=== PATIENT | female | born 1960 | race Caucasian/White ===

== ENCOUNTER → 2019-04-09 | Outpatient (REF) | payer OTHER ==
[2019-04-09 11:54] LABS: HEMATOCRIT 39.8 % (36.0-47.0); HEMOGLOBIN 12.4 g/dl (12.0-15.5); MEAN CORPUSCULAR HGB CONC 31.2 g/dl (32.0-36.5); MEAN CORPUSCULAR VOLUME 105.9 fl (80.0-96.0); PLATELET COUNT, AUTOMATED 221 10^3/uL (150-450); RED BLOOD COUNT 3.76 10^6/uL (4.00-5.40); WHITE BLOOD COUNT 7.5 10^3/uL (4.0-10.0)
[2019-04-09 12:04] LABS: ALBUMIN 3.9 GM/DL (3.2-5.2); ALT/SGPT 58 U/L (12-78); BILIRUBIN,TOTAL 0.6 MG/DL (0.2-1.0); BLOOD UREA NITROGEN 14 MG/DL (7-18); CALCIUM LEVEL 9.2 MG/DL (8.5-10.1); CARBON DIOXIDE LEVEL 26 MEQ/L (21-32); CHLORIDE LEVEL 113 MEQ/L (98-107); CHOLESTEROL LEVEL 133 MG/DL (<200); CHOLESTEROL RISK RATIO 2.557 (<5); CREATININE FOR GFR 0.85 MG/DL (0.55-1.30); FERRITIN 38 NG/ML (8-252); FREE T4 0.55 NG/DL (0.76-1.46); GLOMERULAR FILTRATION RATE > 60.0 (>51); GLUCOSE, FASTING 85 MG/DL (70-100); HDL CHOLESTEROL 52 MG/DL (>40); LDL CHOLESTEROL 63 MG/DL (<100); NON-HDL-C 81 MG/DL; POTASSIUM SERUM 4.6 MEQ/L (3.5-5.1); SODIUM LEVEL 143 MEQ/L (136-145); TOTAL PROTEIN 6.6 GM/DL (6.4-8.2); TRIGLYCERIDES LEVEL 92 MG/DL (<150)
[2019-04-09 12:09] LABS: FOLATE 14.1 NG/ML; TOTAL 25(OH) VITAMIN D 20.5 NG/ML (30.0-100.0); VITAMIN B12 LEVEL > 2000 PG/ML
[2019-04-09 12:37] LABS: CREATININE, URINE 97.3 MG/DL; MAU/CREAT RATIO 119.2 MCG/MG (0.0-30.0)
== END ==
LOC: M SFHCPLAZ 08:37
PROVIDERS: ATTEND Nurse Practitioner Family
DX: Z98.84 Bariatric surgery status (principal); I10 Essential (primary) hypertension; E03.9 Hypothyroidism, unspecified

== ENCOUNTER → 2019-06-05 | Outpatient (REF) | payer OTHER | LOC: M SFHCPLAZ 09:35 | PROVIDERS: ATTEND Nurse Practitioner Family | DX: Z12.4 Encounter for screening for malignant neoplasm of cervix (principal) ==

== ENCOUNTER → 2019-07-02 | Outpatient (CLI) | payer OTHER ==
--- NOTE | 2019-07-06 14:08 | REPMRS ---
Patient History The patient states she had a clinical breast exam in 2018. Patient is postmenopausal. Family history of breast cancer at age 60 in mother, breast cancer in paternal grandmother. Priors done @ [facility] about 2 years ago. Patient states she has had a number of cysts removed from both breast years ago. Digital Woman Screen Mammo: July 02, 2019 - Exam #: [id number] Bilateral CC and MLO view(s) were taken. Technologist: Heather Aparicio, Technologist Prior study comparison: January 03, 2017, bilateral digital mammo screening bilat, performed at [facility]. January 26, 2015, bilateral digital mammo screening bilat, performed at [facility]. January 30, 2013, bilateral digital mammo screening bilat, performed at [facility]. FINDINGS: The breast tissue is heterogeneously dense. This may lower the sensitivity of mammography. There is a stable area of architectural distortion in the medial aspect of the left breast in this patient reports having had multiple cysts removed. There is a moderate amount of heterogeneously dense fibroglandular tissue which is fairly symmetric. There is no interval development of dominant mass, architectural distortion, or grouped microcalcification typical of malignancy. There has been no change in the appearance of the mammogram from the prior studies. 3-D tomosynthesis shows no additional findings. Assessment: BI-RADS/ACR category 2 mammogram. Benign Findings. Recommendation Breast MRI of both breasts in 6 months. Routine screening mammogram of both breasts in 1 year (for women over age 40). This patient's Lifetime Breast Cancer RIsk is estimated at 21.2 %. Annual screening Breast MRI scanniing is recommended for patient's whose lifetime risk assessment is over 20%. This mammogram was interpreted with the aid of an FDA-approved computer-aided dectection system. Electronically Signed By: Dani Barakat MD 07/06/19 [id number]
== END ==
LOC: M WHC 07:59
PROVIDERS: ATTEND Nurse Practitioner Family
DX: Z12.31 Encounter for screening mammogram for malignant neoplasm of breast (principal)

== ENCOUNTER → 2019-07-23 | Outpatient (REF) | payer OTHER ==
[2019-07-23 12:35] LABS: HEMATOCRIT 39.1 % (36.0-47.0); HEMOGLOBIN 12.4 g/dl (12.0-15.5); MEAN CORPUSCULAR HEMOGLOBIN 32.7 pg (27.0-33.0); MEAN CORPUSCULAR HGB CONC 31.7 g/dl (32.0-36.5); MEAN CORPUSCULAR VOLUME 103.2 fl (80.0-96.0); PLATELET COUNT, AUTOMATED 195 10^3/uL (150-450); RED BLOOD COUNT 3.79 10^6/uL (4.00-5.40); WHITE BLOOD COUNT 6.8 10^3/uL (4.0-10.0)
[2019-07-23 12:42] LABS: ALBUMIN 4.1 GM/DL (3.2-5.2); ALT/SGPT 51 U/L (12-78); BILIRUBIN,TOTAL 0.5 MG/DL (0.2-1.0); BLOOD UREA NITROGEN 18 MG/DL (7-18); CARBON DIOXIDE LEVEL 23 MEQ/L (21-32); CHLORIDE LEVEL 116 MEQ/L (98-107); CREATININE FOR GFR 0.81 MG/DL (0.55-1.30); FREE T4 0.88 NG/DL (0.76-1.46); GLOMERULAR FILTRATION RATE > 60.0 (>51); GLUCOSE, FASTING 92 MG/DL (70-100); SODIUM LEVEL 143 MEQ/L (136-145); THYROID STIMULATING HORMONE 0.985 uIU/ML (0.358-3.740); TOTAL PROTEIN 6.5 GM/DL (6.4-8.2)
[2019-07-23 12:44] LABS: FOLATE 19.6 NG/ML; VITAMIN B12 LEVEL > 2000 PG/ML
[2019-07-23 12:45] LABS: TOTAL 25(OH) VITAMIN D 34.7 NG/ML (30.0-100.0)
[2019-07-23 13:27] LABS: CREATININE, URINE 94.5 MG/DL; MAU/CREAT RATIO 576.7 MCG/MG (0.0-30.0)
== END ==
LOC: M SFHCPLAZ 08:34
PROVIDERS: ATTEND Nurse Practitioner Family
DX: I10 Essential (primary) hypertension (principal); E03.9 Hypothyroidism, unspecified; E55.9 Vitamin D deficiency, unspecified

== ENCOUNTER → 2019-07-23 | Outpatient (CLI) | payer OTHER ==
[2019-07-23 12:37] LABS: BLOOD UREA NITROGEN 18 MG/DL (7-18); CREATININE FOR GFR 0.78 MG/DL (0.55-1.30); GLOMERULAR FILTRATION RATE > 60.0 (>51)
== END ==
LOC: M PLALAB 09:03
PROVIDERS: ATTEND Psychiatry & Neurology Psychiatry
DX: Z51.81 Encounter for therapeutic drug level monitoring (principal); Z79.899 Other long term (current) drug therapy

== ENCOUNTER → 2019-07-28 | Outpatient (REF) | payer OTHER ==
[2019-07-28 12:31] LABS: CALCIUM, URINE 6.1 MG/DL
[2019-07-28 14:48] LABS: CALCIUM, 24 HOUR URINE 152.5 MG/24HR (42-353)
== END ==
LOC: M SFHCPLAZ 11:28
PROVIDERS: ATTEND Nurse Practitioner Family
DX: E34.9 Endocrine disorder, unspecified (principal)

== ENCOUNTER → 2019-08-17 | Outpatient (CLI) | payer OTHER ==
--- NOTE | 2019-08-26 09:48 | DEXA ---
AP SPINE L1 - L4 1.058 -1.1 0.0 LT FEMUR TOTAL 0.706 -2.4 -1.6 LT NECK 0.741 -2.1 -1.0 RT FEMUR TOTAL 0.758 -2.0 -0.8 RT NECK 0.714 -2.3 -1.5 TOTAL BODY TOTAL OTHER COMMENTS: There is low bone density of the spine and hips. FOLLOW-UP: Recommendation for the next bone density exam: 2 years. JEANETTE
== END ==
LOC: M WHC 14:29
PROVIDERS: ATTEND Nurse Practitioner Family
DX: E34.9 Endocrine disorder, unspecified (principal); M85.89 Other specified disorders of bone density and structure, multiple sites; Z82.62 Family history of osteoporosis; Z84.89 Family history of other specified conditions

== ENCOUNTER → 2019-10-30 | Outpatient (REF) | payer OTHER ==
[2019-10-30 17:48] LABS: BLOOD UREA NITROGEN 8 MG/DL (7-18); CALCIUM LEVEL 9.4 MG/DL (8.5-10.1); CARBON DIOXIDE LEVEL 26 MEQ/L (21-32); CHLORIDE LEVEL 111 MEQ/L (98-107); CREATININE FOR GFR 0.84 MG/DL (0.55-1.30); FREE T4 0.89 NG/DL (0.76-1.46); GLOMERULAR FILTRATION RATE > 60.0 (>51); GLUCOSE, FASTING 80 MG/DL (70-100); POTASSIUM SERUM 4.2 MEQ/L (3.5-5.1); SODIUM LEVEL 143 MEQ/L (136-145); TOTAL 25(OH) VITAMIN D 38.1 NG/ML (30.0-100.0)
[2019-10-30 18:31] LABS: CREATININE, URINE 48.5 MG/DL; MAU/CREAT RATIO 449.4 MCG/MG (0.0-30.0)
== END ==
LOC: M SFHCPLAZ 13:42
PROVIDERS: ATTEND Nurse Practitioner Family
DX: E03.9 Hypothyroidism, unspecified (principal); I10 Essential (primary) hypertension; R80.9 Proteinuria, unspecified; E55.9 Vitamin D deficiency, unspecified

== ENCOUNTER → 2019-12-02 | Outpatient (REF) | payer OTHER ==
[~2019-12-02] MED LIST: AMLO10TA5; CLON0.5T2; FLUO40CA; LEVO200T4; LITH1TAB; LITH45TASA; PROZ40CA; QUET200T2; REME45TA2; TOPI50TA9; TRAZ-257
[2019-12-02 17:37] LABS: COMPLEMENT C3 86 MG/DL (90-180)
[2019-12-02 17:38] LABS: COMPLEMENT C4 19 MG/DL (10-40); TOTAL PROTEIN 6.5 GM/DL (6.4-8.2)
[2019-12-02 18:15] LABS: TOTAL PROTEIN,RANDOM URINE 169.4 MG/DL (0.0-12.0)
[2019-12-03 11:35] LABS: ALBUMIN 4.19 GM/DL (3.29-5.55); ALBUMIN % 64.5 % (55.8-66.1); ALPHA-1-GLOBULIN % 3.8 % (2.9-4.9); ALPHA-1-GLOBULINS 0.25 GM/DL (0.17-0.41); ALPHA-2-GLOBULINS 0.56 GM/DL (0.42-0.99); ALPHA-2-GLOBULINS % 8.6 % (7.1-11.8); BETA-1-GLOBULINS % 6.1 % (4.7-7.2); BETA-2-GLOBULINS 0.29 GM/DL (0.19-0.55); BETA-2-GLOBULINS % 4.4 % (3.2-6.5); GAMMA GLOBULIN % 12.6 % (11.1-18.8); GAMMA GLOBULINS 0.82 GM/DL (0.65-1.58)
[2019-12-04 13:07] LABS: HEPATITIS B SURFACE ANTIBODY NEGATIVE (POSITIVE)
[2019-12-04 13:17] LABS: HEPATITIS B SURFACE ANTIGEN NEGATIVE (NEGATIVE)
[2019-12-04 13:45] LABS: HEPATITIS C VIRUS ABY INDEX 0.1 INDEX (<0.8)
[2019-12-04 13:46] LABS: HEPATITIS B CORE ANTIBODY IGM NEGATIVE (NEGATIVE)
[2019-12-08 16:09] LABS: ANCA-ATYPICAL <1:20 titer (Neg:<1:20); ANTI DS-DNA AB Negative (Negative); ANTINUCLEAR ANTIBODIES DIRECT Negative (Negative); CYTOPLASMIC NEUTROP AB ANCA-C <1:20 titer (Neg:<1:20); FREE KAPPA LIGHT CHAINS SERUM 20.5 mg/L (3.3-19.4); FREE LAMBDA LIGHT CHAINS SERUM 20.2 mg/L (5.7-26.3); KAPPA/LAMBDA RATIO SERUM 1.01 (0.26-1.65); PERINUCLEAR AB ANCA-P <1:20 titer (Neg:<1:20)
== END ==
LOC: M LAB REF 16:43
PROVIDERS: ATTEND Internal Medicine Nephrology
DX: R80.9 Proteinuria, unspecified (principal)

== ENCOUNTER → 2019-12-11 | Outpatient (CLI) | payer OTHER ==
[~2019-12-11] MED LIST changes: -AMLO10TA5; +AMLO1TAB25; +BRIN10TA4 PO; +POTA10TA14 PO
--- NOTE | 2019-12-11 09:51 | REP ---
RENAL ULTRASOUND: Real-time sonographic evaluation of the kidneys performed. The kidneys are normal in size and echotexture, right kidney measuring 10.7 x 5.7 x 4.3 cm and left kidney 10.7 x 4.5 x 4.9 cm. There is no renal mass or hydronephrosis. On duplex Doppler evaluation, resistive index 0.65 for the right kidney and 0.59 for the left kidney. Urinary bladder is well distended with no mass or calculus. IMPRESSION: Negative renal ultrasound.
== END ==
LOC: M WHC 08:08
PROVIDERS: ATTEND Internal Medicine Nephrology
DX: N18.2 Chronic kidney disease, stage 2 (mild) (principal); R80.9 Proteinuria, unspecified; I12.9 Hypertensive chronic kidney disease with stage 1 through stage 4 chronic kidney disease, or unspecified chronic kidney disease

== ENCOUNTER 2019-12-13 16:00 | Emergency (ER) | payer OTHER ==
[~2019-12-13] VITALS: Ht 167.6 cm; Wt 56.9 kg
[2019-12-13] MEDS ORDERED: REME45TA2 (16:07)
[2019-12-13] MEDS ORDERED: QUET200T2 (16:07)
[2019-12-13] MEDS ORDERED: TOPI50TA9 (16:07)
[2019-12-13] MEDS ORDERED: LITH1TAB (16:07)
[2019-12-13] MEDS ORDERED: CLON0.5T2 (16:07)
[2019-12-13] MEDS ORDERED: FLUO40CA (16:07)
[2019-12-13] MEDS ORDERED: LITH45TASA (16:07)
[2019-12-13] MEDS ORDERED: PROZ40CA (16:07)
[2019-12-13] MEDS ORDERED: LEVO200T4 (16:07)
[2019-12-13] MEDS ORDERED: TRAZ-257 (16:07)
[2019-12-13] MEDS ORDERED: AMLO1TAB25 (16:07)
[2019-12-13] MEDS ORDERED: NS 1,000 ML IV ONE (18:15)
[2019-12-13 18:42] LABS: BASO # 0.1 10^3/uL (0.0-0.2); BASO % 0.7 % (0.0-1.0); EOS # 0.3 10^3/uL (0.0-0.5); EOS % 3.9 % (0.0-3.0); HEMOGLOBIN 11.4 g/dl (12.0-15.5); LYMPH # 1.9 10^3/uL (1.5-5.0); LYMPH % 25.5 % (24.0-44.0); MEAN CORPUSCULAR HEMOGLOBIN 32.7 pg (27.0-33.0); MEAN CORPUSCULAR HGB CONC 31.7 g/dl (32.0-36.5); MEAN CORPUSCULAR VOLUME 103.2 fl (80.0-96.0); MONO # 0.4 10^3/uL (0.0-0.8); NEUTROPHILS # 4.8 10^3/uL (1.5-8.5); NEUTROPHILS % 64.6 % (36.0-66.0); PLATELET COUNT, AUTOMATED 183 10^3/uL (150-450); RED BLOOD COUNT 3.49 10^6/uL (4.00-5.40); WHITE BLOOD COUNT 7.4 10^3/uL (4.0-10.0)
[2019-12-13 19:15] LABS: ALBUMIN 3.4 GM/DL (3.2-5.2); ALT/SGPT 88 U/L (12-78); BILIRUBIN,DIRECT 0.1 MG/DL (0.0-0.2); BILIRUBIN,TOTAL 0.2 MG/DL (0.2-1.0); CK-MB VALUE MASS < 1.0 NG/ML (<3.6); CPK CREATINE PHOSPHOKINASE 31 U/L (26-192); LIPASE 92 U/L (73-393); MB/CK RELATIVE INDEX 3.23 (< OR =4); NT-PRO BNP 330 PG/ML (<125); TOTAL PROTEIN 5.9 GM/DL (6.4-8.2); TROPONIN I < 0.02 NG/ML (< 0.10)
--- NOTE | 2019-12-13 19:25 | ECGEPIP ---
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
[2019-12-13 19:47] VITALS: BP 114/58
== END 2019-12-13 20:23 | disposition home or self-care (01) ==
LOC: M ED 16:00
DX: M79.10 Myalgia, unspecified site (principal); R53.83 Other fatigue; D64.9 Anemia, unspecified; R00.1 Bradycardia, unspecified; R80.9 Proteinuria, unspecified; I10 Essential (primary) hypertension; E03.9 Hypothyroidism, unspecified; F41.9 Anxiety disorder, unspecified; F31.9 Bipolar disorder, unspecified; Z79.899 Other long term (current) drug therapy

== ENCOUNTER 2020-01-28 11:22 | Emergency (ER) | payer OTHER ==
[~2020-01-28] VITALS: Ht 167.6 cm; Wt 56.0 kg
[~2020-01-28 11:22] MED LIST changes: -BRIN10TA4 PO; -POTA10TA14 PO
[2020-01-28] MEDS ORDERED: BRIN10TA4 PO (11:34)
[2020-01-28] MEDS ORDERED: POTA10TA14 PO (11:34)
[2020-01-28] MEDS ORDERED: NS 1,000 ML IV ONE (12:00)
[2020-01-28] MEDS ORDERED: ONDANSETRON 4MG/2ML VIAL IV ONE (12:00)
[2020-01-28] MEDS ORDERED: KETOROLAC 30 MG/ML 1ML VIAL IV ONE (12:00)
[2020-01-28] MEDS ORDERED: ISOVUE-370 76% 100ML VIAL As Ordered ONE (12:24)
[2020-01-28 12:35] LABS: BASO % 0.6 % (0.0-1.0); EOS # 0.2 10^3/uL (0.0-0.5); EOS % 2.9 % (0.0-3.0); HEMATOCRIT 41.2 % (36.0-47.0); HEMOGLOBIN 13.1 g/dl (12.0-15.5); LYMPH # 1.3 10^3/uL (1.5-5.0); LYMPH % 18.6 % (24.0-44.0); MEAN CORPUSCULAR HEMOGLOBIN 32.6 pg (27.0-33.0); MEAN CORPUSCULAR HGB CONC 31.8 g/dl (32.0-36.5); MEAN CORPUSCULAR VOLUME 102.5 fl (80.0-96.0); MONO # 0.3 10^3/uL (0.0-0.8); MONO % 4.7 % (0.0-5.0); NEUTROPHILS # 5.1 10^3/uL (1.5-8.5); NEUTROPHILS % 72.8 % (36.0-66.0); PLATELET COUNT, AUTOMATED 214 10^3/uL (150-450); RED BLOOD COUNT 4.02 10^6/uL (4.00-5.40)
[2020-01-28 12:54] LABS: ALBUMIN 4.1 GM/DL (3.2-5.2); BILIRUBIN,DIRECT 0.2 MG/DL (0.0-0.2); BILIRUBIN,TOTAL 0.5 MG/DL (0.2-1.0)
--- NOTE | 2020-01-28 13:10 | REPVR ---
PROCEDURE INFORMATION: Exam: CT Abdomen And Pelvis With Contrast Exam date and time: 01/28/2020 11:53 AM Age: 59 years old Clinical indication: Nausea; Additional info: Sudden severe abd pain with n/v TECHNIQUE: Imaging protocol: Computed tomography of the abdomen and pelvis with intravenous contrast. Radiation optimization: All CT scans at this facility use at least one of these dose optimization techniques: automated exposure control; mA and/or kV adjustment per patient size (includes targeted exams where dose is matched to clinical indication); or iterative reconstruction. Contrast material: ISOVUE 370; Contrast volume: 100 ml; Contrast route: INTRAVENOUS (IV); COMPARISON: RENAL US 12/11/2019 8:30 AM FINDINGS: Liver: Normal. No mass. Gallbladder and bile ducts: There has been a cholecystectomy. Pancreas: Normal. No ductal dilation. Spleen: Normal. No splenomegaly. Adrenals: Normal. No mass. Kidneys and ureters: Mild bilateral hydroureteronephrosis. No obstructing calculus is identified. Slightly low-lying right kidney. Stomach and bowel: Postsurgical change of the stomach. Apparent mobile cecum, located within the left lower quadrant. No cecal volvulus. The colon is redundant. No evidence of bowel obstruction.No bowel wall pneumatosis. Appendix: See "Stomach and bowel" finding. Intraperitoneal space: Trace pelvic ascites. Vasculature: Minimal atherosclerotic changes. Lymph nodes: Few subcentimeter mesenteric lymph nodes. No pathologically enlarged lymph nodes. Bladder: Moderate distension of the urinary bladder Reproductive: Bilateral tubal ligation clips. Bones/joints: Mild bilateral hip joint DJD. Degenerative change of the spine. Soft tissues: Postsurgical change of the ventral abdominal wall. IMPRESSION: 1. Trace pelvic ascites. 2. Moderate distention of the urinary bladder, which likely accounts for mild bilateral hydroureteronephrosis. Electronically signed by: Trang Chou On 01/28/2020 13:10:44 PM
[2020-01-28 14:12] LABS: BILIRUBIN, URINE MANUAL NEGATIVE (NEGATIVE); GLUCOSE, URINE (UA) MANUAL NEGATIVE (NEGATIVE); KETONE, URINE MANUAL NEGATIVE (NEGATIVE); UROBILINOGEN, URINE MANUAL NORMAL (NORMAL)
[2020-01-28 15:04] VITALS: BP 125/59
--- NOTE | 2020-02-01 15:39 | ED PDOC ---
Post-Departure Follow-Up ene damico faxed formal report of ct abd/p for fu Charley Carpenter MD Feb 01, 2020 15:39
--- NOTE | 2020-02-16 13:36 | ECGEPIP ---
[facility] - ED Test Date: 2020-01-28 Pat Name: VIPIN HAGER Department: Room: - Gender: Female Supervisor Spinning: panfilo : 1960 Requested By: RODGER LOPES Order Number: [id number] Reading MD: Blanka Williamson Measurements Intervals [place] Rate: 42 P: 44 IA: 189 QRS: 31 QRSD: 93 T: 27 QT: 477 QTc: 402 Interpretive Statements SINUS BRADYCARDIA BORDERLINE ECG SEE SCANNED DOWNTIME REPORT
== END 2020-01-28 15:05 | disposition home or self-care (01) ==
LOC: M ED 11:22
DX: R10.9 Unspecified abdominal pain (principal); R18.8 Other ascites; N32.89 Other specified disorders of bladder; N13.30 Unspecified hydronephrosis; R11.2 Nausea with vomiting, unspecified; I10 Essential (primary) hypertension; E03.9 Hypothyroidism, unspecified; F31.9 Bipolar disorder, unspecified; F41.9 Anxiety disorder, unspecified; Z87.19 Personal history of other diseases of the digestive system
CPT/HCPCS: 74177; 80047; 80076; 83690; 85025; 93005; 96361; 96374; 96375; 99284; J1885; J2405; Q9967

== ENCOUNTER → 2020-02-10 | Outpatient (CLI) | payer OTHER ==
[~2020-02-10] MED LIST changes: +BRIN10TA4 PO; +POTA10TA14 PO; +PROHANCE 279.3MG/ML 15ML VIAL As Ordered ONE
--- NOTE | 2020-03-01 13:52 | REP ---
BILATERAL BREAST MRI WITH AND WITHOUT CONTRAST HISTORY: High risk of breast cancer. COMPARISON: Mammogram 07/02/2019. [facility] lifetime risk of breast cancer 21.2%. TECHNIQUE: Multiple sequences obtained in the axial, coronal, and sagittal planes prior to and following the intravenous administration of 11 mL ProHance. Images are evaluated in the Mytonomy software including dynamic post IV gadolinium axial T1 fat sat images, subtraction images, cover overlay images, and MIP reconstruction images. FINDINGS: There is an extreme pattern of parenchymal tissue bilaterally. There are a few tiny cysts scattered in the right breast, only a few millimeters in diameter. There are mildly dilated ducts anteriorly in the lower outer right breast. There is no axillary adenopathy bilaterally. I see no suspicious enhancing mass or morphologic abnormality bilaterally. IMPRESSION: BI-RADS Category 2 benign bilateral breast MRI. A few tiny cysts are seen in the right breast, as well as mildly dilated ducts. There is no suspicious enhancing mass or morphologic abnormality bilaterally. Supplemental screening MRI of the breasts is recommended for patients with an elevated lifetime risk of breast cancer of 20% or greater. The MRI and the annual screening mammography should be staggered every six months. [facility]
== END ==
LOC: M RAD 08:03
PROVIDERS: ATTEND Nurse Practitioner Family
DX: Z12.31 Encounter for screening mammogram for malignant neoplasm of breast (principal); N60.11 Diffuse cystic mastopathy of right breast
CPT/HCPCS: A9576; C8908

== ENCOUNTER → 2020-03-16 | Outpatient (CLI) | payer OTHER ==
[~2020-03-16] MED LIST changes: -PROHANCE 279.3MG/ML 15ML VIAL As Ordered ONE
[2020-03-16 14:06] LABS: BLOOD UREA NITROGEN 11 MG/DL (7-18); CREATININE FOR GFR 0.96 MG/DL (0.55-1.30); GLOMERULAR FILTRATION RATE > 60.0 (>51)
== END ==
LOC: M PLALAB 10:52
PROVIDERS: ATTEND Psychiatry & Neurology Psychiatry
DX: Z79.899 Other long term (current) drug therapy (principal)

== ENCOUNTER → 2020-03-16 | Outpatient (REF) | payer OTHER ==
[2020-03-16 13:34] LABS: BASO # 0.1 10^3/uL (0.0-0.2); BASO % 1.3 % (0.0-1.0); EOS # 0.3 10^3/uL (0.0-0.5); EOS % 4.4 % (0.0-3.0); HEMATOCRIT 40.1 % (36.0-47.0); HEMOGLOBIN 12.7 g/dl (12.0-15.5); LYMPH # 1.7 10^3/uL (1.5-5.0); MEAN CORPUSCULAR HEMOGLOBIN 32.5 pg (27.0-33.0); MEAN CORPUSCULAR HGB CONC 31.7 g/dl (32.0-36.5); MEAN CORPUSCULAR VOLUME 102.6 fl (80.0-96.0); MONO # 0.4 10^3/uL (0.0-0.8); MONO % 5.7 % (0.0-5.0); NEUTROPHILS # 4.3 10^3/uL (1.5-8.5); NEUTROPHILS % 63.3 % (36.0-66.0); PLATELET COUNT, AUTOMATED 224 10^3/uL (150-450); RED BLOOD COUNT 3.91 10^6/uL (4.00-5.40); WHITE BLOOD COUNT 6.8 10^3/uL (4.0-10.0)
[2020-03-16 14:22] LABS: ALBUMIN 4.1 GM/DL (3.2-5.2); ALT/SGPT 79 U/L (12-78); BILIRUBIN,TOTAL 0.4 MG/DL (0.2-1.0); BLOOD UREA NITROGEN 11 MG/DL (7-18); CALCIUM LEVEL 9.7 MG/DL (8.5-10.1); CARBON DIOXIDE LEVEL 25 MEQ/L (21-32); CHLORIDE LEVEL 111 MEQ/L (98-107); CREATININE FOR GFR 0.96 MG/DL (0.55-1.30); FERRITIN 83 NG/ML (8-252); FOLATE 16.3 NG/ML; FREE T4 0.86 NG/DL (0.76-1.46); GLOMERULAR FILTRATION RATE > 60.0 (>51); GLUCOSE, FASTING 87 MG/DL (70-100); POTASSIUM SERUM 3.7 MEQ/L (3.5-5.1); SODIUM LEVEL 140 MEQ/L (136-145); TOTAL 25(OH) VITAMIN D 29.8 NG/ML (30.0-100.0); TOTAL PROTEIN 6.8 GM/DL (6.4-8.2); VITAMIN B12 LEVEL 1184 PG/ML
== END ==
LOC: M SFHCPLAZ 10:53
PROVIDERS: ATTEND Nurse Practitioner Family
DX: D64.9 Anemia, unspecified (principal); R79.89 Other specified abnormal findings of blood chemistry; E03.9 Hypothyroidism, unspecified; E55.9 Vitamin D deficiency, unspecified

== ENCOUNTER → 2020-03-23 | Outpatient (CLI) | payer OTHER ==
--- NOTE | 2020-03-23 09:47 | REP ---
INDICATION: N13.30 HYDROURETERONEPHROSIS COMPARISON: 05/25/2019 TECHNIQUE: Real time clarke scale ultrasound examination using curved array transducer. Color Doppler evaluation of the intrarenal vasculature performed. FINDINGS: Bilateral kidneys are normal in contour, size, echogenicity, and reniform shape. No hydronephrosis, nephrolithiasis, cystic or renal mass lesion appreciated. No perinephric fluid collection. Right kidney measures 11.5 x 5.6 x 3.7 cm (RI 0.58). Left kidney measures 11.8 x 5.7 x 5.7 cm (RI 0.61). The bladder is under distended and grossly unremarkable current measuring 8.9 x 5.0 x 2.5 cm (58 cc). IMPRESSION: 1. Normal renal ultrasound. <Electronically signed by Aleksandar Powers > 03/23/20 0943
== END ==
LOC: M WHC 08:21
PROVIDERS: ATTEND Nurse Practitioner Family
DX: N13.30 Unspecified hydronephrosis (principal)

== ENCOUNTER → 2020-05-10 | Outpatient (REF) | payer OTHER ==
[2020-05-10 16:05] LABS: APPEARANCE, URINE HAZY (CLEAR); BACTERIA, URINE AUTO NEGATIVE (NEGATIVE); BILIRUBIN, URINE AUTO NEGATIVE (NEGATIVE); BLOOD, URINE BLOOD NEGATIVE (NEGATIVE); COLOR, URINE YELLOW (YELLOW); GLUCOSE, URINE (UA) AUTO NEGATIVE (NEGATIVE); KETONE, URINE AUTO NEGATIVE (NEGATIVE); LEUKOCYTE ESTERASE, URINE AUTO TRACE (NEGATIVE); NITRITE, URINE AUTO NEGATIVE (NEGATIVE); PROTEIN, URINE AUTO NEGATIVE (NEGATIVE); RBC, URINE AUTO 0 /HPF (0-3); SPECIFIC GRAVITY URINE AUTO 1.008 (1.002-1.035); SQUAMOUS EPITHELIAL CELL UR AU 5 /HPF (0-6); UROBILINOGEN, URINE AUTO 0.2 mg/dL (0.0-2.0); WBC, URINE AUTO 1 /HPF (0-3)
[2020-05-10 16:07] LABS: BASO # 0.1 10^3/uL (0.0-0.2); EOS # 0.3 10^3/uL (0.0-0.5); HEMATOCRIT 37.9 % (36.0-47.0); HEMOGLOBIN 12.1 g/dl (12.0-15.5); LYMPH # 1.5 10^3/uL (1.5-5.0); LYMPH % 22.8 % (24.0-44.0); MEAN CORPUSCULAR HEMOGLOBIN 33.3 pg (27.0-33.0); MEAN CORPUSCULAR HGB CONC 31.9 g/dl (32.0-36.5); MEAN CORPUSCULAR VOLUME 104.4 fl (80.0-96.0); MONO # 0.4 10^3/uL (0.0-0.8); MONO % 5.2 % (0.0-5.0); NEUTROPHILS # 4.5 10^3/uL (1.5-8.5); NEUTROPHILS % 66.9 % (36.0-66.0); PLATELET COUNT, AUTOMATED 215 10^3/uL (150-450); RED BLOOD COUNT 3.63 10^6/uL (4.00-5.40); WHITE BLOOD COUNT 6.7 10^3/uL (4.0-10.0)
[2020-05-10 16:52] LABS: ALT/SGPT 79 U/L (12-78); BILIRUBIN,TOTAL 0.5 MG/DL (0.2-1.0); BLOOD UREA NITROGEN 14 MG/DL (7-18); CALCIUM LEVEL 9.2 MG/DL (8.5-10.1); CARBON DIOXIDE LEVEL 25 MEQ/L (21-32); CHLORIDE LEVEL 111 MEQ/L (98-107); CREATININE FOR GFR 0.88 MG/DL (0.55-1.30); FERRITIN 131 NG/ML (8-252); FOLATE 17.4 NG/ML; FREE T4 0.75 NG/DL (0.76-1.46); GLOMERULAR FILTRATION RATE > 60.0 (>51); GLUCOSE, FASTING 84 MG/DL (70-100); MAGNESIUM LEVEL 2.9 MG/DL (1.8-2.4); POTASSIUM SERUM 4.5 MEQ/L (3.5-5.1); SODIUM LEVEL 140 MEQ/L (136-145); TOTAL PROTEIN 6.6 GM/DL (6.4-8.2); VITAMIN B12 LEVEL 1507 PG/ML
== END ==
LOC: M SFHCPLAZ 11:02
PROVIDERS: ATTEND Nurse Practitioner Family
DX: R53.83 Other fatigue (principal); R79.89 Other specified abnormal findings of blood chemistry; E03.9 Hypothyroidism, unspecified; Z98.84 Bariatric surgery status; R39.15 Urgency of urination

== ENCOUNTER → 2020-06-08 | Outpatient (REF) | payer OTHER ==
[2020-06-08 13:56] LABS: ALBUMIN 3.9 GM/DL (3.2-5.2); BILIRUBIN,TOTAL 0.6 MG/DL (0.2-1.0); CALCIUM LEVEL 9.4 MG/DL (8.5-10.1); CREATININE FOR GFR 1.05 MG/DL (0.55-1.30); FREE T4 0.81 NG/DL (0.76-1.46); GLOMERULAR FILTRATION RATE 57.1 (>51); MAGNESIUM LEVEL 2.9 MG/DL (1.8-2.4); POTASSIUM SERUM 4.2 MEQ/L (3.5-5.1); THYROID STIMULATING HORMONE 32.6 uIU/ML (0.358-3.740); TOTAL PROTEIN 6.6 GM/DL (6.4-8.2)
[2020-06-08 13:56] LABS: TOTAL PROTEIN,RANDOM URINE 164.4 MG/DL (0.0-12.0)
[2020-06-08 14:07] LABS: APPEARANCE, URINE HAZY (CLEAR); BACTERIA, URINE AUTO NEGATIVE (NEGATIVE); BILIRUBIN, URINE AUTO NEGATIVE (NEGATIVE); BLOOD, URINE BLOOD NEGATIVE (NEGATIVE); COLOR, URINE AMBER (YELLOW); GLUCOSE, URINE (UA) AUTO NEGATIVE (NEGATIVE); KETONE, URINE AUTO TRACE mg/dL (NEGATIVE); LEUKOCYTE ESTERASE, URINE AUTO TRACE (NEGATIVE); MUCUS, URINE SMALL (NEGATIVE); NITRITE, URINE AUTO NEGATIVE (NEGATIVE); PROTEIN, URINE AUTO 2+ mg/dL (NEGATIVE); RBC, URINE AUTO 2 /HPF (0-3); SPECIFIC GRAVITY URINE AUTO 1.012 (1.002-1.035); SQUAMOUS EPITHELIAL CELL UR AU 3 /HPF (0-6); UROBILINOGEN, URINE AUTO 0.2 mg/dL (0.0-2.0); WBC, URINE AUTO 2 /HPF (0-3)
== END ==
LOC: M SFHCPLAZ 10:03
PROVIDERS: ATTEND Nurse Practitioner Family
DX: E03.9 Hypothyroidism, unspecified (principal); R00.1 Bradycardia, unspecified

== ENCOUNTER → 2020-06-09 | Outpatient (CLI) | payer OTHER | LOC: M PLALAB 10:24 | PROVIDERS: ATTEND Internal Medicine Cardiovascular Disease | DX: R00.1 Bradycardia, unspecified (principal) ==

== ENCOUNTER → 2020-07-15 | Outpatient (REF) | payer OTHER ==
[~2020-07-15] MED LIST changes: +ENEMCAP PR; +MAGN500T6 PO; +PRIS100T PO
[2020-07-15 11:05] LABS: ALBUMIN 4.2 GM/DL (3.2-5.2); BILIRUBIN,TOTAL 0.4 MG/DL (0.2-1.0); CALCIUM LEVEL 9.7 MG/DL (8.5-10.1); CREATININE FOR GFR 1.13 MG/DL (0.55-1.30); FREE T4 1.98 NG/DL (0.76-1.46); GLOMERULAR FILTRATION RATE 52.5 (>51); POTASSIUM SERUM 4.2 MEQ/L (3.5-5.1); THYROID STIMULATING HORMONE 0.143 uIU/ML (0.358-3.740); TOTAL 25(OH) VITAMIN D 37.2 NG/ML (30.0-100.0); TOTAL PROTEIN 6.8 GM/DL (6.4-8.2)
== END ==
LOC: M SFHCPLAZ 09:01
PROVIDERS: ATTEND Nurse Practitioner Family
DX: I10 Essential (primary) hypertension (principal); E03.9 Hypothyroidism, unspecified; E55.9 Vitamin D deficiency, unspecified

== ENCOUNTER 2020-07-19 13:53 | Emergency (ER) | payer OTHER ==
[~2020-07-19] VITALS: Ht 167.6 cm; Wt 45.5 kg
[~2020-07-19 13:53] MED LIST changes: -ENEMCAP PR; -MAGN500T6 PO; -PRIS100T PO
--- OUTSIDE RECORDS SUMMARY | 2020-07-19 14:00 | CCD ---
Author Author [facility] Organization [facility] Address Unknown Phone Unavailable Care Team Providers Care Metal Base Blocker Name Role Phone Dalila Barnes Unavailable PROBLEMS Type Condition ICD9-CM Code [id number] Code Onset Dates Condition S tatus W/U Status Risk SNOMED Code Notes Problem Migraine without aura and without status migrain osus, not intractable G43.009 Active confirmed 352258904 Problem Acquired hypothyroidism E03.9 Active confirmed 556491084 Problem Bariatric surgery status Z98.84 Active confirmed 601900912 Problem Vitamin D deficiency E55.9 Active confirmed 44956309 Problem Essential hypertension I10 Active confirmed 61494146 Problem Major depressive disorder, recurrent, moderate F33 .1 Active confirmed 738585508 Problem Generalized anxiety disorder F41.1 Active confirme d 67975105 Problem Elevated parathyroid hormone E34.9 Active confirme d 7107372 Problem Macrocytosis D75.89 Active confirmed 5242779 00 Problem Ventral hernia without obstruction or gangrene K43 .9 Active confirmed 965789532 Problem Decreased appetite R63.0 Active confirmed 6 4654745 Problem At high risk for breast cancer Z91.89 Active c onfirmed 524852235479709 Problem Elevated LFTs R79.89 Active confirmed 803077 001 Problem Bipolar disorder, in full remission, most recent episode depressed F31.76 Active confirmed 69638122 Problem Microalbuminuria R80.9 Active confirmed 312 968458 Problem Osteopenia after menopause M85.80 Active confirmed 722836625 Problem Hyperparathyroidism E21.3 Active confirmed 91656937 Problem Hypoglycemia E16.2 Active confirmed 1205495 03 ALLERGIES No Known Allergies ENCOUNTERS from 1960 to 2020-07-15 Encounter Location Date Provider Diagnosis [facility] [address] [place] [address] Jul, 2 021 [facility] IMMUNIZATIONS Vaccine Route Administration Date Status Influenza (18 yrs & older) Flublok IM Intramuscular Mar 16, 2020 Administered Influenza (18 yrs & older) Flublok IM Intramuscular Apr 07, 2019 Administered zz*Influenza Preservative Free (36 months & up) Unknown Apr 07, 2019 Administered SOCIAL HISTORY Tobacco Use: Social History Observation Description Date Details (start date - stop date) Never Smoker Sex Assigned At : Social History Observation Description Sex Assigned At Unknown Education: Question Answer Notes Level of Education: College Audit Question Answer Notes Total Score: 0 Interpretation: Alcohol Education Language: Question Answer Notes Languages spoken: Liberian Moravian: Question Answer Notes Moravian 05 Spiritism Sexual Hx: Question Answer Notes Had sex in the last 12 months (vaginal, oral, or anal)? No LMP: Ablation Have you ever had an STD? No Drug and Alcohol Question Answer Notes Total Score: 0 Interpretation: No problems reported Tobacco Use: Question Answer Notes Are you a: never smoker REASON FOR REFERRAL No Information VITAL SIGNS No information MEDICATIONS Medication SIG (Take, Route, Frequency, Duration) Notes Start Da te End Date Status Mirtazapine 45 MG 1 tablet at bedtime Orally Once a day for 30 day(s) Active Calcium 600-D 600-200 MG-UNIT taking total of 1200/400 Orally Once a day Active Topiramate 25 MG 1 tablet Orally Once a day for 30 day(s) Jul, Active Ergocalciferol 04236 IU 1 tablet with meal Orally once a week for 90 days Active Levothyroxine Sodium 200 MCG 1 tablet in the morning o n an empty stomach Orally Once a day Active Amlodipine Besy-Benazepril HCl 5-20 MG TAKE ONE CAPSULE BY M OUTH EVERY DAY Oral Active Famotidine 40 MG 1 tablet at bedtime Orally Once a day for 30 da y(s) Jun, Active TraZODone HCl 100 MG 2 tablet at bedtime as needed Orally Once a day Active Levothyroxine Sodium 25 MCG 1 tablet in the morning on an empty stomach Orally Once a day with the 200mcg tab May, N ot-Taking [place] Carbonate ER 300 MG 1 tablet at bedtime Orally Once a day for 30 day(s) Active Iron 28 MG 1 tablet Orally Once a day Active Quetiapine Fumarate 200 MG 1 tablet at bedtime Orally before bedtime Not-Taking Bariatric Fusion - 1 tab Orally Daily Active Klonopin 0.5 MG 1 tablet Orally four times a day Not-Taking Clotrimazole 10 MG 1 los Mouth/Throat Five times a day for 14 day(s) Jul, Active [place] Carbonate ER 450 MG 1 tablet at bedtime Orally Once a day for 30 day(s) Active Ziprasidone HCl 20 MG 1 capsule with food Orally Twice a day for 30 day(s) Not-Taking Levothyroxine Sodium 25 MCG 1 tablet in the morning on an empty stomach Orally Once a day for 30 day(s) Jul, Active Ondansetron HCl 4 MG 1 tablet Orally every 8 hour s as needed for nausea/vomiting for 10 day(s) Jul, Active PROCEDURES No Information RESULTS No Results REASON FOR VISIT appt w/ Dr Spann MEDICAL (GENERAL) HISTORY Type Description Date Medical History HTN Medical History Migraines without aura Medical History Hypothyroid - Graves disease s/p ablatio n with MOCTEZUMA in 1984 Medical History Bipolar disorder with major depression - Dr Roy Medical History Hx of Eating Disorder s/p Bariatric surg radha Medical History hyperparathyroidism Medical History Vitamin D deficiency Medical History ventral hernia Medical History Microalbuminuria Medical History Osteopenia after menopause Surgical History gastric bypass 2012 Surgical History Left knee replacement 2014 Surgical History cholecystectomy 1994 Surgical History C section 1994 Surgical History appendectomy 2013 Surgical History Uterine Ablation 2000 Surgical History colonoscopy in [place] 2016 Goals Section No Information Health Concerns No Information MEDICAL EQUIPMENT No Information MENTAL STATUS No Information FUNCTIONAL STATUS No Information ASSESSMENTS No Information PLAN OF TREATMENT Medication Medication Name Sig Start Date Stop Date Levothyroxine Sodium 25 MCG 1 tablet in the morning on an empty stomach Orally Once a day for 30 day(s) Jul, Amlodipine Besy-Benazepril HCl 5-20 MG TAKE ONE CAPSULE BY M OUTH EVERY DAY Oral Ondansetron HCl 4 MG 1 tablet Orally every 8 hour s as needed for nausea/vomiting for 10 day(s) Jul, Clotrimazole 10 MG 1 los Mouth/Throat Five times a day f or 14 day(s) Jul, Topiramate 25 MG 1 tablet Orally Once a day for 30 day(s) Jul Levothyroxine Sodium 200 MCG 1 tablet in the morning o n an empty stomach Orally Once a day Next Appt Details Provider Name:Dalila Barnes, 2020-08-10 11:0 0:00 AM, [address] [place], [address], Insurance Providers Payer Name Payer Address Payer Phone Insured Name Patient Relati onship to Insured Coverage Start Date Coverage End Date [facility] CLAIMS DEPT [address] [facility] [phone] VIPIN CHAUHAN self
--- OUTSIDE RECORDS SUMMARY | 2020-07-19 14:00 | CCD ---
Author Author [facility] Organization [facility] Address Unknown Phone Unavailable Care Team Providers Care Digital Communications Manager Name Role Phone Dalila Barnes Natanael PROBLEMS Type Condition ICD9-CM Code ZZX68-AU Code Onset Dates Condition S tatus SNOMED Code Notes Problem Migraine without aura and without status migrain osus, not intractable G43.009 Active 024119650 Problem Acquired hypothyroidism E03.9 Active 72387932 2 Problem Bariatric surgery status Z98.84 Active 8656140 06 Problem Vitamin D deficiency E55.9 Active 26548052 Problem Essential hypertension I10 Active 20299623 Problem Major depressive disorder, recurrent, moderate F33 .1 Active 427550645 Problem Generalized anxiety disorder F41.1 Active 218 67394 Problem Elevated parathyroid hormone E34.9 Active 726 2008 Problem Macrocytosis D75.89 Active 635086564 Problem Ventral hernia without obstruction or gangrene K43 .9 Active 209487698 Problem Decreased appetite R63.0 Active 77314116 Problem At high risk for breast cancer Z91.89 Active 4 80357107524416 Problem Elevated LFTs R79.89 Active 795588108 Problem Bipolar disorder, in full remission, most recent episode depressed F31.76 Active 56586854 Problem Microalbuminuria R80.9 Active 830354146 Problem Osteopenia after menopause M85.80 Active 39538 4005 Problem Hyperparathyroidism E21.3 Active 82588172 Problem Hypoglycemia E16.2 Active 883588137 ALLERGIES No Known Allergies ENCOUNTERS from 1960 to 2020-06-09 Encounter Location Date Provider Diagnosis [address] [place] [address] Jun, [facility] IMMUNIZATIONS Vaccine Route Administration Date Status Influenza [...] Education Language: Question Answer Notes Languages spoken: Tajik Christian: Question Answer Notes Christian 05 Bahai Sexual Hx: Question Answer Notes Had sex [...] Notes Start Da te End Date Status Levothyroxine Sodium 25 MCG 1 tablet in the morning on an empty stomach Orally Once a day with the 200mcg tab for 30 days May, Active Norvasc 10mg 1 tab orally Daily for 30 days Active Bariatric Fusion - 1 tab Orally Daily Active Ziprasidone HCl 20 MG 1 capsule with food Orally Twice a day for 30 day(s) Active Calcium 600-D 600-200 MG-UNIT taking total of 1200/400 Orally Once a day Active Mirtazapine 45 MG 1 tablet at bedtime Orally Once a day for 30 day(s) Active [place] Carbonate ER 450 MG 1 tablet at bedtime Orally Once a day for 30 day(s) Active Klonopin 0.5 MG 1 tablet Orally four times a day Active Iron 28 MG 1 tablet Orally Once a day Active Quetiapine Fumarate 200 MG 1 tablet at bedtime Orally before bedtime Active Levothyroxine Sodium 200 MCG 1 tablet in the morning o n an empty stomach Orally Once a day for 30 days Active Topiramate 50 MG 1 tablet Orally Once a day for 30 days Active Famotidine 40 MG 1 tablet at bedtime Orally Once a day for 30 da y(s) Jun, Active [place] Carbonate ER 300 MG 1 tablet at bedtime Orally Once a day for 30 day(s) Active TraZODone HCl 100 MG 2 tablet at bedtime as needed Orally Once a day Active Ergocalciferol 72727 IU 1 tablet with meal Orally once a week for 90 days Active PROCEDURES No Information RESULTS No Results REASON FOR VISIT appt/triage MEDICAL (GENERAL) HISTORY Type Description Date Medical [...] Uterine Ablation 2000 Surgical History colonoscopy in [place] 2016 Goals Section No Information Health Concerns No Information MEDICAL EQUIPMENT No Information MENTAL STATUS No Information FUNCTIONAL STATUS No Information ASSESSMENTS No Information PLAN OF TREATMENT Medication Medication Name Sig Start Date Stop Date Levothyroxine Sodium 200 MCG 1 tablet in the morning o n an empty stomach Orally Once a day for 30 days Famotidine 40 MG 1 tablet at bedtime Orally Once a day fo r 30 day(s) Jun, Norvasc 10mg 1 tab orally Daily for 30 days Ergocalciferol 31790 IU 1 tablet with meal Orally once a week fo r 90 days Levothyroxine Sodium 25 MCG 1 tablet in the morning on an empty stomach Orally Once a day with the 200mcg tab for 30 days May, Insurance Providers Payer Name Payer Address Payer Phone Insured Name Patient Relati onship to Insured Coverage Start Date Coverage End Date [facility] CLAIMS DEPT [address] [place] [phone] VIPIN CHAUHAN
--- OUTSIDE RECORDS SUMMARY | 2020-07-19 14:00 | CCD ---
Author Author [facility] Organization [facility] Address Unknown Phone Unavailable Care Team Providers Care Gluing Crew Leader Name Role Phone Dalila Barnes Unavailable PROBLEMS Type Condition ICD9-CM Code FRG23-EK Code Onset Dates Condition S tatus SNOMED Code Notes Problem Migraine without aura and without status migrain osus, not intractable G43.009 Active 094110426 Problem Acquired hypothyroidism E03.9 Active 81093274 2 Problem Bariatric surgery status Z98.84 Active 4919024 06 Problem Vitamin D deficiency E55.9 Active 16541006 Problem Essential hypertension I10 Active 86765566 Problem Major depressive disorder, recurrent, moderate F33 .1 Active 245133307 Problem Generalized anxiety disorder F41.1 Active 218 79427 Problem Elevated parathyroid hormone E34.9 Active 726 2008 Problem Macrocytosis D75.89 Active 713141018 Problem Ventral hernia without obstruction or gangrene K43 .9 Active 646296857 Problem Decreased appetite R63.0 Active 28641375 Problem At high risk for breast cancer Z91.89 Active 4 50585947307332 Problem Elevated LFTs R79.89 Active 256955937 Problem Bipolar disorder, in full remission, most recent episode depressed F31.76 Active 27366469 Problem Microalbuminuria R80.9 Active 232136370 Problem Osteopenia after menopause M85.80 Active 97820 4005 Problem Hyperparathyroidism E21.3 Active 62562800 Problem Hypoglycemia E16.2 Active 860294747 ALLERGIES No Known Allergies ENCOUNTERS from 1960 to 2020-05-11 Encounter Location Date Provider Diagnosis [facility] [address] [place] [address] 09 May, 2 020 Dalila Barnes Acquired hypothyroidism E03.9 IMMUNIZATIONS Vaccine Route Administration Date Status Influenza [...] Education Language: Question Answer Notes Languages spoken: Moroccan Denominational: Question Answer Notes Denominational 05 Lutheran Sexual Hx: Question Answer Notes Had sex [...] Notes Start Da te End Date Status Ziprasidone HCl 20 MG 1 capsule with food Orally Twice a day for 30 day(s) Active Mirtazapine 45 MG 1 tablet at bedtime Orally Once a day for 30 day(s) Active TraZODone HCl 50 MG 1-2 tablet at bedtime as needed Orally Once a day Active Magnesium 500 MG 1 tablet with a meal Orally Once a day Active [place] Carbonate ER 450 MG 1 tablet at bedtime Orally Once a day for 30 day(s) Active Iron 28 MG 1 tablet Orally Once a day Active Levothyroxine Sodium 25 MCG 1 tablet in the morning on an empty stomach Orally Once a day with the 200mcg tab for 90 day(s) May, Active Ergocalciferol 35206 IU 1 tablet with meal Orally once a week for 90 days Active [place] Carbonate ER 300 MG 1 tablet at bedtime Orally Once a day for 30 day(s) Active Quetiapine Fumarate 200 MG 1 tablet at bedtime Orally before bedtime Active Calcium 600-D 600-200 MG-UNIT taking total of 1200/400 Orally Once a day Active Topiramate 50 MG 1 tablet Orally Once a day for 30 days Active Norvasc 10mg 1 tab orally Daily for 90 days Active Levothyroxine Sodium 200 MCG 1 tablet in the morning o n an empty stomach Orally Once a day Active Klonopin 0.5 MG 1 tablet Orally four times a day Active Bariatric Fusion - 1 tab Orally Daily Active PROCEDURES No Information RESULTS No Results REASON FOR VISIT labs MEDICAL (GENERAL) HISTORY Type Description Date Medical [...] Uterine Ablation 2000 Surgical History colonoscopy in [place] 2017 Goals Section No Information Health Concerns No Information MEDICAL EQUIPMENT No Information MENTAL STATUS No Information FUNCTIONAL STATUS No Information ASSESSMENTS Encounter Date Diagnosis Assessment Notes Treatment Notes Treatm ent Clinical Notes May, Acquired hypothyroidism (ICD-10 - E03.9) PLAN OF TREATMENT Medication Medication Name Sig Start Date Stop Date Levothyroxine Sodium 25 MCG 1 tablet in the morning on an empty stomach Orally Once a day with the 200mcg tab for 90 day(s) May, Levothyroxine Sodium 200 MCG 1 tablet in the morning o n an empty stomach Orally Once a day Next Appt Details Provider Name:Dalila Barnes, 2020-06-08 08:3 0:00 AM, [address] [place], [address], Insurance Providers Payer Name Payer Address Payer Phone Insured Name Patient Relati onship to Insured Coverage Start Date Coverage End Date [facility] CLAIMS DEPT [address] [facility] [phone] VIPIN CHAUHAN
--- OUTSIDE RECORDS SUMMARY | 2020-07-19 14:00 | CCD ---
Author Author [facility] Organization [facility] Address Unknown Phone Unavailable Care Team Providers Care Lead Nuclear Medicine Technologist Name Role Phone Dalila Barnes Unavailable PROBLEMS Type Condition ICD9-CM Code [id number] Code Onset Dates Condition S tatus SNOMED Code Notes Problem Migraine without aura and without status migrain osus, not intractable G43.009 Active 448680582 Problem Acquired hypothyroidism E03.9 Active 21371233 2 Problem Bariatric surgery status Z98.84 Active 5747397 06 Problem Vitamin D deficiency E55.9 Active 94080983 Problem Essential hypertension I10 Active 84597118 Problem Major depressive disorder, recurrent, moderate F33 .1 Active 970926912 Problem Generalized anxiety disorder F41.1 Active 218 74265 Problem Elevated parathyroid hormone E34.9 Active 726 2008 Problem Macrocytosis D75.89 Active 669635363 Problem Ventral hernia without obstruction or gangrene K43 .9 Active 243840316 Problem Decreased appetite R63.0 Active 87825623 Problem At high risk for breast cancer Z91.89 Active 4 40353201957348 Problem Elevated LFTs R79.89 Active 917617440 Problem Bipolar disorder, in full remission, most recent episode depressed F31.76 Active 55238713 Problem Microalbuminuria R80.9 Active 610890558 Problem Osteopenia after menopause M85.80 Active 73741 4005 Problem Hyperparathyroidism E21.3 Active 37493392 Problem Hypoglycemia E16.2 Active 027360524 ALLERGIES No Known Allergies ENCOUNTERS from 1960 to 2020-05-12 Encounter Location Date Provider Diagnosis [facility] [address] [place] [address] 08 Dec, 2 020 Dalila Barnes Fatigue, unspecified type R53.83 ; Decreased appetite R63.0 ; Urinary urgency R39.15 ; Elevated LFTs R79.89 ; Acquired hypothyroidism E03.9 ; Bariatric surgery status Z98.84 and Essential hypertension I10 IMMUNIZATIONS Vaccine Route Administration Date Status Influenza [...] Education Language: Question Answer Notes Languages spoken: Persian Evangelical: Question Answer Notes Evangelical 05 Yarsani Sexual Hx: Question Answer Notes Had sex in the last 12 months (vaginal, oral, or anal)? No LMP: Ablation Have you ever had an STD? No Drug and Alcohol Question Answer Notes Total Score: 0 Interpretation: No problems reported Tobacco Use: Question Answer Notes Are you a: never smoker REASON FOR REFERRAL No Information VITAL SIGNS Weight 111 lbs May, Height 66 in May, BMI 17.91 kg/m2 May, Heart Rate 59 /min May, Respiratory Rate 18 /min May, Temperature 97.5 degrees Fahrenheit May, Oximetry 93 May, Blood pressure systolic 120 mm Hg May, Blood pressure diastolic 70 mm Hg May, MEDICATIONS Medication SIG (Take, Route, Frequency, Duration) [...] a meal Orally Once a day Active [place] Carbonate ER 450 MG 1 tablet at bedtime Orally Once a day for 30 day(s) Active Iron 28 MG 1 tablet Orally Once a day Active Levothyroxine Sodium 25 MCG 1 tablet in the morning on an empty stomach Orally Once a day with the 200mcg tab for 90 day(s) May, Active Ergocalciferol 21576 IU 1 tablet with meal Orally once a week for 90 days Active [place] Carbonate ER 300 MG 1 tablet at [...] Orally Daily Active PROCEDURES No Information RESULTS REASON FOR VISIT Urgent Care follow up uti. Was given Marobid bid for seven days. Azo three time s a day for two days , [facility] notes in [place] MEDICAL (GENERAL) HISTORY Type Description Date Medical [...] Uterine Ablation 2000 Surgical History colonoscopy in [place] 2016 Goals Section No Information Health Concerns No Information MEDICAL EQUIPMENT No Information MENTAL STATUS No Information FUNCTIONAL STATUS No Information ASSESSMENTS Encounter Date Diagnosis Assessment Notes Treatment Notes Treatm ent Clinical Notes May, Fatigue, unspecified type (ICD-10 - R53.83) check labs and f/up as indicated May, Decreased appetite (ICD-10 - R63.0) advised 6 small meals/day with BOOST supplements May, Urinary urgency (ICD-10 - R39.15) May, Elevated LFTs (ICD-10 - R79.89) May, Acquired hypothyroidism (ICD-10 - E03.9) labs today May, Bariatric surgery status (ICD-10 - Z98.84) May, Essential hypertension (ICD-10 - I10) PLAN OF TREATMENT Medication Medication Name Sig Start Date Stop Date Levothyroxine Sodium 25 MCG 1 tablet in the morning on an empty stomach Orally Once a day with the 200mcg tab for 90 day(s) May, Levothyroxine Sodium 200 MCG 1 tablet in the morning o n an empty stomach Orally Once a day Treatment Notes Assessment Notes Clinical Notes Fatigue, unspecified type check labs and f/up as indicated Decreased appetite advised 6 small meals/day with BOOST sup plements Acquired hypothyroidism labs today Next Appt Details 4 Weeks Reason:follow-up and weight chec k Provider Name:Dalila Barnes, 2020-06-08 08:3 0:00 AM, [address] [place], [address], Follow Up:4 Weeksfollow-up and weight check Insurance Providers Payer Name Payer Address Payer Phone Insured Name Patient Relati onship to Insured Coverage Start Date Coverage End Date [facility] CORPORATE CLAIMS DEPT [address] [facility] [phone] VIPIN CHAUHAN self
--- OUTSIDE RECORDS SUMMARY | 2020-07-19 14:00 | CCD ---
Author Author [facility] Organization [facility] Address Unknown Phone Unavailable Care Team Providers Care Driver Merchandiser Name Role Phone Dalila Barnes Unavailable PROBLEMS Type Condition ICD9-CM Code [id number] Code Onset Dates Condition S tatus SNOMED Code Notes Problem Migraine without aura and without status migrain osus, not intractable G43.009 Active 881376090 Problem Acquired hypothyroidism E03.9 Active 36262936 2 Problem Bariatric surgery status Z98.84 Active 9073737 06 Problem Vitamin D deficiency E55.9 Active 65227179 Problem Essential hypertension I10 Active 80977799 Problem Major depressive disorder, recurrent, moderate F33 .1 Active 607117767 Problem Generalized anxiety disorder F41.1 Active 218 80455 Problem Elevated parathyroid hormone E34.9 Active 726 2008 Problem Macrocytosis D75.89 Active 218330320 Problem Ventral hernia without obstruction or gangrene K43 .9 Active 973469340 Problem Decreased appetite R63.0 Active 22071682 Problem At high risk for breast cancer Z91.89 Active 4 70244624821733 Problem Elevated LFTs R79.89 Active 668479840 Problem Bipolar disorder, in full remission, most recent episode depressed F31.76 Active 94793528 Problem Microalbuminuria R80.9 Active 915519812 Problem Osteopenia after menopause M85.80 Active 30451 4005 Problem Hyperparathyroidism E21.3 Active 65565921 Problem Hypoglycemia E16.2 Active 901404485 ALLERGIES No Known Allergies ENCOUNTERS from 1960 to 2020-06-26 Encounter Location Date Provider Diagnosis [facility] [place] [address] [place] [address] Jun, Dalila Barnes Acquired hypothyroidism E03.9 ; Elevated parathyroid hormone E34.9 and Essential hypertension I10 IMMUNIZATIONS Vaccine Route [...] Education Language: Question Answer Notes Languages spoken: Upper Sorbian Scientology: Question Answer Notes Scientology 05 Zoroastrian Sexual Hx: Question Answer Notes Had sex in the last 12 months (vaginal, oral, or anal)? No LMP: Ablation Have you ever had an STD? No Drug and Alcohol Question Answer Notes Total Score: 0 Interpretation: No problems reported Tobacco Use: Question Answer Notes Are you a: never smoker REASON FOR REFERRAL No Information VITAL SIGNS Weight 112 lbs Jun, Height 66 in Jun, BMI 18.08 kg/m2 Jun, Heart Rate 76 /min Jun, Respiratory Rate 18 /min Jun, Temperature 98.2 degrees Fahrenheit Jun, Oximetry 100 Jun, Blood pressure systolic 100 mm Hg Jun, Blood pressure diastolic 60 mm Hg Jun, MEDICATIONS Medication SIG (Take, Route, Frequency, Duration) Notes Start Da te End Date Status Levothyroxine Sodium 200 MCG 1 tablet in the morning o n an empty stomach Orally Once a day Active [place] Carbonate ER 450 MG 1 tablet at bedtime Orally Once a day for 30 day(s) Active Quetiapine Fumarate 200 MG 1 tablet at bedtime Orally before bedtime Not-Taking Levothyroxine Sodium 75 MCG 1 tablet in the morning on an empty stomach Orally Once a day Active Levothyroxine Sodium 25 MCG 1 tablet in the morning on an empty stomach Orally Once a day with the 200mcg tab May, A ctive Ergocalciferol 30658 IU 1 tablet with meal Orally once a week for 90 days Active Calcium 600-D 600-200 MG-UNIT taking total of 1200/400 Orally Once a day Active Famotidine 40 MG 1 tablet at bedtime Orally Once a day for 30 da y(s) Jun, Active Mirtazapine 45 MG 1 tablet at bedtime Orally Once a day for 30 day(s) Active Iron 28 MG 1 tablet Orally Once a day Active Ziprasidone HCl 20 MG 1 capsule with food Orally Twice a day for 30 day(s) Not-Taking [place] Carbonate ER 300 MG 1 tablet at bedtime Orally Once a day for 30 day(s) Active Bariatric Fusion - 1 tab Orally Daily Active Klonopin 0.5 MG 1 tablet Orally four times a day Not-Taking Amlodipine Besy-Benazepril HCl 5-20 MG TAKE ONE CAPSULE BY M OUTH EVERY DAY Oral Active TraZODone HCl 100 MG 2 tablet at bedtime as needed Orally Once a day Active Topiramate 50 MG 1 tablet Orally Once a day for 30 Active PROCEDURES No Information RESULTS No Results REASON FOR VISIT follow-up labs MEDICAL (GENERAL) HISTORY Type Description Date [...] Uterine Ablation 2000 Surgical History colonoscopy in [place] 2016 Goals Section No Information Health Concerns No Information MEDICAL EQUIPMENT No Information MENTAL STATUS No Information FUNCTIONAL STATUS No Information ASSESSMENTS Encounter Date Diagnosis Assessment Notes Treatment Notes Treatm ent Clinical Notes Jun, Acquired hypothyroidism (ICD-10 - E03.9) advised to stop the 25mcg dose as 75mcg was added by Dr Souza. Endocrine consult is pending Jun, Elevated parathyroid hormone (ICD-10 - E34.9) endocrine consult pending Jun, Essential hypertension (ICD-10 - I10) BP low normal - continue to monitor for symptoms. Is scheduled for echo and f/up with Dr Souza PLAN OF TREATMENT Medication Medication Name Sig Start Date Stop Date Levothyroxine Sodium 200 MCG 1 tablet in the morning o n an empty stomach Orally Once a day Amlodipine Besy-Benazepril HCl 5-20 MG TAKE ONE CAPSULE BY M OUTH EVERY DAY Oral Levothyroxine Sodium 75 MCG 1 tablet in the morning on an empty stomach Orally Once a day Treatment Notes Assessment Notes Clinical Notes Acquired hypothyroidism advised to stop the 25mcg do se as 75mcg was added by Dr Souza. Endocrine consult is pending Elevated parathyroid hormone endocrine consult pending Essential hypertension BP low normal - continue to monitor for symptoms. Is scheduled for echo and f/up with Dr Souza Future Test Test Name Order Date Comprehensive Metabolic Profile (CMP) 20200713 FREE T4 & TSH PANEL 20200713 Next Appt Details 4 Weeks(30min) Reason:f/u after labs Provider Name:Dalila Barnes, 2020-07-27 11:3 0:00 AM, [facility] [place], [address], Follow Up:4 Weeks(30min)f/u after labs Insurance Providers Payer Name Payer Address Payer Phone Insured Name Patient Relati onship to Insured Coverage Start Date Coverage End Date [facility] CORPORATE CLAIMS DEPT [address] [facility] [phone] VIPIN CHAUHAN
--- OUTSIDE RECORDS SUMMARY | 2020-07-19 14:00 | CCD ---
Author Author [facility] Organization [facility] Address Unknown Phone Unavailable Care Team Providers Care Industrial Radiographer Name Role Phone Dalila Barnes PROBLEMS Type Condition ICD9-CM Code [id number] Code Onset Dates Condition S tatus SNOMED Code Notes Problem Migraine without aura and without status migrain osus, not intractable G43.009 Active 648645770 Problem Acquired hypothyroidism E03.9 Active 87122916 2 Problem Bariatric surgery status Z98.84 Active 9294336 06 Problem Vitamin D deficiency E55.9 Active 87178930 Problem Essential hypertension I10 Active 66818027 Problem Major depressive disorder, recurrent, moderate F33 .1 Active 218236421 Problem Generalized anxiety disorder F41.1 Active 218 31466 Problem Elevated parathyroid hormone E34.9 Active 726 2008 Problem Macrocytosis D75.89 Active 434388008 Problem Ventral hernia without obstruction or gangrene K43 .9 Active 558589656 Problem Decreased appetite R63.0 Active 62954789 Problem At high risk for breast cancer Z91.89 Active 4 06494701434914 Problem Elevated LFTs R79.89 Active 532334735 Problem Bipolar disorder, in full remission, most recent episode depressed F31.76 Active 30536947 Problem Microalbuminuria R80.9 Active 017699927 Problem Osteopenia after menopause M85.80 Active 61468 4005 Problem Hyperparathyroidism E21.3 Active 26320937 Problem Hypoglycemia E16.2 Active 797307730 ALLERGIES No Known Allergies ENCOUNTERS from 1960 to 2020-06-09 Encounter Location Date Provider Diagnosis [facility] [address] [place] [address] 06 Jun, 2 021 Dalila Barnes Acquired hypothyroidism E03.9 ; Nausea R11.0 ; Essential hypertension I10 and Vitamin D deficiency E55.9 IMMUNIZATIONS Vaccine Route Administration Date Status Influenza [...] Education Language: Question Answer Notes Languages spoken: Romansh Baptism: Question Answer Notes Baptism 05 Protestant Sexual Hx: Question Answer Notes Had sex [...] Once a day for 30 day(s) Active [place]ola Carbonate ER 450 MG 1 tablet at [...] day for 30 da y(s) Jun, Active Dola Carbonate ER 300 MG 1 tablet at bedtime Orally Once a day for 30 day(s) Active TraZODone HCl 100 MG 2 tablet at bedtime as needed Orally Once a day Active Ergocalciferol 52270 IU 1 tablet with meal Orally once a week for 90 days Active PROCEDURES No Information RESULTS No Results REASON FOR VISIT all medications MEDICAL (GENERAL) HISTORY Type Description Date Medical [...] Uterine Ablation 2000 Surgical History colonoscopy in [place] 2016 Goals Section No Information Health Concerns No Information MEDICAL EQUIPMENT No Information MENTAL STATUS No Information FUNCTIONAL STATUS No Information ASSESSMENTS Encounter Date Diagnosis Assessment Notes Treatment Notes Treatm ent Clinical Notes Jun, Acquired hypothyroidism (ICD-10 - E03.9) Jun, Nausea (ICD-10 - R11.0) Jun, Essential hypertension (ICD-10 - I10) Jun, Vitamin D deficiency (ICD-10 - E55.9) PLAN OF TREATMENT Medication Medication Name Sig Start Date Stop Date Levothyroxine Sodium 200 MCG 1 tablet in the morning o n an empty stomach Orally Once a day for 30 days Famotidine 40 MG 1 tablet at bedtime Orally Once a day fo r 30 day(s) Jun, Norvasc 10mg 1 tab orally Daily for 30 days Ergocalciferol 63840 IU 1 tablet with meal Orally once a week fo r 90 days Levothyroxine Sodium 25 MCG 1 tablet in the morning on an empty stomach Orally Once a day with the 200mcg tab for 30 days May, Insurance Providers Payer Name Payer Address Payer Phone Insured Name Patient Relati onship to Insured Coverage Start Date Coverage End Date [facility] [employer] DE[employer] [address] [facility] [phone] VIPIN CHAUHAN
--- OUTSIDE RECORDS SUMMARY | 2020-07-19 14:00 | CCD | Continuity of Care Document ---
Author Author Patricia AMADO MD Organization Unknown Address [email or web address], [place] [address] Phone [phone] Care Team Providers Care Research Chemist Name Role Phone Dalila Barnes RJ AUTM [phone] Talia Locke MD AUTM Problems Active Problems Provider Date Heart murmur Ike Amado MD Onset: 06/09/2020 Dietary management surveillance Ike Amado MD Onset: 06/09/2020 Electrocardiogram abnormal Ike Amado MD Onset: 06/09 Dizziness and giddiness Ike Amado MD Onset: 06/09/19 Sinus bradycardia Ike Amado MD Onset: 06/09/2020 Essential hypertension Ike Amado MD Onset: Social History Type Date Description Comments Sex Unknown ETOH Use Rarely consumes alcohol Tobacco Use Start: Unknown Patient has never smoked Smoking Status Reviewed: 06/09/20 Patient has never smoked Exercise Type/Frequency Walks daily couple t imes daily with dogs Exercise Limitations Fatigue Allergies, Adverse Reactions, Alerts Description No Known Drug Allergies Medications Active Medications SIG Qnty Indications Ordering Provide r Date Amlodipine Besylate 5mg Tablets 1 by mouth every day 30tabs I10 Ike Amado MD 06/09/2020 Levo-T 75mcg Tablets 1 tab by mouth every day 30tabs E03.9 Ike Amado MD 06/09/2020 Aripiprazole 2mg Tablets 1 by mouth every day Unknown 06/08/2020 Potassium Chloride ER 10Meq Capsul es ER 1 by mouth every day Unknown 06/08/2020 Seroquel 50mg Tablets 1 by mouth once a day Unknown 06/08/2020 Seroquel 200mg Tablets 1 b y mouth daily Unknown 06/08/2020 Centrum Silver 50+Women 50+Women T ablets one by mouth daily Unknown 06/08/2020 Aquadeks Chewtabs once daily Unknown 06/08/2020 Levothyroxine Sodium 200mcg Tablet s 1 by mouth every day Unknown 06/08/2020 Calcium 600+D [id number] Table ts 2 by mouth every day Unknown 06/08/2020 Vitamin D3 1.25mg (92384 Ut) Table ts 1 by mouth once a week Unknown 06/08/2020 Topiramate 50mg Tablets 1 by mouth once daily Unknown 06/08/2020 Magnesium 500mg Tablets 1 by mouth every day Unknown 06/08/2020 Mirtazapine 30mg Tablets 1.5 by mouth daily Unknown 06/08/2020 Ackerly Carbonate ER 450mg Tablets ER One by mouth daily Unknown 06/08/2020 Ackerly Carbonate ER 300mg Tablets ER 1 by mouth every day Unknown 06/08/2020 History Medications Levo-T 25mcg Tablets 1 tab by mouth every day E03.9 Ike Amado MD 06/09/2020 - 06/09/2020 Norvasc 10mg Tablets 1 by mouth every day I10 Unknown 06/08/2020 - [address] [place] [address] C[address] DR one by mouth daily Unknown 06/08/2020 - 12/2020 Immunizations Description No Information Available Vital Signs Date Vital Result Comment 06/09/2020 8:53am Weight 108.00 lb Home Weight 110lb home weight Height 66 inches 5'6" BMI (Body Mass Index) 17.4 kg/m2 Heart Rate 48 /min BP Systolic Sitting 106 mmHg Omron, adult cuff/Ra ; HR: 48 bpm BP Diastolic Sitting 59 mmHg Omron, adult cuff/R a; HR: 48 bpm BP Systolic Lying Down 112 mmHg Omron, adult cuff /Ra; HR: 47 bpm BP Diastolic Lying Down 60 mmHg Omron, adult cuf f/Ra; HR: 47 bpm BP Systolic Standing 117 mmHg Omron, adult cuff/R a; HR: 54 bpm BP Diastolic Standing 64 mmHg Omron, adult cuff/ Ra; HR: 54 bpm Results Test Acquired Date Facility Test Result H/L Range Note Laboratory test finding 06/09/2020 [facility] [phone] Thyroid Stimulating Hormone 30.700 uIU/ML High 0 .358-3.740 CBC without Differential 05/10/2020 [facility] ([facility] - White Blood Count 6.7 4.3-10.9 Red Blood Count 3.63 Low 4.70-6.20 Platelets 215 130-400 Hemoglobin 12.1 Low 13.0-17.0 Hematocrit 37.9 Low 39.0-50.0 CMP 05/10/2020 [facility] ([facility])- - Albumin Serum/Plasma 4.0 Alt - SGPT 79 Calcium Ser/Plasma Mass/Vol 9.2 Carbon Dioxide Ser/Plasm 25 Chloride Serum/Plasma 111 Alkaline Phosphatase 149 Potassium 4.5 Protein Total 6.6 Sodium 140 Ast - Sgot 58 BUN - Urea Nitrogen 14 Glucose 84 70-100 Creatinine For GFR 0.88 Laboratory test finding 05/10/2020 [facility] ([facility])- - Magnesium Level 2.9 Free T4 0.75 Thyroid Stimulating Hormone 23.200 Vitamin B12 & Folate 05/10/2020 [facility] ([facility])- - B12 1507 Folate 17.4 Laboratory test finding 05/10/2020 [facility] ([facility])- - Ferritin 131 22.0-322.0 Procedures Date Code Description Status 06/09/2020 49175 ECG 12-Lead Completed Medical Devices Description No Information Available Encounters Type Date Location Provider Dx Diagnosis Office Visit 06/09/2020 8:45a Main Office Ike Amado MD R00.1 Bradycardia, unspecified I10 Essential (primary) hyperten rashaad R01.1 Cardiac murmur, unspecified R42 Dizziness and giddiness R94.31 Abnormal electrocardiogram [ ECG] [EKG] Z71.3 Dietary counseling and surve illance Assessments Date Code Description Provider 06/09/2020 R00.1 Bradycardia, unspecified Ike Amado MD 06/09/2020 I10 Essential (primary) hypertension Ike Amado MD 06/09/2020 R01.1 Cardiac murmur, unspecified Terry matty Amado MD 06/09/2020 R42 Dizziness and giddiness Ike Amado MD 06/09/2020 R94.31 Abnormal electrocardiogram [ECG] [EKG] Ike Amado MD 06/09/2020 Z71.3 Dietary counseling and surveilla nce Ike Amado MD Plan of Treatment Future Appointment(s):* 07/29/2020 9:15 am - Ike Amado MD at Main Office * 07/20/2020 2:45 pm - Holter/Event/Telemetry at Main Office * 07/13/2020 9:00 am - ECHO at Main Office 06/09/2020 - Ike Amado MD* R00.1 Bradycardia, unspecified* New Orders:* Holter Monitor, Scheduled: 07/20/20 * Recommendations:* TSH was ordered. Further evaluation with a Holter monitor. It is my recommendation that this patient's psychiatrist give consideration to using less Seroquel or finding an alternative medication that does not have bradycardia as a side effect; the final decision with regards to Seroquel will remain with this patient's psychiatrist; this was explained to the patient. * I10 Essential (primary) hypertension* New Medication:* Amlodipine Besylate 5 mg - 1 by mouth every day * Recommendations:* Amlodipine was decreased to 5 mg daily. It is my recommendation that this patient's psychiatrist give consideration to using lower doses or alternative medications that do not cause orthostatic hypotension with regards to mirtazapine, Seroquel, aripiprazole. The final decision with regards to adjustment of these medications will be at the discretion of the patient's psychiatrist; this was explained to the patient. * R01.1 Cardiac murmur, unspecified* New Xrays:* US Echocardiogram Transthoracic W Doppler And Color Flow, Scheduled: 07/13/20 * Recommendations:* Echocardiogram-Doppler was ordered * R42 Dizziness and giddiness * R94.31 Abnormal electrocardiogram [ECG] [EKG] * Z71.3 Dietary counseling and surveillance* Recommendations:* Fish oil (omega- 3) was discontinued. FYI: Fish oil is associated with increased cardiovascular mortality and increased risk of cancer (fish oil contaminated by PCB 180 which is a known carcinogen). WHOLE-FOOD, PLANT-BASED DIET - Include fruits, vegetables, intact whole grains, beans & legumes; especially green leafy vegetables, cruciferous vegetables (e.g., broccoli, kale, cauliflower, brussel sprouts, cabbage), turmeric, ground flaxseeds - Avoid animal products (meat, poultry, fish, dairy products, eggs) - Avoid processed foods (added sugar, high fructose corn syrup, oil, salt) - No liquid oils, margarine, shortening, butter, lard, mayonnaise. - No trans-fats (partially hydrogenated oils). - No alcohol - No artificial sweeteners - B12 supplement if completely vegan and not on adequate amounts of B12 fortified foods - Non-GMO preferred - Avoid artificial food colors - No fish oil LOW SODIUM - Target total daily sodium 5515-0909 mg /d [do not go below 2300 mg/d] - No added salt. - Rule of thumb : Strive for sodium/calorie ratio less than or equal to 1.0 EXERCISE ADVICE (General exercise advice; depends on health conditions) Cardio: Walking or equivalent aerobic activity for 40-60 minutes at least 5 times a week and preferably everyday. Front planks 3 daily (30 seconds each) Resistance training 20-30 minutes, at least 2-3 times per week * All * Follow up:* Clinic visit in [address] Amado. Functional Status Functional Condition Comment Date Status Independent with all ADL's Activ e Mental Status Description No Information Available Referrals Description No Information Available
--- OUTSIDE RECORDS SUMMARY | 2020-07-19 14:00 | CCD ---
Author Author [facility] Organization [facility] Address Unknown Phone Unavailable Care Team Providers Care Jive Developer Name Role Phone Cameron Dalila Santoyo PROBLEMS Type Condition ICD9-CM Code [id number] Code Onset Dates Condition S tatus SNOMED Code Notes Problem Migraine without aura and without status migrain osus, not intractable G43.009 Active 473004528 Problem Acquired hypothyroidism E03.9 Active 35525633 2 Problem Bariatric surgery status Z98.84 Active 3559930 06 Problem Vitamin D deficiency E55.9 Active 58399318 Problem Essential hypertension I10 Active 59481579 Problem Major depressive disorder, recurrent, moderate F33 .1 Active 910309099 Problem Generalized anxiety disorder F41.1 Active 218 34441 Problem Elevated parathyroid hormone E34.9 Active 726 2008 Problem Macrocytosis D75.89 Active 821154965 Problem Ventral hernia without obstruction or gangrene K43 .9 Active 787339059 Problem Decreased appetite R63.0 Active 12640434 Problem At high risk for breast cancer Z91.89 Active 4 01220905906420 Problem Elevated LFTs R79.89 Active 785539994 Problem Bipolar disorder, in full remission, most recent episode depressed F31.76 Active 06352571 Problem Microalbuminuria R80.9 Active 783527623 Problem Osteopenia after menopause M85.80 Active 15930 4005 Problem Hyperparathyroidism E21.3 Active 58722247 Problem Hypoglycemia E16.2 Active 725468914 ALLERGIES No Known Allergies ENCOUNTERS from 1960 to 2020-06-11 Encounter Location Date Provider Diagnosis [facility] [address] [place] [address] Jun, 2 021 Dalila Barnes Bradycardia R00.1 ; Fatigue, unspecified type R53.83 ; Dysuria R30.0 ; Proteinuria, unspecified type R80.9 ; Acquired hypothyroidism E03.9 and Nausea R11.0 IMMUNIZATIONS Vaccine Route Administration Date Status Influenza [...] Education Language: Question Answer Notes Languages spoken: Turkish Holiness: Question Answer Notes Holiness 05 Tenriism Sexual Hx: Question Answer Notes Had sex in the last 12 months (vaginal, oral, or anal)? No LMP: Ablation Have you ever had an STD? No Drug and Alcohol Question Answer Notes Total Score: 0 Interpretation: No problems reported Tobacco Use: Question Answer Notes Are you a: never smoker REASON FOR REFERRAL No Information VITAL SIGNS Weight 110 lbs Jun, Height 66 in Jun, BMI 17.75 kg/m2 Jun, Heart Rate 50 /min Jun, Respiratory Rate 18 /min Jun, Temperature 97.8 degrees Fahrenheit Jun, Oximetry 99 Jun, Blood pressure systolic 110 mm Hg Jun, Blood pressure diastolic 70 mm Hg Jun, MEDICATIONS Medication SIG (Take, [...] Once a day for 30 day(s) Active [employer] Carbonate ER 450 MG 1 tablet at [...] day for 30 da y(s) Jun, Active [employer] Carbonate ER 300 MG 1 tablet at bedtime Orally Once a day for 30 day(s) Active TraZODone HCl 100 MG 2 tablet at bedtime as needed Orally Once a day Active Ergocalciferol 29394 IU 1 tablet with meal Orally once a week for 90 days Active PROCEDURES No Information RESULTS REASON FOR VISIT : 4 Weeks (Reason: follow-up and weight check), EKG done, Urine dip done MEDICAL (GENERAL) HISTORY Type Description Date Medical [...] Uterine Ablation 2000 Surgical History colonoscopy in [place] 2016 Goals Section No Information Health Concerns No Information MEDICAL EQUIPMENT No Information MENTAL STATUS No Information FUNCTIONAL STATUS No Information ASSESSMENTS Encounter Date Diagnosis Assessment Notes Treatment Notes Treatm ent Clinical Notes Jun, Bradycardia (ICD-10 - R00.1) case reviewed with dr English - echo re-check labs today Jun, Fatigue, unspecified type (ICD-10 - R53.83) check labs and f/up as indicated Jun, Dysuria (ICD-10 - R30.0) Jun, Proteinuria, unspecified type (ICD-10 - R80.9) Jun, Acquired hypothyroidism (ICD-10 - E03.9) Jun, Nausea (ICD-10 - R11.0) advised on administration and side effects of medication prescribed and pt verbalized understanding. started famotidine for reflux symptoms at night, stop magnsesium due to elevated serum magnesium level PLAN OF TREATMENT Medication Medication Name Sig Start Date Stop Date Levothyroxine Sodium 200 MCG 1 tablet in the morning o n an empty stomach Orally Once a day for 30 days Famotidine 40 MG 1 tablet at bedtime Orally Once a day fo r 30 day(s) Jun, Norvasc 10mg 1 tab orally Daily for 30 days Ergocalciferol 90925 IU 1 tablet with meal Orally once a week fo r 90 days Levothyroxine Sodium 25 MCG 1 tablet in the morning on an empty stomach Orally Once a day with the 200mcg tab for 30 days May, Treatment Notes Assessment Notes Clinical Notes Bradycardia case reviewed with matty English - will re-check labs today Fatigue, unspecified type check labs and f/up as indicated Nausea advised on administration an d side effects of medication prescribed and pt verbalized understanding. started famotidine for reflux symptoms at night, stop magnsesium due to elevated serum magnesium level Treatment Notes Test Name Order Date CREATININE,RANDOM URINE 2020-06-11 Next Appt Details 4 Weeks (30min) Reason:f/u after labs Follow Up:4 Weeks (30min)f/u after labs Insurance Providers Payer Name Payer Address Payer Phone Insured Name Patient Relati onship to Insured Coverage Start Date Coverage End Date [facility] DEPT [address] [facility] [phone] VIPIN CHAUHAN
--- OUTSIDE RECORDS SUMMARY | 2020-07-19 14:00 | CCD ---
Author Author [facility] Organization [facility] Address Unknown Phone Unavailable Care Team Providers Care Seed Laboratory Technician Name Role Phone Dalila Barnes PROBLEMS Type Condition ICD9-CM Code [id number] Code Onset Dates Condition S tatus SNOMED Code Notes Problem Migraine without aura and without status migrain osus, not intractable G43.009 Active 046088526 Problem Acquired hypothyroidism E03.9 Active 13477815 2 Problem Bariatric surgery status Z98.84 Active 1684122 06 Problem Vitamin D deficiency E55.9 Active 34486223 Problem Essential hypertension I10 Active 63435572 Problem Major depressive disorder, recurrent, moderate F33 .1 Active 585642359 Problem Generalized anxiety disorder F41.1 Active 218 46028 Problem Elevated parathyroid hormone E34.9 Active 726 2008 Problem Macrocytosis D75.89 Active 495395984 Problem Ventral hernia without obstruction or gangrene K43 .9 Active 089407682 Problem Decreased appetite R63.0 Active 65612632 Problem At high risk for breast cancer Z91.89 Active 4 99277432712933 Problem Elevated LFTs R79.89 Active 751448753 Problem Bipolar disorder, in full remission, most recent episode depressed F31.76 Active 51770483 Problem Microalbuminuria R80.9 Active 615480230 Problem Osteopenia after menopause M85.80 Active 31987 4005 Problem Hyperparathyroidism E21.3 Active 81555409 Problem Hypoglycemia E16.2 Active 376033482 ALLERGIES No Known Allergies ENCOUNTERS from 1960 to 2020-06-14 Encounter Location Date Provider Diagnosis [facility] [address] [place] [address] Jun, 2 021 Dalila Barnes Acquired hypothyroidism E03.9 and Elevated parathyroid hormone E34.9 IMMUNIZATIONS Vaccine Route Administration Date Status Influenza [...] Education Language: Question Answer Notes Languages spoken: Nepali Holiness: Question Answer Notes Holiness 05 Alevism Sexual Hx: Question Answer Notes Had sex [...] Once a day for 30 day(s) Active [employer] Carbonate ER 450 MG 1 tablet at [...] day for 30 da y(s) Jun, Active [employer] Carbonate ER 300 MG 1 tablet at bedtime Orally Once a day for 30 day(s) Active TraZODone HCl 100 MG 2 tablet at bedtime as needed Orally Once a day Active Ergocalciferol 58910 IU 1 tablet with meal Orally once a week for 90 days Active PROCEDURES No Information RESULTS No Results REASON FOR VISIT lab results MEDICAL (GENERAL) HISTORY Type Description Date Medical [...] Uterine Ablation 2000 Surgical History colonoscopy in [place] 2016 Goals Section No Information Health Concerns No Information MEDICAL EQUIPMENT No Information MENTAL STATUS No Information FUNCTIONAL STATUS No Information ASSESSMENTS Encounter Date Diagnosis Assessment Notes Treatment Notes Treatm ent Clinical Notes Jun, Acquired hypothyroidism (ICD-10 - E03.9) Jun, Elevated parathyroid hormone (ICD-10 - E34.9) PLAN OF TREATMENT Medication Medication Name Sig Start Date Stop Date Levothyroxine Sodium 200 MCG 1 tablet in the morning o n an empty stomach Orally Once a day for 30 days Famotidine 40 MG 1 tablet at bedtime Orally Once a day fo r 30 day(s) Jun, Norvasc 10mg 1 tab orally Daily for 30 days Ergocalciferol 48497 IU 1 tablet with meal Orally once a week fo r 90 days Levothyroxine Sodium 25 MCG 1 tablet in the morning on an empty stomach Orally Once a day with the 200mcg tab for 30 days May, Insurance Providers Payer Name Payer Address Payer Phone Insured Name Patient Relati onship to Insured Coverage Start Date Coverage End Date [facility] [employer] DEPT [address] [place] [phone] VIPIN CHAUHAN
--- OUTSIDE RECORDS SUMMARY | 2020-07-19 14:01 | CCD ---
Author Author [facility] Organization [facility] Address Unknown Phone Unavailable Care Team Providers Care Piledriver Carpenter Name Role Phone Anika AMADO MD Unavailable Unavailable ANTECOL, Anika EVANS MD Unavailable Unavailable ANTECOL, Anika EVANS MD Unavailable Unavailable ANTECOL, Anika EVANS MD Unavailable Unavailable ANTECOL, Anika EVANS MD Unavailable Unavailable ANTECOL, Anika EVANS MD Unavailable Unavailable ANTECOL, Anika EVANS MD Unavailable Unavailable ANTECOLAnika MD Unavailable Unavailable ANTECOLAnika MD Unavailable Unavailable ANTECOLAnika MD Unavailable Unavailable ANTECOLAnika MD Unavailable Unavailable ANTECOLAnika MD Unavailable Unavailable ANTECOLAnika MD Unavailable Unavailable ANTECOLAnika MD Unavailable Unavailable ANTECOLAnika MD Unavailable Unavailable ANTECOLAnika MD Unavailable Unavailable ANTECOLAnika MD Unavailable Unavailable ANTECOLAnika MD Unavailable Unavailable ANTECOLAnika MD Unavailable Unavailable ANTECOLAnika MD Unavailable Unavailable ANTECOLAnika MD Unavailable Unavailable ANTECOLAnika MD Unavailable Unavailable ANTECOLAnika MD Unavailable Unavailable ANTECOLAnika MD Unavailable Unavailable ANTECOLAnika MD Unavailable Unavailable ANTECOLAnika MD Unavailable Unavailable ANTECOLAnika MD Unavailable Unavailable ANTECOLAnika MD Unavailable Unavailable ANTECOLAnika MD Unavailable Unavailable ANTECOLAnika MD Unavailable Unavailable ANTECOLAnika MD Unavailable Unavailable ANTECOL, Anika EVANS MD Unavailable Unavailable ANTECOL, Anika EVANS MD Unavailable Unavailable ANTECOL, Anika EVANS MD Unavailable Unavailable ANTECOL, Anika EVANS MD Unavailable Unavailable ANTECOL, Anika EVANS MD Unavailable Unavailable ANTECOL, Anika EVANS MD Unavailable Unavailable ANTECOL, Anika EVANS MD Unavailable Unavailable ANTECOL, Anika EVANS MD Unavailable Unavailable ANTECOL, Anika EVANS MD Unavailable Unavailable ANTECOL, Anika EVANS MD Unavailable Unavailable ANTECOL, Anika EVANS MD Unavailable Unavailable ANTECOL, Anika EVANS MD Unavailable Unavailable ANTECOL, Anika EVANS MD Unavailable Unavailable ANTECOL, Anika EVANS MD Unavailable Unavailable ANTECOL, Anika EVANS MD Unavailable Unavailable ANTECOL, Anika EVANS MD Unavailable Unavailable ANTECOL, Anika EVANS MD Unavailable Unavailable ANTECOL, Anika NATHAN SAUCEDO Unavailable Unavailable ANTECOL, Anika EVANS MD Unavailable Unavailable ANTECOL, Anika EVANS MD Unavailable Unavailable ANTECOL, Anika EVANS MD Unavailable Unavailable ANTECOL, Anika EVANS MD Unavailable Unavailable ANTECOL, Anika EVANS MD Unavailable Unavailable ANTECOL, Anika EVANS MD Unavailable Unavailable Re-disclosure Warning The records that you are about to access may contain information from federally-assisted alcohol or drug abuse programs. If such information is present, then the following federally mandated warning applies: This information has been disclosed to you from records protected by federal confidentiality rules (42 CFR part 2). The federal rules prohibit you from making any further disclosure of this information unless further disclosure is expressly permitted by the written consent of the person to whom it pertains or as otherwise permitted by 42 CFR part 2. A general authorization for the release of medical or other information is NOT sufficient for this purpose. The Federal rules restrict any use of the information to criminally investigate or prosecute any alcohol or drug abuse patient.The records that you are about to access may contain highly sensitive health information, the redisclosure of which is protected by Article 27-F of the [facility] Public Health law. If you continue you may have access to information: Regarding HIV / AIDS; Provided by facilities licensed or operated by the [facility] Office of Mental Health; or Provided by the [facility] Office for People With Developmental Disabilities. If such information is present, then the following [facility] mandated warning applies: This information has been disclosed to you from confidential records which are protected by state law. State law prohibits you from making any further disclosure of this information without the specific written consent of the person to whom it pertains, or as otherwise permitted by law. Any unauthorized further disclosure in violation of state law may result in a fine or senior living sentence or both. A general authorization for the release of medical or other information is NOT sufficient authorization for further disc losure. Encounters Encounter Providers Location Date Indications Data Source(s ) [place] [address] [facility] [address] 07/15/2020 12:00:00 AM EST eCW1 [facility] [place] [address] [facility] [place] [address] 06/22/2020 12:00:00 AM EST eCW1 ([facility]) Office Visit Attender: NATHAN AMADO MD Main Office 06/09/2020 07: 45:00 AM EST MEDENT ([facility]) Unknown [address] [facility] [address] 06/09/2020 12:00:00 AM EST eCW1 ([facility]) Outpatient [address] [facility] [place] [address] 06/08/2020 12:00:00 AM EST eCW1 ([facility]) Unknown [address] [facility] [address] 06/08/2020 12:00:00 AM EST eCW1 ([facility]) [place] [address] [facility] [address] 06/08/2020 12:00:00 AM EST eCW1 ([facility]) Unknown [address] [facility] [address] 05/11/2020 12:00:00 AM EST [facility]CW1 [facility] [place] [address] [facility] [address] 05/10/2020 12:00:00 AM EST eCW1 ([facility]) [place]patient [address] [facility] [address] 03/16/2020 12:00:00 AM EDT eCW1 ([facility]) Unknown [address] [facility] [place] [address] 03/15/2020 12:00:00 AM EDT [facility]CW1 [facility] [address] [place] [address], [place] [address] 02/04/2020 12:00:00 AM EDT eCW1 ([facility]) Unknown [address] [place] [address], [place] [address] 12/17/2019 12:00:00 AM EDT eCW1 ([facility]) Outpatient [address] [place] [address] [place] [address] 12/15/2019 12:00:00 AM EDT eCW1 ([facility]) [address] [place] [address] 11/01/2019 12:00:00 AM EDT eCW1 ([facility]) Outpatient [address] [place] [address] Y [address] 10/30/2019 12:00:00 AM EDT eCW1 ([facility]) [address] [place] [address] 10/07/2019 12:00:00 AM EDT eCW1 ([facility]) [address] [address] 09/15/2019 12:00:00 AM EDT eCW1 ([facility]) Outpatient 09/10/2019 04:34:00 AM EDT [facility] [address] [place] [address] 09/08/2019 12:00:00 AM EDT eCW1 ([facility]) [address] [place] [address] 09/07/2019 12:00:00 AM EDT eCW1 ([facility]) [address] [address] 09/01/2019 12:00:00 AM EDT eCW1 ([facility]) [address] [address] 08/28/2019 12:00:00 AM EDT eCW1 ([facility]) [address] [address] 08/17/2019 12:00:00 AM EDT eCW1 ([facility]) [facility] [address] [place] [address] 08/14/2019 12:00:00 AM EDT eCW1 ([facility]) [facility] [address] [place] [address] [place] [address] 08/10/2019 12:00:00 AM EDT eCW1 ([facility]) [address] [place] [address] 08/04/2019 12:00:00 AM EST eCW1 ([facility]) [address] [place] [address] 08/03/2019 12:00:00 AM EST eCW1 ([facility]) [address] [address] 08/03/2019 12:00:00 AM EST eCW1 ([facility]) [address] [place] [address] 08/03/2019 12:00:00 AM EST eCW1 ([facility]) [address] [place] [address] 07/24/2019 12:00:00 AM EST eCW1 ([facility]) [address] [place] [address] 07/23/2019 12:00:00 AM EST eCW1 ([facility]) [address] [address] 07/23/2019 12:00:00 AM EST eCW1 ([facility]) Outpatient 07/13/2019 03:44:00 PM EST [facility] [address] [place] [address] 07/10/2019 12:00:00 AM EST eCW1 ([facility] [place]) [facility] [address] [address] 07/09/2019 12:00:00 AM EST eCW1 ([facility] [place]) [facility] [address] [place] [address], [place] [address] 07/07/2019 12:00:00 AM EST eCW1 ([facility] [place]) [facility] [address] [address] 06/25/2019 12:00:00 AM EST eCW1 ([facility] [place]) [address] [address] 06/11/2019 12:00:00 AM EST eCW1 [facility]) [facility] [address] [place] [address], [place] [address] 06/09/2019 12:00:00 AM EST eCW1 ([facility]) [facility] [address] [place] [address], [place] [address] 06/05/2019 12:00:00 AM EST eCW1 [facility]) [address] [address] 05/26/2019 12:00:00 AM EST eCW1 [facility]) Immunizations Vaccine Date Status Description Data Source(s) influenza, recombinant, quadrIvalent,injectable, prese rvative free 03/16/2020 10:27:00 AM EDT completed eCW1 ([facility]) influenza, recombinant, quadrIvalent,injectable, prese rvative free 03/16/2020 10:27:00 AM EDT completed eCW1 ([facility]) influenza, recombinant, quadrIvalent,injectable, prese rvative free 03/16/2020 10:27:00 AM EDT completed eCW1 ([facility]) influenza, recombinant, quadrIvalent,injectable, prese rvative free 03/16/2020 10:27:00 AM EDT completed eCW1 ([facility]) influenza, recombinant, quadrIvalent,injectable, prese rvative free 03/16/2020 10:27:00 AM EDT completed eCW1 ([facility]) influenza, recombinant, quadrIvalent,injectable, prese rvative free 03/16/2020 10:27:00 AM EDT completed eCW1 ([facility]) influenza, recombinant, quadrIvalent,injectable, prese rvative free 03/16/2020 10:27:00 AM EDT completed eCW1 ([facility]) influenza, recombinant, quadrIvalent,injectable, prese rvative free 03/16/2020 10:27:00 AM EDT completed eCW1 ([facility]) influenza, recombinant, quadrIvalent,injectable, prese rvative free 03/16/2020 10:27:00 AM EDT completed eCW1 ([facility]) Medications Medication Brand Name Start Date Product Form Dose Route Admi nistrative Instructions Pharmacy Instructions Status Indications Reaction Description Data Source(s) topiramate 25 MG Oral Tablet Topiramate 25 MG Topiramate 25 MG 07/15/2020 12:00:00 AM EST 1.0 {tablet} active To piramate 25 MG eCW1 ([facility]) Clotrimazole 10 MG Oral Lozenge Clotrimazole 10 MG 07/15/2020 12:00 :00 AM EST 1.0 {los} active Clotrimazole 10 MG eCW1 ([facility]) Levothyroxine Sodium 0.025 MG Oral Tablet Levothyroxin e Sodium 25 MCG Levothyroxine Sodium 25 MCG 07/15/2020 12:00:00 AM EST active Levothyroxine Sodium 25 MCG eCW1 ([facility]) Ondansetron 4 MG Oral Tablet Ondansetron HCl 4 MG Ondansetro n HCl 4 MG 07/15/2020 12:00:00 AM EST 1.0 {tablet} active Ondansetron HCl 4 MG eCW1 ([facility]) Levothyroxine Sodium 0.075 MG Oral Tablet [Levo-T] Levo-T 06/09/2020 12:00:00 AM EST ORAL active [facility] ([facility] Levothyroxine Sodium 0.025 MG Oral Tablet [Levo-T] Levo-T 06/09/2020 12:00:00 AM EST ORAL completed [facility] ([facility]) Amlodipine 5 MG Oral Tablet Amlodipine Besylate 06/09/2020 12:00:00 A M EST ORAL active [facility] ([facility]) Potassium Chloride 10 MEQ Extended Release Oral Capsule Pota ssium Chloride ER 06/08/2020 12:00:00 AM EST ORAL active [facility] ([facility]) Magnesium 06/08/2020 12:00:00 AM EST ORAL active [facility] ([facility]) quetiapine 200 MG Oral Tablet [Seroquel] Seroquel 06/08/2020 12 :00:00 AM EST ORAL active [facility] ([facility]) quetiapine 50 MG Oral Tablet [Seroquel] Seroquel 06/08/2020 12:00:0 0 AM EST ORAL active [facility] ([facility]) [place] Carbonate 450 MG Extended Release Oral Tablet Lithiu m Carbonate ER 06/08/2020 12:00:00 AM EST ORAL active [facility] ([facility]) Ascorbic Acid 60 MG / Beta Carotene 5000 UNT / Copper Sulfate 40 MG / dl-alpha tocopheryl acetate 30 UNT / Sodium Selenite 0.04 MG / Zinc Oxide 40 MG Oral Tablet Centrum Silver 50+Women 06/08/2020 12:00:00 AM EST ORAL active MEDENT ([facility] [place] Carbonate 300 MG Extended Release Oral Tablet Lithiu m Carbonate ER 06/08/2020 12:00:00 AM EST ORAL active MEDENT ([facility]) Triple [place] Complex 06/08/2020 12:00:00 AM EST ORAL completed [facility] ([facility]) Famotidine 40 MG Oral Tablet Famotidine 40 MG 06/08/2020 12:00:00 A M EST 1.0 {tablet_at_bedtime} active Famotidine 4 0 MG eCW1 ([facility]) Mirtazapine 30 MG Oral Tablet Mirtazapine 06/08/2020 12:00:00 AM EST ORAL active MEDENT ([facility]) Aquadeks 06/08/2020 12:00:00 AM EST active MED[facility] ([facility]) topiramate 50 MG Oral Tablet Topiramate 06/08/2020 12:00:00 AM EST ORAL active [facility] ([facility]) Amlodipine 10 MG Oral Tablet [Norvasc] Norvasc 06/08/2020 12:00:00 AM EST ORAL completed [facility] ([facility] Cholecalciferol 52990 UNT Oral Capsule Vitamin D3 06/08/2020 12:0 0:00 AM EST ORAL active [facility] ([facility]) aripiprazole 2 MG Oral Tablet Aripiprazole 06/08/2020 12:00:00 AM EST ORAL active [facility] ([facility]) Calcium Carbonate 1500 MG / Cholecalciferol 200 UNT Oral Tab let Calcium 600+D 06/08/2020 12:00:00 AM EST ORAL active MED[facility] ([facility]) Famotidine 40 MG Oral Tablet Famotidine 40 MG 06/08/2020 12:00:00 A M EST 1.0 {tablet_at_bedtime} active Famotidine 4 0 MG eCW1 ([facility]) Famotidine 40 MG Oral Tablet Famotidine 40 MG 06/08/2020 12:00:00 A M EST 1.0 {tablet_at_bedtime} active Famotidine 4 0 MG eCW1 ([facility]) Famotidine 40 MG Oral Tablet Famotidine 40 MG 06/08/2020 12:00:00 A M EST 1.0 {tablet_at_bedtime} active Famotidine 4 0 MG eCW1 ([facility]) Levothyroxine Sodium 0.2 MG Oral Tablet Levothyroxine Sodium 06/08/2020 12:00:00 AM EST ORAL active [facility] ([facility]) Famotidine 40 MG Oral Tablet Famotidine 40 MG 06/08/2020 12:00:00 A M EST 1.0 {tablet_at_bedtime} active Famotidine 4 0 MG eCW1 ([facility]) Famotidine 40 MG Oral Tablet Famotidine 40 MG 06/08/2020 12:00:00 A M EST 1.0 {tablet_at_bedtime} active Famotidine 4 0 MG eCW1 ([facility]) Levothyroxine Sodium 0.025 MG Oral Tablet Levothyroxin e Sodium 25 MCG Levothyroxine Sodium 25 MCG 05/11/2020 12:00:00 AM EST active Levothyroxine Sodium 25 MCG eCW1 ([facility]) Levothyroxine Sodium 0.025 MG Oral Tablet Levothyroxin e Sodium 25 MCG Levothyroxine Sodium 25 MCG 05/11/2020 12:00:00 AM EST active Levothyroxine Sodium 25 MCG eCW1 ([facility]) Levothyroxine Sodium 0.025 MG Oral Tablet Levothyroxin e Sodium 25 MCG Levothyroxine Sodium 25 MCG 05/11/2020 12:00:00 AM EST active Levothyroxine Sodium 25 MCG eCW1 ([facility]) Levothyroxine Sodium 0.025 MG Oral Tablet Levothyroxin e Sodium 25 MCG Levothyroxine Sodium 25 MCG 05/11/2020 12:00:00 AM EST suspended Levothyroxine Sodium 25 MCG eCW1 ([facility]) Levothyroxine Sodium 0.025 MG Oral Tablet Levothyroxin e Sodium 25 MCG Levothyroxine Sodium 25 MCG 05/11/2020 12:00:00 AM EST active Levothyroxine Sodium 25 MCG eCW1 ([facility]) Levothyroxine Sodium 0.025 MG Oral Tablet Levothyroxin e Sodium 25 MCG Levothyroxine Sodium 25 MCG 05/11/2020 12:00:00 AM EST active Levothyroxine Sodium 25 MCG eCW1 ([facility]) Levothyroxine Sodium 0.025 MG Oral Tablet Levothyroxin e Sodium 25 MCG Levothyroxine Sodium 25 MCG 05/11/2020 12:00:00 AM EST active Levothyroxine Sodium 25 MCG eCW1 ([facility]) Levothyroxine Sodium 0.025 MG Oral Tablet Levothyroxin e Sodium 25 MCG Levothyroxine Sodium 25 MCG 05/11/2020 12:00:00 AM EST active Levothyroxine Sodium 25 MCG eCW1 ([facility]) Insurance Providers Payer name Policy type / Coverage type Policy ID Covered libertarian ID Covered libertarian's relationship to mirza Policy Mirza Plan Information MARIBEL [id number] SP [id number] [place] O [id number] S [id number] MARIBEL [id number] SP [id number] [employer] [id number] S [id number] MARIBEL I [id number] Self [id number] [employer] MEDICAID MANA[employer]ED CARE [id number] SP [id number] [employer]ARE [id number] SP [id number] MARIBEL I [id number] Self [id number] [employer]ICA[employer] MANA[employer]ED CARE UNAVAILABLE SP UNAVAILABLE Problems, Conditions, and Diagnoses Code Display Name Description Problem Type Effective Dates Data Source(s) 18093420 Essential hypertension Essential hypertension Problem 06/09/2020 12:00:00 AM EST MEDENT ([facility]) [id number] Sinus bradycardia Sinus bradycardia Problem 06/09/2020 12:00:00 AM EST MEDENT ([facility]) [id number] Dizziness and giddiness Dizziness and giddiness Proble m 06/09/2020 12:00:00 AM EST MEDENT ([facility]) [id number] Electrocardiogram abnormal Electrocardiogram abnormal Problem 06/09/2020 12:00:00 AM EST MEDENT ([facility]) [id number] Dietary management surveillance Dietary manageme nt surveillance Problem 06/09/2020 12:00:00 AM EST MEDENT ([facility] [id number] Heart murmur Heart murmur Problem 06/09/2020 12:00:00 A M EST MEDENT ([facility]) R79.89 [id number] Elevated LFTs Problem 05/10/2020 12:00:00 AM EST eCW1 ([facility]) R63.0 [id number] Decreased appetite Problem 05/10/2020 12:00: 00 AM EST eCW1 ([facility]) E16.2 Hypoglycemia Hypoglycemia Problem 12/15/2019 12:00:00 A M EDT eCW1 ([facility]) E21.3 49599293 Hyperparathyroidism Problem 11/01/2019 12:00 :00 AM EDT eCW1 ([facility]) E21.3 22162807 Hyperparathyroidism Problem 11/01/2019 12:00 :00 AM EDT eCW1 ([facility]) M85.80 [id number] Osteopenia after menopause Problem 0 12:00:00 AM EDT eCW1 ([facility]) M85.80 [id number] Osteopenia after menopause Problem 0 12:00:00 AM EDT eCW1 ([facility]) R80.9 Microalbuminuria Microalbuminuria Problem 08/03/2019 12 :00:00 AM EST eCW1 ([facility]) R80.9 Microalbuminuria Microalbuminuria Problem 08/03/2019 12 :00:00 AM EST eCW1 ([facility]) Z91.89 [id number] At high risk for breast cancer Problem 07/23/2019 12:00:00 AM EST eCW1 ([facility]) K43.9 [id number] Ventral hernia without obstruction or magalis grene Problem 07/23/2019 12:00:00 AM EST eCW1 ([facility]) D75.89 [id number] Macrocytosis Problem 07/23/2019 12:00:00 AM EST eCW1 ([facility]) E34.9 0021940 Elevated parathyroid hormone Problem 020 12:00:00 AM EST eCW1 ([facility]) K43.9 [id number] Ventral hernia without obstruction or magalis grene Problem 07/23/2019 12:00:00 AM EST eCW1 ([facility]) E34.9 [id number] Elevated parathyroid hormone Problem 020 12:00:00 AM EST eCW1 ([facility]) Z91.89 [id number] At high risk for breast cancer Problem 07/23/2019 12:00:00 AM EST eCW1 ([facility]) D75.89 [id number] Macrocytosis Problem 07/23/2019 12:00:00 AM EST eCW1 ([facility]) Surgeries/Procedures Procedure Description Date Indications Data Source(s) ECG ROUTINE ECG W/LEAST 12 LDS W/I&R 06/09/2020 12:00: 00 AM EST MEDENT ([facility]) Immunization: Flublok Quadrivalent (18 years & older) 0.5mL IM (Influenza) 03/16/2020 12:00:00 AM EDT eCW1 ([facility]) PSYTX W PT 45 MINUTES 09/01/2019 12:00:00 AM EDT eCW1 ([facility]) EKG- ALL NON MCR/TRI PAYERS 07/23/2019 12:00:00 AM EST eCW1 ([facility]) TEST FOR BLOOD, FECES 06/05/2019 12:00:00 AM EST eCW1 ([facility]) Results ID Date Data Source [id number] 07/15/2020 11:32:00 AM EST MEDENT ([facility]) Name Value Range Interpretation Code Description Data Wilma rce(s) Supporting Document(s) Free T4 1.98 0.76-1.46 MED[facility] ([facility] Thyroid Stimulating Hormone 0.143 0.358-3.740 MED[facility] ([facility]) ID Date Data Source [id number] 07/15/2020 11:32:00 AM EST MEDENT ([facility]) Name Value Range Interpretation Code Description Data Wilma rce(s) Supporting Document(s) Albumin [Mass/volume] in Serum or Plasma 4.2 [facility] ([facility]) Alanine aminotransferase [Enzymatic activity/volume] in Serum or Pl asma 56 MED[facility] ([facility]) Calcium [Mass/volume] in Serum or Plasma 9.7 [facility] ([facility]) Chloride [Moles/volume] in Serum or Plasma 110 98-107 MED[facility] ([facility]) Carbon dioxide, total [Moles/volume] in Serum or Plasma 22 [facility] ([facility]) Alkaline phosphatase [Enzymatic activity/volume] in Serum or James sma 232 45-117 MED[facility] ([facility]) Potassium [Moles/volume] in Serum or Plasma 4.2 MED[facility] ([facility]) Protein [Mass/volume] in Serum or Plasma 6.8 [facility] ([facility]) Sodium 138 [facility] ([facility] Aspartate aminotransferase [Enzymatic activity/volume] in Serum or Plasma 30 [facility] ([facility]) Urea nitrogen [Mass/volume] in Serum or Plasma 23 7-18 MED[facility] ([facility]) Creatinine For GFR 1.13 [facility] Glucose 100 83-110 MED[facility] ([facility] ID Date Data Source [id number] 06/16/2020 12:00:00 AM EST [facility] Name Value Range Interpretation Code Description Data Wilma rce(s) Supporting Document(s) SARS coronavirus 2 RNA [Presence] in Res piratory specimen by KERI with probe detection NEGATIVE [facility] This lab was ordered by Katelyn Han and reported by [employer]. ID Date Data Source [id number] 06/16/2020 12:00:00 AM EST [facility] Name Value Range Interpretation Code Description Data Wilma rce(s) Supporting Document(s) Carestart Rapid COVID Antigen Test Negative [facility] This lab was reported by Katelyn [facility] ID Date Data Source [id number] 06/09/2020 10:34:00 AM EST [facility] ([facility]) Name Value Range Interpretation Code Description Data Wilma rce(s) Supporting Document(s) Thyrotropin [Units/volume] in Serum or Plasma 30.700 uIU/ML 0.358-3.7 40 MEDENT ([facility]) ID Date Data Source TOTAL PROTEIN,RANDOM URINE 06/08/2020 12:00:00 AM EST eCW1 ( [facility]) Name Value Range Interpretation Code Description Data Wilma rce(s) Supporting Document(s) 164.4 0.0-12.0 eCW1 ([facility]) ID Date Data Source MAGNESIUM LEVEL 06/08/2020 12:00:00 AM EST eCW1 ([facility]) Name Value Range Interpretation Code Description Data Wilma rce(s) Supporting Document(s) 2.9 1.8-2.4 eCW1 ([facility]) ID Date Data Source URINE CULTURE 06/08/2020 12:00:00 AM EST eCW1 ([facility]) Name Value Range Interpretation Code Description Data Wilma rce(s) Supporting Document(s) eCW1 ([facility]) ID Date Data Source FREE T4 & TSH PANEL 06/08/2020 12:00:00 AM EST eCW1 ([facility]) Name Value Range Interpretation Code Description Data Wilma rce(s) Supporting Document(s) 0.81 0.76-1.46 FREE T4 eCW1 ([facility]) 32.600 0.358-3.740 THYROID STIMULATING HORM ONE eCW1 ([facility]) ID Date Data Source Comprehensive Metabolic Profile (CMP) 06/08/2020 12:00:00 AM EST eCW1 ([facility]) Name Value Range Interpretation Code Description Data Wilma rce(s) Supporting Document(s) 84 70-100 GLUCOSE, FASTING eCW1 ([facility]) 10 7-18 BLOOD UREA NITROGEN eCW1 ([facility]) 57.1 >51 GLOMERULAR FILTRATION RATE eCW 1 ([facility]) 138 136-145 SODIUM LEVEL eCW1 ([facility]) 4.2 3.5-5.1 POTASSIUM SERUM eCW1 ([facility]) 109 98-107 CHLORIDE LEVEL eCW1 ([facility]) 1.05 0.55-1.30 CREATININE FOR GFR eCW1 ([facility]) 41 7-37 AST/SGOT eCW1 ([facility]) 9.4 8.5-10.1 CALCIUM LEVEL eCW1 ([facility]) 64 12-78 ALT/SGPT eCW1 ([facility]) 147 45-117 ALKALINE PHOSPHATASE eCW1 ([facility]) 26 21-32 CARBON DIOXIDE LEVEL eCW1 ([facility]) 0.6 0.2-1.0 BILIRUBIN,TOTAL eCW1 ([facility]) 1.4 1.2-2.2 ALBUMIN/GLOBULIN RATIO eCW1 ([facility]) 3.9 3.2-5.2 ALBUMIN eCW1 ([facility]) 6.6 6.4-8.2 TOTAL PROTEIN eCW1 ([facility]) ID Date Data Source [id number] 05/10/2020 01:35:00 PM EST MEDENT ([facility]) Name Value Range Interpretation Code Description Data Wilma rce(s) Supporting Document(s) Ferritin [Mass/volume] in Serum or Plasma 131 22.0-322.0 MEDENT ([facility]) ID Date Data Source [id number] 05/10/2020 01:35:00 PM EST [facility] Name Value Range Interpretation Code Description Data Wilma rce(s) Supporting Document(s) Cobalamin (Vitamin B12) [Mass/volume] in Serum or Plasma 1507 MEDENT ([facility]) Folate 17.4 [facility] ID Date Data Source [id number] 05/10/2020 01:35:00 PM EST [facility] Name Value Range Interpretation Code Description Data Wilma rce(s) Supporting Document(s) Free T4 0.75 MEDENT ([facility]) Magnesium Level 2.9 MEDENT ([facility]) Thyroid Stimulating Hormone 23.200 ME DENT ([facility]) ID Date Data Source [id number] 05/10/2020 01:35:00 PM EST [facility] Name Value Range Interpretation Code Description Data Wilma rce(s) Supporting Document(s) Albumin [Mass/volume] in Serum or Plasma 4.0 MEDENT ([facility]) Alanine aminotransferase [Enzymatic activity/volume] in Serum or Pl asma 79 MEDENT ([facility]) Chloride [Moles/volume] in Serum or Plasma 111 MEDENT ([facility]) Carbon dioxide, total [Moles/volume] in Serum or Plasma 25 MEDENT ([facility]) Calcium [Mass/volume] in Serum or Plasma 9.2 MEDENT ([facility]) Protein [Mass/volume] in Serum or Plasma 6.6 MEDENT ([facility]) Potassium [Moles/volume] in Serum or Plasma 4.5 MEDENT ([facility]) Alkaline phosphatase [Enzymatic activity/volume] in Serum or Plasma 1 49 MEDENT ([facility]) Sodium 140 MEDENT ([facility] Aspartate aminotransferase [Enzymatic activity/volume] in Serum or Plasma 58 MEDENT ([facility]) Glucose 84 70-100 MEDENT ([facility] Urea nitrogen [Mass/volume] in Serum or Plasma 14 MEDENT ([facility]) Creatinine For GFR 0.88 MEDENT ([facility]) ID Date Data Source [id number] 05/10/2020 01:35:00 PM EST MEDENT ([facility]) Name Value Range Interpretation Code Description Data Wilma rce(s) Supporting Document(s) White Blood Count 6.7 4.3-10.9 MEDENT ([facility]) Platelets 215 130-400 MED[facility] ([facility] Red Blood Count 3.63 4.70-6.20 MEDENT ([facility]) Hemoglobin 12.1 13.0-17.0 MEDENT ([facility]) Hematocrit 37.9 39.0-50.0 MEDENT ([facility]) ID Date Data Source UA URINALYSIS 05/10/2020 12:00:00 AM EST eCW1 ([facility]) Name Value Range Interpretation Code Description Data Wilma rce(s) Supporting Document(s) eCW1 ([facility]) ID Date Data Source VITB12 & FOL 05/10/2020 12:00:00 AM EST eCW1 ([facility]) Name Value Range Interpretation Code Description Data Wilma rce(s) Supporting Document(s) 1507 VITAMIN B12 LEVEL eCW1 ([facility]) 17.4 FOLATE eCW1 ([facility]) ID Date Data Source FERRITIN 05/10/2020 12:00:00 AM EST eCW1 ([facility]) Name Value Range Interpretation Code Description Data Wilma rce(s) Supporting Document(s) 131 8-252 eCW1 ([facility]) ID Date Data Source CBC with Differential 05/10/2020 12:00:00 AM EST eCW1 ([facility]) Name Value Range Interpretation Code Description Data Wilma rce(s) Supporting Document(s) 6.7 4.0-10.0 eCW1 ([facility]) 3.63 4.00-5.40 eCW1 ([facility]) 12.1 12.0-15.5 eCW1 ([email or web address] 104.4 80.0-96.0 eCW1 ([facility]) 37.9 36.0-47.0 eCW1 ([facility]) 33.3 27.0-33.0 eCW1 ([facility] [[email or web address] 22.8 24.0-44.0 eCW1 ([facility]) 13.0 11.5-14.5 eCW1 ([facility]) 31.9 32.0-36.5 eCW1 ([facility]) 66.9 36.0-66.0 eCW1 ([facility]) 215 150-450 eCW1 ([facility]) 5.2 0.0-5.0 eCW1 ([facility]) 4.0 0.0-3.0 eCW1 ([facility]) 4.5 1.5-8.5 eCW1 ([facility]) 1.0 0.0-1.0 eCW1 ([facility]) 0.4 0.0-0.8 eCW1 ([facility]) 1.5 1.5-5.0 eCW1 ([facility]) 0.3 0.0-0.5 eCW1 ([facility]) 0.1 0.0-0.2 eCW1 ([facility]) ID Date Data Source [id number] 04/18/2020 12:00:00 AM EST [facility] Name Value Range Interpretation Code Description Data Wilma rce(s) Supporting Document(s) SARS-CoV2 Rapid Antigen [facility] This lab was ordered by [facility] and reported by [facility]. ID Date Data Source [id number] RENAL US 03/25/2020 02:32:11 AM EDT eCW1 ([facility]) Name Value Range Interpretation Code Description Data Wilma rce(s) Supporting Document(s) eCW1 ([facility]) ID Date Data Source VITAMIN [id number] 03/16/2020 06:04:11 AM EDT eCW1 ([facility]) Name Value Range Interpretation Code Description Data Wilma rce(s) Supporting Document(s) 29.8 TOTAL 25(OH) VITAMIN D eCW1 ([facility]) ID Date Data Source [id number] 07/23/2019 12:00:00 AM EST eCW1 ([facility]) Name Value Range Interpretation Code Description Data Wilma rce(s) Supporting Document(s) Microalbumin/Creatinine [Mass Ratio] in Urine 94.5 CREATININE, URINE eCW1 ([facility]) Albumin/Creatinine [Mass Ratio] in Urine 545.0 MALB URINE SIEMENS eCW1 ([facility]) Microalbumin/Creatinine [Ratio] in Urine 576.7 0.0-30.0 SYBIL/CREAT RATIO eCW1 ([facility]) ID Date Data Source CBC - Complete Blood Count 07/23/2019 12:00:00 AM EST eCW1 ( [facility]) Name Value Range Interpretation Code Description Data Wilma rce(s) Supporting Document(s) 6.8 4.0-10.0 WHITE BLOOD COUNT eCW1 ([facility]) 3.79 4.00-5.40 RED BLOOD COUNT eCW1 ([facility]) 12.4 12.0-15.5 HEMOGLOBIN eCW1 ([facility]) 32.7 27.0-33.0 MEAN CORPUSCULAR HEMOGLOB IN eCW1 ([facility]) 103.2 80.0-96.0 MEAN CORPUSCULAR VOLUME e CW1 ([facility]) 39.1 36.0-47.0 HEMATOCRIT eCW1 ([facility]) 31.7 32.0-36.5 MEAN CORPUSCULAR HGB CONC eCW1 ([facility]) 12.8 11.5-14.5 RED CELL DISTRIBUTION WID TH eCW1 ([facility]) 195 150-450 PLATELET COUNT, AUTOMATED eCW1 ([facility]) Procedure Social History Code Duration Value Status Description Data Source(s ) Smoking 07/15/2020 12:00:00 AM EST Never Smoker completed Never S moker eCW1 ([facility]) Smoking 06/22/2020 12:00:00 AM EST Never Smoker completed Never S moker eCW1 ([facility]) Smoking 06/09/2020 12:00:00 AM EST Patient has never smoked co mpleted Patient has never smoked MEDENT ([facility]) Smoking 06/08/2020 12:00:00 AM EST Never Smoker completed Never S moker eCW1 ([facility]) Smoking 06/08/2020 12:00:00 AM EST Never Smoker completed Never S moker eCW1 ([facility]) Smoking 06/08/2020 12:00:00 AM EST Never Smoker completed Never S moker eCW1 ([facility]) Smoking 06/08/2020 12:00:00 AM EST Never Smoker completed Never S moker eCW1 ([facility]) Smoking 05/10/2020 12:00:00 AM EST Never Smoker completed Never S moker eCW1 ([facility]) Smoking 05/10/2020 12:00:00 AM EST Never Smoker completed Never S moker eCW1 ([facility]) Smoking 03/16/2020 12:00:00 AM EDT Never Smoker completed Never S moker eCW1 ([facility]) Smoking 12/15/2019 12:00:00 AM EDT Never Smoker completed Never S moker eCW1 ([facility]) Smoking 12/15/2019 12:00:00 AM EDT Never Smoker completed Never S moker eCW1 ([facility]) Smoking 12/15/2019 12:00:00 AM EDT Never Smoker completed Never S moker eCW1 ([facility]) Smoking 11/01/2019 12:00:00 AM EDT Never Smoker completed Never S moker eCW1 ([facility]) Vital Signs ID Date Data Source [id number] Name Value Range Interpretation Code Description Data Source(s) Diastolic blood pressure 60 mm[Hg] 60 mm[Hg] eCW1 ([facility]) Systolic blood pressure 100 mm[Hg] 100 mm[Hg] e CW1 ([facility]) Body temperature 98.2 [degF] 98.2 [degF] eCW1 ( [facility]) Respiratory rate 18 /min 18 /min eCW1 ([facility]) Heart rate 76 /min 76 /min eCW1 ([facility]) Body mass index (BMI) [Ratio] 18.08 kg/m2 18.08 kg/m2 eCW1 ([facility]) Body height 66 [in_i] 66 [in_i] eCW1 ([facility]) Body weight 112 [lb_av] 112 [lb_av] eCW1 ([facility]) Diastolic blood pressure--standing 64 mm[Hg] 6 4 mm[Hg] MEDENT ([facility]) [employer], adult cuff/Ra; HR: 54 bpm Systolic blood pressure--standing 117 mm[Hg] 11 7 mm[Hg] MEDENT ([facility]) [employer], adult cuff/Ra; HR: 54 bpm Diastolic blood pressure--supine 60 mm[Hg] 60 mm[Hg] MEDENT ([facility]) [employer], adult cuff/Ra; HR: 47 bpm Systolic blood pressure--supine 112 mm[Hg] 112 mm[Hg] MEDENT ([facility]) [employer], adult cuff/Ra; HR: 47 bpm Diastolic blood pressure--sitting 59 mm[Hg] 59 mm[Hg] MEDENT ([facility]) [employer], adult cuff/Ra; HR: 48 bpm Systolic blood pressure--sitting 106 mm[Hg] 106 mm[Hg] MEDENT ([facility]) [employer], adult cuff/Ra; HR: 48 bpm Heart rate 48 /min 48 /min MEDENT ([facility]) Body mass index (BMI) [Ratio] 17.4 kg/m2 17.4 k g/[facility]2 [facility] Body height 66 [in_i] 66 [in_i] MEDENT ([facility]) 5'6" Body weight 108.00 [lb_av] 108.00 [lb_av] MEDEN T ([facility]) Diastolic blood pressure 70 mm[Hg] 70 mm[Hg] eCW1 ([facility]) Systolic blood pressure 110 mm[Hg] 110 mm[Hg] e CW1 ([facility]) Body temperature 97.8 [degF] 97.8 [degF] eCW1 ( [facility]) Respiratory rate 18 /min 18 /min eCW1 ([facility]) Heart rate 50 /min 50 /min eCW1 ([facility]) Body mass index (BMI) [Ratio] 17.75 kg/m2 17.75 kg/m2 eCW1 ([facility]) Body height 66 [in_i] 66 [in_i] eCW1 ([facility]) Body weight 110 [lb_av] 110 [lb_av] eCW1 ([facility]) Diastolic blood pressure 70 mm[Hg] 70 mm[Hg] eCW1 ([facility]) Systolic blood pressure 120 mm[Hg] 120 mm[Hg] e CW1 ([facility]) Body temperature 97.5 [degF] 97.5 [degF] eCW1 ( [facility]) Respiratory rate 18 /min 18 /min eCW1 ([facility]) Heart rate 59 /min 59 /min eCW1 ([facility]) Body mass index (BMI) [Ratio] 17.91 kg/m2 17.91 kg/m2 eCW1 ([facility]) Body height 66 [in_i] 66 [in_i] eCW1 ([facility]) Body weight 111 [lb_av] 111 [lb_av] eCW1 ([facility]) Diastolic blood pressure 70 mm[Hg] 70 mm[Hg] eCW1 ([facility]) Systolic blood pressure 110 mm[Hg] 110 mm[Hg] e CW1 ([facility]) Body temperature 97.5 [degF] 97.5 [degF] eCW1 ( [facility]) Respiratory rate 18 /min 18 /min eCW1 ([facility]) Heart rate 64 /min 64 /min eCW1 ([facility]) Body mass index (BMI) [Ratio] 18.72 kg/m2 18.72 kg/m2 eCW1 ([facility]) Body height 66 [in_i] 66 [in_i] eCW1 ([facility]) Body weight 116 [lb_av] 116 [lb_av] eCW1 ([facility]) Diastolic blood pressure 70 mm[Hg] 70 mm[Hg] eCW1 ([facility]) Systolic blood pressure 118 mm[Hg] 118 mm[Hg] e CW1 ([facility]) Body temperature 98.0 [degF] 98.0 [degF] eCW1 ( [facility]) Respiratory rate 16 /min 16 /min eCW1 ([facility]) Heart rate 60 /min 60 /min eCW1 ([facility]) Body mass index (BMI) [Ratio] 19.85 kg/m2 19.85 kg/m2 eCW1 ([facility]) Body height 66 [in_i] 66 [in_i] eCW1 ([facility]) Body weight 123 [lb_av] 123 [lb_av] eCW1 ([facility]) Diastolic blood pressure 68 mm[Hg] 68 mm[Hg] eCW1 ([facility]) Systolic blood pressure 106 mm[Hg] 106 mm[Hg] e CW1 ([facility]) Body temperature 97.8 [degF] 97.8 [degF] eCW1 ( [facility]) Respiratory rate 16 /min 16 /min eCW1 ([facility]) Heart rate 58 /min 58 /min eCW1 ([facility]) Body mass index (BMI) [Ratio] 20.82 kg/m2 20.82 kg/m2 eCW1 ([facility]) Body height 66 [in_i] 66 [in_i] eCW1 ([facility]) Body weight 129.0 [lb_av] 129.0 [lb_av] eCW1 ([facility]) Diastolic blood pressure 72 mm[Hg] 72 mm[Hg] eCW1 ([facility]) Systolic blood pressure 108 mm[Hg] 108 mm[Hg] e CW1 ([facility]) Body mass index (BMI) [Ratio] 20.98 kg/m2 20.98 kg/m2 eCW1 ([facility]) Body height 66 [in_us] 66 [in_us] eCW1 ([facility]) Body weight Measured 130 [lb_av] 130 [lb_av] eC W1 ([facility]) Diastolic blood pressure 72 mm[Hg] 72 mm[Hg] eCW1 ([facility]) Systolic blood pressure 108 mm[Hg] 108 mm[Hg] e CW1 ([facility]) Body temperature 97.3 [degF] 97.3 [degF] eCW1 ( [facility]) Respiratory rate 18 /min 18 /min eCW1 ([facility]) Heart rate 74 /min 74 /min eCW1 ([facility]) Body mass index (BMI) [Ratio] 20.98 kg/m2 20.98 kg/m2 eCW1 ([facility]) Body height 66 [in_us] 66 [in_us] eCW1 ([facility]) Body weight Measured 130.0 [lb_av] 130.0 [lb_av ] eCW1 ([facility]) Diastolic blood pressure 68 mm[Hg] 68 mm[Hg] eCW1 ([facility]) Systolic blood pressure 110 mm[Hg] 110 mm[Hg] e CW1 ([facility]) Body temperature 95.5 [degF] 95.5 [degF] eCW1 ( [facility]) Respiratory rate 18 /min 18 /min eCW1 ([facility]) Heart rate 64 /min 64 /min eCW1 ([facility]) Body mass index (BMI) [Ratio] 20.01 kg/m2 20.01 kg/m2 eCW1 ([facility]) Body height 66 [in_us] 66 [in_us] eCW1 ([facility]) Body weight Measured 124.0 [lb_av] 124.0 [lb_av ] eCW1 ([facility]) Heart rate 68 /min 68 /min eCW1 ([facility]) Body mass index (BMI) [Ratio] 20.50 kg/m2 20.50 kg/m2 eCW1 ([facility]) Body height 66 [in_us] 66 [in_us] eCW1 ([facility]) Body weight Measured 127.0 [lb_av] 127.0 [lb_av ] eCW1 ([facility]) Diastolic blood pressure 72 mm[Hg] 72 mm[Hg] eCW1 ([facility]) Systolic blood pressure 114 mm[Hg] 114 mm[Hg] e CW1 ([facility]) Body temperature 98.4 [degF] 98.4 [degF] eCW1 ( [facility]) Respiratory rate 18 /min 18 /min eCW1 ([facility]) Patient Treatment Plan of Care Planned Activity Planned Date Details Description Data Source (s) Ondansetron 4 MG Oral Tablet 07/15/2020 12:00:00 AM EST eCW1 ([facility]) Levothyroxine Sodium 0.025 MG Oral Tablet 07/15/2020 12:00:00 AM ES T eCW1 ([facility]) Clotrimazole 10 MG Oral Lozenge 07/15/2020 12:00:00 AM EST eCW1 ([facility]) topiramate 25 MG Oral Tablet 07/15/2020 12:00:00 AM EST eCW1 ([facility]) Famotidine 40 MG Oral Tablet 06/08/2020 12:00:00 AM EST eCW1 ([facility]) Famotidine 40 MG Oral Tablet 06/08/2020 12:00:00 AM EST eCW1 ([facility]) Famotidine 40 MG Oral Tablet 06/08/2020 12:00:00 AM EST eCW1 ([facility]) Famotidine 40 MG Oral Tablet 06/08/2020 12:00:00 AM EST eCW1 ([facility]) Levothyroxine Sodium 0.025 MG Oral Tablet 05/11/2020 12:00:00 AM ES T eCW1 ([facility]) Levothyroxine Sodium 0.025 MG Oral Tablet 05/11/2020 12:00:00 AM ES T eCW1 ([facility]) Levothyroxine Sodium 0.025 MG Oral Tablet 05/11/2020 12:00:00 AM ES T eCW1 ([facility]) Levothyroxine Sodium 0.025 MG Oral Tablet 05/11/2020 12:00:00 AM ES T eCW1 ([facility]) Levothyroxine Sodium 0.025 MG Oral Tablet 05/11/2020 12:00:00 AM ES T eCW1 ([facility]) Levothyroxine Sodium 0.025 MG Oral Tablet 05/11/2020 12:00:00 AM ES T eCW1 ([facility])
[2020-07-19] MEDS ORDERED: PRIS100T PO (14:09)
[2020-07-19] MEDS ORDERED: NS 1,000 ML IV ONE (14:45)
[2020-07-19] MEDS ORDERED: ONDANSETRON 4MG/2ML VIAL IV ONE (14:45)
[2020-07-19 14:58] LABS: BASO # 0.1 10^3/uL (0.0-0.2); BASO % 0.5 % (0.0-1.0); EOS # 0.2 10^3/uL (0.0-0.5); EOS % 2.4 % (0.0-3.0); HEMATOCRIT 35.7 % (36.0-47.0); HEMOGLOBIN 11.5 g/dl (12.0-15.5); LYMPH # 1.7 10^3/uL (1.5-5.0); LYMPH % 17.8 % (24.0-44.0); MEAN CORPUSCULAR HEMOGLOBIN 32.5 pg (27.0-33.0); MEAN CORPUSCULAR HGB CONC 32.2 g/dl (32.0-36.5); MEAN CORPUSCULAR VOLUME 100.8 fl (80.0-96.0); MONO # 0.6 10^3/uL (0.0-0.8); MONO % 6.2 % (2.0-8.0); NEUTROPHILS # 6.9 10^3/uL (1.5-8.5); NEUTROPHILS % 72.6 % (36.0-66.0); PLATELET COUNT, AUTOMATED 274 10^3/uL (150-450); RED BLOOD COUNT 3.54 10^6/uL (4.00-5.40); WHITE BLOOD COUNT 9.5 10^3/uL (4.0-10.0)
[2020-07-19 15:08] LABS: INR 1.27; PROTHROMBIN TIME 16.2 SECONDS (12.5-14.3)
[2020-07-19 15:09] LABS: PARTIAL THROMBOPLASTIN TIME 27.8 SECONDS (24.2-38.5)
--- OUTSIDE RECORDS SUMMARY | 2020-07-19 15:17 | CCD ---
Author Author [facility] Organization [facility] Address Unknown Phone Unavailable Care Team Providers Care Bag Liner Name Role Phone Anika AMADO MD Unavailable [...] is protected by Article 27-F of the [facility] Public Health law. If you continue you may have access to information: Regarding HIV / AIDS; Provided by facilities licensed or operated by the [facility] Office of Mental Health; or Provided by the [facility] Office for People With Developmental Disabilities. If such information is present, then the following [facility] mandated warning applies: This information has been [...] law may result in a fine or care home sentence or both. A general authorization for the release of medical or other information is NOT sufficient authorization for further disc losure. Encounters Encounter Providers Location Date Indications Data Source(s ) Unknown [address] [facility] [address] 07/15/2020 12:00:00 AM EST eCW1 [facility] Outpatient [address] [facility] [place] [address] 06/22/2020 12:00:00 AM EST eCW1 ([facility]) Office Visit Attender: NATHAN AMADO MD Main Office 06/09/2020 07: 45:00 AM EST MEDENT ([facility]) Unknown [address] [facility] [address] 06/09/2020 12:00:00 AM EST eCW1 ([facility]) Outpatient [address] [facility] [place] [address] 06/08/2020 12:00:00 AM EST [facility]CW1 [facility] Unknown [address] [facility] [place] [address] 06/08/2020 12:00:00 AM EST eCW1 [facility]) Unknown [address] [facility] [address] 06/08/2020 12:00:00 AM EST eCW1 ([facility]) Unknown [address] [facility] [place] [address] 05/11/2020 12:00:00 AM EST eCW1 [facility]) Outpatient [address] [facility] [place] [address] 05/10/2020 12:00:00 AM EST eCW1 ([facility]) Outpatient [address] [facility] [place] [address] 03/16/2020 12:00:00 AM EDT eCW1 ([facility]) Unknown [address] [facility] [place] [address] 03/15/2020 12:00:00 AM EDT eCW1 ([facility]) [facility] [address] [place] [address], [place] [address] 02/04/2020 12:00:00 AM EDT eCW1 ([facility]) Unknown [address] [place] [address], [place] [address] 12/17/2019 12:00:00 AM EDT eCW1 ([facility]) Outpatient [address] [place] [address], [place] [address] 12/15/2019 12:00:00 AM EDT eCW1 ([facility]) [address] [place] [address] 11/01/2019 12:00:00 AM EDT eCW1 ([facility]) Outpatient [address] [place] [address] [place] [address] 10/30/2019 12:00:00 AM EDT eCW1 ([facility]) [address] [address] 10/07/2019 12:00:00 AM EDT eCW1 ([facility]) [address] [address] 09/15/2019 12:00:00 AM EDT eCW1 ([facility]) Outpatient 09/10/2019 04:34:00 AM EDT [facility] [address] [address] 09/08/2019 12:00:00 AM EDT eCW1 ([facility]) [address] [place] [address] 09/07/2019 12:00:00 AM EDT eCW1 ([facility]) [address] [address] 09/01/2019 12:00:00 AM EDT eCW1 ([facility]) [address] [address] 08/28/2019 12:00:00 AM EDT eCW1 ([facility]) [address] [address] 08/17/2019 12:00:00 AM EDT eCW1 ([facility]) [facility] Dermatology [address] [place] [address] 08/14/2019 12:00:00 AM EDT eCW1 ([facility]) [address] [address] 08/10/2019 12:00:00 AM EDT eCW1 ([facility]) [address] [address] 08/04/2019 12:00:00 AM EST eCW1 ([facility]) [address] [address] 08/03/2019 12:00:00 AM EST eCW1 ([facility]) [address] [address] 08/03/2019 12:00:00 AM EST eCW1 ([facility]) [address] [place] [address] 08/03/2019 12:00:00 AM EST eCW1 ([facility]) [address] [place] [address] 07/24/2019 12:00:00 AM EST eCW1 ([facility]) [address] [place] [address] 07/23/2019 12:00:00 AM EST eCW1 ([facility]) [address] [address] 07/23/2019 12:00:00 AM EST eCW1 ([facility]) Outpatient 07/13/2019 03:44:00 PM EST [facility] Dermatology Center [address] [place] [address] 07/10/2019 12:00:00 AM EST eCW1 ([facility]) [address] [address] 07/09/2019 12:00:00 AM EST eCW1 ([facility]) [address] [address] 07/07/2019 12:00:00 AM EST eCW1 ([facility]) [address] [address] 06/25/2019 12:00:00 AM EST eCW1 ([facility]) [address] [address] 06/11/2019 12:00:00 AM EST eCW1 ([facility]) [address] [place] [address] 06/09/2019 12:00:00 AM EST eCW1 ([facility]) [address] [place] [address] 06/05/2019 12:00:00 AM EST eCW1 ([facility]) [address] [address] 05/26/2019 12:00:00 AM EST eCW1 ([facility]) Immunizations Vaccine Date Status Description Data Source(s) influenza, recombinant, quadrIvalent,injectable, prese rvative free 03/16/2020 10:27:00 AM EDT completed eCW1 ([facility]) influenza, recombinant, quadrIvalent,injectable, prese rvative free 03/16/2020 10:27:00 AM EDT completed eCW1 ([facility]) influenza, recombinant, quadrIvalent,injectable, prese rvative free 03/16/2020 10:27:00 AM EDT completed eCW1 ([facility]) influenza, recombinant, quadrIvalent,injectable, prese rvative free 03/16/2020 10:27:00 AM EDT completed eCW1 ([facility]) influenza, recombinant, quadrIvalent,injectable, prese rvative free 03/16/2020 10:27:00 AM EDT completed eCW1 ([facility]) influenza, recombinant, quadrIvalent,injectable, prese rvative free 03/16/2020 10:27:00 AM EDT completed eCW1 ([facility]) influenza, recombinant, quadrIvalent,injectable, prese rvative free 03/16/2020 10:27:00 AM EDT completed eCW1 ([facility]) influenza, recombinant, quadrIvalent,injectable, prese rvative free 03/16/2020 10:27:00 AM EDT completed eCW1 ([facility]) influenza, recombinant, quadrIvalent,injectable, prese rvative free 03/16/2020 10:27:00 AM EDT completed eCW1 ([facility]) Medications Medication Brand Name Start Date Product Form Dose Route Admi nistrative Instructions Pharmacy Instructions Status Indications Reaction Description Data Source(s) topiramate 25 MG Oral Tablet Topiramate 25 MG Topiramate 25 MG 07/15/2020 12:00:00 AM EST 1.0 {tablet} active To piramate 25 MG eCW1 ([facility]) Clotrimazole 10 MG Oral Lozenge Clotrimazole 10 MG 07/15/2020 12:00 :00 AM EST 1.0 {los} active Clotrimazole 10 MG eCW1 ([facility]) Levothyroxine Sodium 0.025 MG Oral Tablet Levothyroxin e Sodium 25 MCG Levothyroxine Sodium 25 MCG 07/15/2020 12:00:00 AM EST active Levothyroxine Sodium 25 MCG eCW1 ([facility]) Ondansetron 4 MG Oral Tablet Ondansetron HCl 4 MG Ondansetro n HCl 4 MG 07/15/2020 12:00:00 AM EST 1.0 {tablet} active Ondansetron HCl 4 MG eCW1 ([facility]) Levothyroxine Sodium 0.075 MG Oral Tablet [Levo-T] Levo-T 06/09/2020 12:00:00 AM EST ORAL active [facility] ([facility] Levothyroxine Sodium 0.025 MG Oral Tablet [Levo-T] Levo-T 06/09/2020 12:00:00 AM EST ORAL completed [facility] ([facility]) Amlodipine 5 MG Oral Tablet Amlodipine Besylate 06/09/2020 12:00:00 A M EST ORAL active [facility] ([facility]) Potassium Chloride 10 MEQ Extended Release Oral Capsule Pota ssium Chloride ER 06/08/2020 12:00:00 AM EST ORAL active [facility] ([facility]) Magnesium 06/08/2020 12:00:00 AM EST ORAL active [facility] ([facility]) quetiapine 200 MG Oral Tablet [Seroquel] Seroquel 06/08/2020 12 :00:00 AM EST ORAL active [facility] ([facility]) quetiapine 50 MG Oral Tablet [Seroquel] Seroquel 06/08/2020 12:00:0 0 AM EST ORAL active [facility] ([facility]) [place] Carbonate 450 MG Extended Release Oral Tablet Lithiu m Carbonate ER 06/08/2020 12:00:00 AM EST ORAL active [facility] ([facility]) Ascorbic Acid 60 MG / Beta Carotene 5000 UNT / Copper Sulfate 40 MG / dl-alpha tocopheryl acetate 30 UNT / Sodium Selenite 0.04 MG / Zinc Oxide 40 MG Oral Tablet Centrum Silver 50+Women 06/08/2020 12:00:00 AM EST ORAL active MEDENT ([facility]) [place] Carbonate 300 MG Extended Release Oral Tablet Lithiu m Carbonate ER 06/08/2020 12:00:00 AM EST ORAL active MEDENT ([facility]) [facility] 06/08/2020 12:00:00 AM EST ORAL completed [facility] ([facility]) Famotidine 40 MG Oral Tablet Famotidine 40 MG 06/08/2020 12:00:00 A M EST 1.0 {tablet_at_bedtime} active Famotidine 4 0 MG eCW1 ([facility]) Mirtazapine 30 MG Oral Tablet Mirtazapine 06/08/2020 12:00:00 AM EST ORAL active [facility] ([facility]) Aquadeks 06/08/2020 12:00:00 AM EST active [facility] ([facility]) topiramate 50 MG Oral Tablet Topiramate 06/08/2020 12:00:00 AM EST ORAL active [facility] ([facility]) Amlodipine 10 MG Oral Tablet [Norvasc] Norvasc 06/08/2020 12:00:00 AM EST ORAL completed [facility] ([facility]) Cholecalciferol 88591 UNT Oral Capsule Vitamin D3 06/08/2020 12:0 0:00 AM EST ORAL active [facility] ([facility]) aripiprazole 2 MG Oral Tablet Aripiprazole 06/08/2020 12:00:00 AM EST ORAL active [facility] ([facility]) Calcium Carbonate 1500 MG / Cholecalciferol 200 UNT Oral Tab let Calcium 600+D 06/08/2020 12:00:00 AM EST ORAL active MEDENT ([facility]) Famotidine 40 MG Oral Tablet Famotidine 40 MG 06/08/2020 12:00:00 A M EST 1.0 {tablet_at_bedtime} active Famotidine 4 0 MG eCW1 ([facility]) Famotidine 40 MG Oral Tablet Famotidine 40 MG 06/08/2020 12:00:00 A M EST 1.0 {tablet_at_bedtime} active Famotidine 4 0 MG eCW1 ([facility]) Famotidine 40 MG Oral Tablet Famotidine 40 MG 06/08/2020 12:00:00 A M EST 1.0 {tablet_at_bedtime} active Famotidine 4 0 MG eCW1 ([facility]) Levothyroxine Sodium 0.2 MG Oral Tablet Levothyroxine Sodium 06/08/2020 12:00:00 AM EST ORAL active MEDENT ([facility]) Famotidine 40 MG Oral Tablet Famotidine 40 MG 06/08/2020 12:00:00 A M EST 1.0 {tablet_at_bedtime} active Famotidine 4 0 MG eCW1 ([facility]) Famotidine 40 MG Oral Tablet Famotidine 40 MG 06/08/2020 12:00:00 A M EST 1.0 {tablet_at_bedtime} active Famotidine 4 0 MG eCW1 ([facility]) Levothyroxine Sodium 0.025 MG Oral Tablet Levothyroxin e Sodium 25 MCG Levothyroxine Sodium 25 MCG 05/11/2020 12:00:00 AM EST active Levothyroxine Sodium 25 MCG eCW1 ([facility]) Levothyroxine Sodium 0.025 MG Oral Tablet Levothyroxin e Sodium 25 MCG Levothyroxine Sodium 25 MCG 05/11/2020 12:00:00 AM EST active Levothyroxine Sodium 25 MCG eCW1 ([facility]) Levothyroxine Sodium 0.025 MG Oral Tablet Levothyroxin e Sodium 25 MCG Levothyroxine Sodium 25 MCG 05/11/2020 12:00:00 AM EST active Levothyroxine Sodium 25 MCG eCW1 ([facility]) Levothyroxine Sodium 0.025 MG Oral Tablet Levothyroxin e Sodium 25 MCG Levothyroxine Sodium 25 MCG 05/11/2020 12:00:00 AM EST suspended Levothyroxine Sodium 25 MCG eCW1 ([facility]) Levothyroxine Sodium 0.025 MG Oral Tablet Levothyroxin e Sodium 25 MCG Levothyroxine Sodium 25 MCG 05/11/2020 12:00:00 AM EST active Levothyroxine Sodium 25 MCG eCW1 ([facility]) Levothyroxine Sodium 0.025 MG Oral Tablet Levothyroxin e Sodium 25 MCG Levothyroxine Sodium 25 MCG 05/11/2020 12:00:00 AM EST active Levothyroxine Sodium 25 MCG eCW1 ([facility]) Levothyroxine Sodium 0.025 MG Oral Tablet Levothyroxin e Sodium 25 MCG Levothyroxine Sodium 25 MCG 05/11/2020 12:00:00 AM EST active Levothyroxine Sodium 25 MCG eCW1 ([facility]) Levothyroxine Sodium 0.025 MG Oral Tablet Levothyroxin e Sodium 25 MCG Levothyroxine Sodium 25 MCG 05/11/2020 12:00:00 AM EST active Levothyroxine Sodium 25 MCG eCW1 ([facility]) Insurance Providers Payer name Policy type / Coverage type Policy ID Covered libertarian ID Covered libertarian's relationship to mirza Policy Mirza Plan Information MARIBEL [id number] SP [id number] [place] O [id number] S [id number] MARIBEL [id number] SP [id number] [place] [id number] S [id number] MARIBEL I [id number] Self [id number] [employer]EL MEDICAID MANAGED CARE [id number] SP [id number] [employer]EL MEDICAID MANAGED CARE [id number] SP [id number] MARIBEL I [id number] Self [id number] MARIBEL MEDICAID MANAGED CARE UNAVAILABLE SP UNAVAILABLE Problems, Conditions, and Diagnoses Code Display Name Description Problem Type Effective Dates Data Source(s) 34979901 Essential hypertension Essential hypertension Problem 06/09/2020 12:00:00 AM EST MEDENT ([facility]) [id number] Sinus bradycardia Sinus bradycardia Problem 06/09/2020 12:00:00 AM EST MEDENT ([facility]) [id number] Dizziness and giddiness Dizziness and giddiness Proble m 06/09/2020 12:00:00 AM EST MEDENT ([facility]) [id number] Electrocardiogram abnormal Electrocardiogram abnormal Problem 06/09/2020 12:00:00 AM EST MEDENT ([facility]) [id number] Dietary management surveillance Dietary manageme nt surveillance Problem 06/09/2020 12:00:00 AM EST MEDENT ([facility]) [id number] Heart murmur Heart murmur Problem 06/09/2020 12:00:00 A M EST MEDENT ([facility]) R79.89 [id number] Elevated LFTs Problem 05/10/2020 12:00:00 AM EST eCW1 ([facility]) R63.0 [id number] Decreased appetite Problem 05/10/2020 12:00: 00 AM EST eCW1 ([facility]) E16.2 Hypoglycemia Hypoglycemia Problem 12/15/2019 12:00:00 A M EDT eCW1 ([facility]) E21.3 [id number] Hyperparathyroidism Problem 11/01/2019 12:00 :00 AM EDT eCW1 ([facility]) E21.3 [id number] Hyperparathyroidism Problem 11/01/2019 12:00 :00 AM EDT eCW1 ([facility]) M85.80 [id number] Osteopenia after menopause Problem 0 12:00:00 AM EDT eCW1 ([facility]) M85.80 [id number] Osteopenia after menopause Problem 0 12:00:00 AM EDT eCW1 ([facility]) R80.9 Microalbuminuria Microalbuminuria Problem 08/03/2019 12 :00:00 AM EST eCW1 ([facility]) R80.9 Microalbuminuria Microalbuminuria Problem 08/03/2019 12 :00:00 AM EST eCW1 ([facility]) Z91.89 [id number] At high risk for breast cancer Problem 07/23/2019 12:00:00 AM EST eCW1 ([facility]) K43.9 [id number] Ventral hernia without obstruction or magalis grene Problem 07/23/2019 12:00:00 AM EST eCW1 ([facility]) D75.89 [id number] Macrocytosis Problem 07/23/2019 12:00:00 AM EST eCW1 ([facility]) E34.9 4396971 Elevated parathyroid hormone Problem 020 12:00:00 AM EST eCW1 ([facility]) K43.9 [id number] Ventral hernia without obstruction or magalis grene Problem 07/23/2019 12:00:00 AM EST eCW1 ([facility]) E34.9 0205900 Elevated parathyroid hormone Problem 020 12:00:00 AM EST eCW1 ([facility]) Z91.89 [id number] At high risk for breast cancer Problem 07/23/2019 12:00:00 AM EST eCW1 ([facility]) D75.89 [id number] Macrocytosis Problem 07/23/2019 12:00:00 AM EST eCW1 ([facility]) Surgeries/Procedures Procedure Description Date Indications Data Source(s) ECG ROUTINE ECG W/LEAST 12 LDS W/I&R 06/09/2020 12:00: 00 AM EST MEDENT ([facility]) Immunization: Flublok Quadrivalent (18 years & older) 0.5mL IM (Influenza) 03/16/2020 12:00:00 AM EDT eCW1 ([facility]) PSYTX W PT 45 MINUTES 09/01/2019 12:00:00 AM EDT eCW1 ([facility]) EKG- ALL NON MCR/TRI PAYERS 07/23/2019 12:00:00 AM EST eCW1 ([facility]) TEST FOR BLOOD, FECES 06/05/2019 12:00:00 AM EST eCW1 ([facility]) Results ID Date Data Source [id number] 07/15/2020 11:32:00 AM EST MEDENT ([facility]) Name Value Range Interpretation Code Description Data Wilma rce(s) Supporting Document(s) Free T4 1.98 0.76-1.46 MEDENT ([facility]) Thyroid Stimulating Hormone 0.143 0.358-3.740 MEDENT ([facility]) ID Date Data Source [id number] 07/15/2020 11:32:00 AM EST [facility]) Name Value Range Interpretation Code Description Data Wilma rce(s) Supporting Document(s) Albumin [Mass/volume] in Serum or Plasma 4.2 MED[facility] ([facility]) Alanine aminotransferase [Enzymatic activity/volume] in Serum or Pl asma 56 MEDENT ([facility]) Calcium [Mass/volume] in Serum or Plasma 9.7 MED[facility] ([facility]) Chloride [Moles/volume] in Serum or Plasma 110 98-107 MEDENT ([facility]) Carbon dioxide, total [Moles/volume] in Serum or Plasma 22 [facility] ([facility]) Alkaline phosphatase [Enzymatic activity/volume] in Serum or James sma 232 45-117 MEDENT ([facility]) Potassium [Moles/volume] in Serum or Plasma 4.2 [facility] ([facility]) Protein [Mass/volume] in Serum or Plasma 6.8 MED[facility] ([facility]) Sodium 138 MED[facility] ([facility]) Aspartate aminotransferase [Enzymatic activity/volume] in Serum or Plasma 30 MEDENT ([facility]) Urea nitrogen [Mass/volume] in Serum or Plasma 23 7-18 MEDENT ([facility]) Creatinine For GFR 1.13 MEDENT [facility] Glucose 100 83-110 MEDENT ([facility]) ID Date Data Source [id number] 06/16/2020 12:00:00 AM EST [facility] Name Value Range Interpretation Code Description Data Wilma rce(s) Supporting Document(s) SARS coronavirus 2 RNA [Presence] in Res piratory specimen by KERI with probe detection NEGATIVE [facility] This lab was ordered by Katelyn Han and reported by [employer]. ID Date Data Source [id number] 06/16/2020 12:00:00 AM EST [facility] Name Value Range Interpretation Code Description Data Wilma rce(s) Supporting Document(s) Carestart Rapid COVID Antigen Test Negative [facility] This lab was reported by [facility] ID Date Data Source [id number] 06/09/2020 10:34:00 AM EST MED[facility] ([facility]) Name Value Range Interpretation Code Description Data Wilma rce(s) Supporting Document(s) Thyrotropin [Units/volume] in Serum or Plasma 30.700 uIU/ML 0.358-3.7 40 MEDENT ([facility]) ID Date Data Source TOTAL PROTEIN,RANDOM URINE 06/08/2020 12:00:00 AM EST eCW1 ( [facility]) Name Value Range Interpretation Code Description Data Wilma rce(s) Supporting Document(s) 164.4 0.0-12.0 eCW1 ([facility]) ID Date Data Source MAGNESIUM LEVEL 06/08/2020 12:00:00 AM EST eCW1 ([facility]) Name Value Range Interpretation Code Description Data Wilma rce(s) Supporting Document(s) 2.9 1.8-2.4 eCW1 ([facility]) ID Date Data Source URINE CULTURE 06/08/2020 12:00:00 AM EST eCW1 ([facility]) Name Value Range Interpretation Code Description Data Wilma rce(s) Supporting Document(s) eCW1 ([facility]) ID Date Data Source FREE T4 & TSH PANEL 06/08/2020 12:00:00 AM EST eCW1 ([facility]) Name Value Range Interpretation Code Description Data Wilma rce(s) Supporting Document(s) 0.81 0.76-1.46 FREE T4 eCW1 ([facility]) 32.600 0.358-3.740 THYROID STIMULATING HORM ONE eCW1 ([facility]) ID Date Data Source Comprehensive Metabolic Profile (CMP) 06/08/2020 12:00:00 AM EST eCW1 ([facility]) Name Value Range Interpretation Code Description Data Wilma rce(s) Supporting Document(s) 84 70-100 GLUCOSE, FASTING eCW1 ([facility]) 10 7-18 BLOOD UREA NITROGEN eCW1 ([facility]) 57.1 >51 GLOMERULAR FILTRATION RATE eCW 1 ([facility]) 138 136-145 SODIUM LEVEL eCW1 ([facility]) 4.2 3.5-5.1 POTASSIUM SERUM eCW1 ([facility]) 109 98-107 CHLORIDE LEVEL eCW1 ([facility]) 1.05 0.55-1.30 CREATININE FOR GFR eCW1 ([facility]) 41 7-37 AST/SGOT eCW1 ([facility]) 9.4 8.5-10.1 CALCIUM LEVEL eCW1 ([facility]) 64 12-78 ALT/SGPT eCW1 ([facility]) 147 45-117 ALKALINE PHOSPHATASE eCW1 ([facility]) 26 21-32 CARBON DIOXIDE LEVEL eCW1 ([facility]) 0.6 0.2-1.0 BILIRUBIN,TOTAL eCW1 ([facility]) 1.4 1.2-2.2 ALBUMIN/GLOBULIN RATIO eCW1 ([facility]) 3.9 3.2-5.2 ALBUMIN eCW1 ([facility]) 6.6 6.4-8.2 TOTAL PROTEIN eCW1 ([facility]ly [facility]) ID Date Data Source [id number] 05/10/2020 01:35:00 PM EST MEDENT ([facility]) Name Value Range Interpretation Code Description Data Wilma rce(s) Supporting Document(s) Ferritin [Mass/volume] in Serum or Plasma 131 22.0-322.0 MEDENT ([facility]) ID Date Data Source [id number] 05/10/2020 01:35:00 PM EST [facility] Name Value Range Interpretation Code Description Data Wilma rce(s) Supporting Document(s) Cobalamin (Vitamin B12) [Mass/volume] in Serum or Plasma 1507 MEDENT ([facility]) Folate 17.4 [facility] ID Date Data Source [id number] 05/10/2020 01:35:00 PM EST [facility]ENT ([facility]) Name Value Range Interpretation Code Description Data Wilma rce(s) Supporting Document(s) Free T4 0.75 MEDENT ([facility]) Magnesium Level 2.9 MEDENT ([facility]) Thyroid Stimulating Hormone 23.200 ME DENT ([facility]) ID Date Data Source [id number] 05/10/2020 01:35:00 PM EST MEDENT ([facility]) Name Value Range Interpretation Code Description Data Wilma rce(s) Supporting Document(s) Albumin [Mass/volume] in Serum or Plasma 4.0 MEDENT ([facility]) Alanine aminotransferase [Enzymatic activity/volume] in Serum or Pl asma 79 MEDENT ([facility]) Chloride [Moles/volume] in Serum or Plasma 111 MEDENT ([facility]) Carbon dioxide, total [Moles/volume] in Serum or Plasma 25 MEDENT ([facility]) Calcium [Mass/volume] in Serum or Plasma 9.2 MEDENT ([facility]) Protein [Mass/volume] in Serum or Plasma 6.6 MEDENT ([facility]) Potassium [Moles/volume] in Serum or Plasma 4.5 MEDENT ([facility]) Alkaline phosphatase [Enzymatic activity/volume] in Serum or Plasma 1 49 MEDENT ([facility]) Sodium 140 MEDENT ([facility]) Aspartate aminotransferase [Enzymatic activity/volume] in Serum or Plasma 58 MEDENT ([facility]) Glucose 84 70-100 MEDENT ([facility]) Urea nitrogen [Mass/volume] in Serum or Plasma 14 MEDENT ([facility]) Creatinine For GFR 0.88 MEDENT ([facility]) ID Date Data Source [id number] 05/10/2020 01:35:00 PM EST MEDENT ([facility]) Name Value Range Interpretation Code Description Data Wilma rce(s) Supporting Document(s) White Blood Count 6.7 4.3-10.9 MEDENT ([facility]) Platelets 215 130-400 MEDENT ([facility]) Red Blood Count 3.63 4.70-6.20 MEDENT ([facility]) Hemoglobin 12.1 13.0-17.0 MEDENT ([facility]) Hematocrit 37.9 39.0-50.0 MEDENT ([facility]) ID Date Data Source [id number] 05/10/2020 12:00:00 AM EST eCW1 ([facility]) Name Value Range Interpretation Code Description Data Wilma rce(s) Supporting Document(s) eCW1 ([facility]) ID Date Data Source [id number] 05/10/2020 12:00:00 AM EST eCW1 ([facility]) Name Value Range Interpretation Code Description Data Wilma rce(s) Supporting Document(s) 1507 VITAMIN B12 LEVEL eCW1 ([facility]) 17.4 FOLATE eCW1 ([facility]) ID Date Data Source [id number] 05/10/2020 12:00:00 AM EST eCW1 ([facility]) Name Value Range Interpretation Code Description Data Wilma rce(s) Supporting Document(s) 131 7-252 eCW1 ([facility]) ID Date Data Source CBC with Differential 05/10/2020 12:00:00 AM EST eCW1 ([facility]) Name Value Range Interpretation Code Description Data Wilma rce(s) Supporting Document(s) 6.7 4.0-10.0 eCW1 ([facility]) 3.63 4.00-5.40 eCW1 ([facility]) 12.1 12.0-15.5 eCW1 ([facility]) 104.4 80.0-96.0 eCW1 ([facility]) 37.9 36.0-47.0 eCW1 ([facility]) 33.3 27.0-33.0 eCW1 ([facility]) 22.8 24.0-44.0 eCW1 ([facility]) 13.0 11.5-14.5 eCW1 ([facility]) 31.9 32.0-36.5 eCW1 ([facility]) 66.9 36.0-66.0 eCW1 ([facility]) 215 150-450 eCW1 ([facility]) 5.2 0.0-5.0 eCW1 ([facility]) 4.0 0.0-3.0 eCW1 ([facility]) 4.5 1.5-8.5 eCW1 ([facility]) 1.0 0.0-1.0 eCW1 ([facility]) 0.4 0.0-0.8 eCW1 ([facility]) 1.5 1.5-5.0 eCW1 ([facility]) 0.3 0.0-0.5 eCW1 ([facility]) 0.1 0.0-0.2 eCW1 ([facility]) ID Date Data Source [id number] 04/18/2020 12:00:00 AM EST [facility] Name Value Range Interpretation Code Description Data Wilma rce(s) Supporting Document(s) SARS-CoV2 Rapid Antigen [facility] This lab was ordered by [facility] [place] and reported by [facility]. ID Date Data Source [id number] RENAL US 03/25/2020 02:32:11 AM EDT eCW1 ([facility]) Name Value Range Interpretation Code Description Data Wilma rce(s) Supporting Document(s) eCW1 ([facility]) ID Date Data Source VITAMIN [id number] 03/16/2020 06:04:11 AM EDT eCW1 ([facility]) Name Value Range Interpretation Code Description Data Wilma rce(s) Supporting Document(s) 29.8 TOTAL 25(OH) VITAMIN D eCW1 ([facility]) ID Date Data Source [id number] 07/23/2019 12:00:00 AM EST eCW1 ([facility]) Name Value Range Interpretation Code Description Data Wilma rce(s) Supporting Document(s) Microalbumin/Creatinine [Mass Ratio] in Urine 94.5 CREATININE, URINE eCW1 ([facility]) Albumin/Creatinine [Mass Ratio] in Urine 545.0 MALB URINE SIEMENS eCW1 ([facility]) Microalbumin/Creatinine [Ratio] in Urine 576.7 0.0-30.0 SYBIL/CREAT RATIO eCW1 ([facility]) ID Date Data Source CBC - Complete Blood Count 07/23/2019 12:00:00 AM EST eCW1 ( [facility]) Name Value Range Interpretation Code Description Data Wilma rce(s) Supporting Document(s) 6.8 4.0-10.0 WHITE BLOOD COUNT eCW1 ([facility]) 3.79 4.00-5.40 RED BLOOD COUNT eCW1 ([facility]) 12.4 12.0-15.5 HEMOGLOBIN eCW1 (Replaced by [facility]) 32.7 27.0-33.0 MEAN CORPUSCULAR HEMOGLOB IN eCW1 ([facility]) 103.2 80.0-96.0 MEAN CORPUSCULAR VOLUME e CW1 ([facility]) 39.1 36.0-47.0 HEMATOCRIT eCW1 (Replaced by [facility]) 31.7 32.0-36.5 MEAN CORPUSCULAR HGB CONC eCW1 ([facility]) 12.8 11.5-14.5 RED CELL DISTRIBUTION WID TH eCW1 ([facility]) 195 150-450 PLATELET COUNT, AUTOMATED eCW1 ([facility]) Procedure Social History Code Duration Value Status Description Data Source(s ) Smoking 07/15/2020 12:00:00 AM EST Never Smoker completed Never S moker eCW1 ([facility]) Smoking 06/22/2020 12:00:00 AM EST Never Smoker completed Never S moker eCW1 ([facility]) Smoking 06/09/2020 12:00:00 AM EST Patient has never smoked co mpleted Patient has never smoked MEDENT ([facility]) Smoking 06/08/2020 12:00:00 AM EST Never Smoker completed Never S moker eCW1 ([facility]) Smoking 06/08/2020 12:00:00 AM EST Never Smoker completed Never S moker eCW1 ([facility]) Smoking 06/08/2020 12:00:00 AM EST Never Smoker completed Never S moker eCW1 ([facility]) Smoking 06/08/2020 12:00:00 AM EST Never Smoker completed Never S moker eCW1 ([facility]) Smoking 05/10/2020 12:00:00 AM EST Never Smoker completed Never S moker eCW1 ([facility]) Smoking 05/10/2020 12:00:00 AM EST Never Smoker completed Never S moker eCW1 ([facility]) Smoking 03/16/2020 12:00:00 AM EDT Never Smoker completed Never S moker eCW1 ([facility]) Smoking 12/15/2019 12:00:00 AM EDT Never Smoker completed Never S moker eCW1 ([facility]) Smoking 12/15/2019 12:00:00 AM EDT Never Smoker completed Never S moker eCW1 ([facility]) Smoking 12/15/2019 12:00:00 AM EDT Never Smoker completed Never S moker eCW1 ([facility]) Smoking 11/01/2019 12:00:00 AM EDT Never Smoker completed Never S moker eCW1 ([facility]) Vital Signs ID Date Data Source UNK Name Value Range Interpretation Code Description Data Source(s) Diastolic blood pressure 60 mm[Hg] 60 mm[Hg] eCW1 ([facility]) Systolic blood pressure 100 mm[Hg] 100 mm[Hg] e CW1 ([facility]) Body temperature 98.2 [degF] 98.2 [degF] eCW1 ( [facility]) Respiratory rate 18 /min 18 /min eCW1 ([facility]) Heart rate 76 /min 76 /min eCW1 ([facility]) Body mass index (BMI) [Ratio] 18.08 kg/m2 18.08 kg/m2 eCW1 ([facility]) Body height 66 [in_i] 66 [in_i] eCW1 ([facility]) Body weight 112 [lb_av] 112 [lb_av] eCW1 ([facility]) Diastolic blood pressure--standing 64 mm[Hg] 6 4 mm[Hg] MEDENT ([facility]) [place], adult cuff/Ra; HR: 54 bpm Systolic blood pressure--standing 117 mm[Hg] 11 7 mm[Hg] MEDENT ([facility]) [place], adult cuff/Ra; HR: 54 bpm Diastolic blood pressure--supine 60 mm[Hg] 60 mm[Hg] MEDENT ([facility]) [place], adult cuff/Ra; HR: 47 bpm Systolic blood pressure--supine 112 mm[Hg] 112 mm[Hg] MEDENT ([facility]) [place], adult cuff/Ra; HR: 47 bpm Diastolic blood pressure--sitting 59 mm[Hg] 59 mm[Hg] MEDENT ([facility]) [place], adult cuff/Ra; HR: 48 bpm Systolic blood pressure--sitting 106 mm[Hg] 106 mm[Hg] MEDENT ([facility]) [place], adult cuff/Ra; HR: 48 bpm Heart rate 48 /min 48 /min MEDENT ([facility]) Body mass index (BMI) [Ratio] 17.4 kg/m2 17.4 k g/m2 [facility] Body height 66 [in_i] 66 [in_i] MEDENT ([facility]) 5'6" Body weight 108.00 [lb_av] 108.00 [lb_av] MEDEN T ([facility]) Diastolic blood pressure 70 mm[Hg] 70 mm[Hg] eCW1 ([facility]) Systolic blood pressure 110 mm[Hg] 110 mm[Hg] e CW1 ([facility]) Body temperature 97.8 [degF] 97.8 [degF] eCW1 ( [facility]) Respiratory rate 18 /min 18 /min eCW1 ([facility]) Heart rate 50 /min 50 /min eCW1 ([facility]) Body mass index (BMI) [Ratio] 17.75 kg/m2 17.75 kg/m2 eCW1 ([facility]) Body height 66 [in_i] 66 [in_i] eCW1 ([facility]) Body weight 110 [lb_av] 110 [lb_av] eCW1 ([facility]) Diastolic blood pressure 70 mm[Hg] 70 mm[Hg] eCW1 ([facility]) Systolic blood pressure 120 mm[Hg] 120 mm[Hg] e CW1 ([facility]) Body temperature 97.5 [degF] 97.5 [degF] eCW1 ( [facility]) Respiratory rate 18 /min 18 /min eCW1 ([facility]) Heart rate 59 /min 59 /min eCW1 ([facility]) Body mass index (BMI) [Ratio] 17.91 kg/m2 17.91 kg/m2 W1 ([facility]) Body height 66 [in_i] 66 [in_i] eCW1 ([facility]) Body weight 111 [lb_av] 111 [lb_av] eCW1 ([facility]) Diastolic blood pressure 70 mm[Hg] 70 mm[Hg] eCW1 ([facility]) Systolic blood pressure 110 mm[Hg] 110 mm[Hg] e CW1 ([facility]) Body temperature 97.5 [degF] 97.5 [degF] eCW1 ( [facility]) Respiratory rate 18 /min 18 /min eCW1 ([facility]) Heart rate 64 /min 64 /min eCW1 ([facility]) Body mass index (BMI) [Ratio] 18.72 kg/m2 18.72 kg/m2 eCW1 ([facility]) Body height 66 [in_i] 66 [in_i] eCW1 ([facility]) Body weight 116 [lb_av] 116 [lb_av] eCW1 ([facility]) Diastolic blood pressure 70 mm[Hg] 70 mm[Hg] eCW1 ([facility]) Systolic blood pressure 118 mm[Hg] 118 mm[Hg] e CW1 ([facility]) Body temperature 98.0 [degF] 98.0 [degF] eCW1 ( [facility]) Respiratory rate 16 /min 16 /min eCW1 ([facility]) Heart rate 60 /min 60 /min eCW1 ([facility]) Body mass index (BMI) [Ratio] 19.85 kg/m2 19.85 kg/m2 eCW1 ([facility]) Body height 66 [in_i] 66 [in_i] eCW1 ([facility]) Body weight 123 [lb_av] 123 [lb_av] eCW1 ([facility]) Diastolic blood pressure 68 mm[Hg] 68 mm[Hg] eCW1 ([facility]) Systolic blood pressure 106 mm[Hg] 106 mm[Hg] e CW1 ([facility]) Body temperature 97.8 [degF] 97.8 [degF] eCW1 ( [facility]) Respiratory rate 16 /min 16 /min eCW1 ([facility]) Heart rate 58 /min 58 /min eCW1 ([facility]) Body mass index (BMI) [Ratio] 20.82 kg/m2 20.82 kg/m2 eCW1 ([facility]) Body height 66 [in_i] 66 [in_i] eCW1 ([facility]) Body weight 129.0 [lb_av] 129.0 [lb_av] eCW1 ([facility]) Diastolic blood pressure 72 mm[Hg] 72 mm[Hg] eCW1 ([facility]) Systolic blood pressure 108 mm[Hg] 108 mm[Hg] e CW1 ([facility]) Body mass index (BMI) [Ratio] 20.98 kg/m2 20.98 kg/m2 eCW1 ([facility]) Body height 66 [in_us] 66 [in_us] eCW1 ([facility]) Body weight Measured 130 [lb_av] 130 [lb_av] eC W1 ([facility]) Diastolic blood pressure 72 mm[Hg] 72 mm[Hg] eCW1 ([facility]) Systolic blood pressure 108 mm[Hg] 108 mm[Hg] e CW1 ([facility]) Body temperature 97.3 [degF] 97.3 [degF] eCW1 ( [facility]) Respiratory rate 18 /min 18 /min eCW1 ([facility]) Heart rate 74 /min 74 /min eCW1 ([facility]) Body mass index (BMI) [Ratio] 20.98 kg/m2 20.98 kg/m2 eCW1 ([facility]) Body height 66 [in_us] 66 [in_us] eCW1 ([facility]) Body weight Measured 130.0 [lb_av] 130.0 [lb_av ] eCW1 ([facility]) Diastolic blood pressure 68 mm[Hg] 68 mm[Hg] eCW1 ([facility]) Systolic blood pressure 110 mm[Hg] 110 mm[Hg] e CW1 ([facility]) Body temperature 95.5 [degF] 95.5 [degF] eCW1 ( [facility]) Respiratory rate 18 /min 18 /min eCW1 ([facility]) Heart rate 64 /min 64 /min eCW1 ([facility]) Body mass index (BMI) [Ratio] 20.01 kg/m2 20.01 kg/m2 eCW1 ([facility]) Body height 66 [in_us] 66 [in_us] eCW1 ([facility]) Body weight Measured 124.0 [lb_av] 124.0 [lb_av ] eCW1 ([facility]) Heart rate 68 /min 68 /min eCW1 ([facility]) Body mass index (BMI) [Ratio] 20.50 kg/m2 20.50 kg/m2 eCW1 ([facility]) Body height 66 [in_us] 66 [in_us] eCW1 ([facility]) Body weight Measured 127.0 [lb_av] 127.0 [lb_av ] eCW1 ([facility]) Diastolic blood pressure 72 mm[Hg] 72 mm[Hg] eCW1 ([facility]) Systolic blood pressure 114 mm[Hg] 114 mm[Hg] e CW1 ([facility]) Body temperature 98.4 [degF] 98.4 [degF] eCW1 ( [facility]) Respiratory rate 18 /min 18 /min eCW1 ([facility]) Patient Treatment Plan of Care Planned Activity Planned Date Details Description Data Source (s) Ondansetron 4 MG Oral Tablet 07/15/2020 12:00:00 AM EST eCW1 ([facility]) Levothyroxine Sodium 0.025 MG Oral Tablet 07/15/2020 12:00:00 AM ES T eCW1 ([facility]) Clotrimazole 10 MG Oral Lozenge 07/15/2020 12:00:00 AM EST eCW1 ([facility]) topiramate 25 MG Oral Tablet 07/15/2020 12:00:00 AM EST eCW1 ([facility]) Famotidine 40 MG Oral Tablet 06/08/2020 12:00:00 AM EST eCW1 ([facility]) Famotidine 40 MG Oral Tablet 06/08/2020 12:00:00 AM EST eCW1 ([facility]) Famotidine 40 MG Oral Tablet 06/08/2020 12:00:00 AM EST eCW1 ([facility]) Famotidine 40 MG Oral Tablet 06/08/2020 12:00:00 AM EST eCW1 ([facility]) Levothyroxine Sodium 0.025 MG Oral Tablet 05/11/2020 12:00:00 AM ES T eCW1 ([facility]) Levothyroxine Sodium 0.025 MG Oral Tablet 05/11/2020 12:00:00 AM ES T eCW1 ([facility]) Levothyroxine Sodium 0.025 MG Oral Tablet 05/11/2020 12:00:00 AM ES T eCW1 ([facility]) Levothyroxine Sodium 0.025 MG Oral Tablet 05/11/2020 12:00:00 AM ES T eCW1 ([facility]) Levothyroxine Sodium 0.025 MG Oral Tablet 05/11/2020 12:00:00 AM ES T eCW1 ([facility]) Levothyroxine Sodium 0.025 MG Oral Tablet 05/11/2020 12:00:00 AM ES T eCW1 ([facility])
[2020-07-19 15:32] LABS: ALBUMIN 4.1 GM/DL (3.2-5.2); ALT/SGPT 51 U/L (12-78); AMYLASE 70 U/L (25-115); BILIRUBIN,DIRECT 0.2 MG/DL (0.0-0.2); BILIRUBIN,TOTAL 0.3 MG/DL (0.2-1.0); BLOOD UREA NITROGEN 15 MG/DL (7-18); CALCIUM LEVEL 9.4 MG/DL (8.5-10.1); CARBON DIOXIDE LEVEL 22 MEQ/L (21-32); CHLORIDE LEVEL 108 MEQ/L (98-107); CK-MB VALUE MASS < 1.0 NG/ML (<3.6); CPK CREATINE PHOSPHOKINASE 41 U/L (26-192); CREATININE FOR GFR 1.08 MG/DL (0.55-1.30); GLOMERULAR FILTRATION RATE 55.3 (>51); GLUCOSE, FASTING 96 MG/DL (70-100); LIPASE 185 U/L (73-393); MB/CK RELATIVE INDEX 2.44 (< OR =4); POTASSIUM SERUM 4.2 MEQ/L (3.5-5.1); SODIUM LEVEL 137 MEQ/L (136-145); TOTAL PROTEIN 6.8 GM/DL (6.4-8.2); TROPONIN I < 0.02 NG/ML (< 0.10)
[2020-07-19] MEDS: GASTROGRAFIN SOLUTION 30ML PO SCH ×2 (15:41→16:30)
[2020-07-19] MEDS ORDERED: KETOROLAC 30 MG/ML 1ML VIAL IV ONE (15:45)
[2020-07-19] MEDS ORDERED: ISOVUE-370 76% 100ML VIAL As Ordered ONE (18:00)
--- NOTE | 2020-07-19 18:45 | REPVR ---
PROCEDURE INFORMATION: Exam: CT Abdomen And Pelvis With Contrast Exam date and time: 07/19/2020 6:05 PM Age: 59 years old Clinical indication: Abdominal pain; Additional info: Rlq pain, 10lbs wt loss 10 days, n/v/d, gastric bypass TECHNIQUE: Imaging protocol: Computed tomography of the abdomen and pelvis with contrast. Radiation optimization: All CT scans at this facility use at least one of these dose optimization techniques: automated exposure control; mA and/or kV adjustment per patient size (includes targeted exams where dose is matched to clinical indication); or iterative reconstruction. Contrast material: ISOVUE 370; Contrast volume: 100 ml; Contrast route: INTRAVENOUS (IV); COMPARISON: CT ABD/PEL W/IV CONTRAST ONLY 01/28/2020 12:23 PM FINDINGS: Liver: There is a diffuse decrease in hepatic parenchymal density, consistent with steatosis. Periportal lucencies demonstrated, finding which can be seen in a variety conditions including CHF, hepatitis cholangitis as well as a variety of the causes to be correlated clinically. Gallbladder and bile ducts: There has been a cholecystectomy. Pancreas: Normal. No ductal dilation. Spleen: Normal. No splenomegaly. Adrenal glands: Normal. No mass. Kidneys and ureters: Normal. No hydronephrosis. Stomach and bowel: This patient is status post gastric bypass surgery. There is increased feces in the distal colon consistent with constipation. Redundant mobile cecum in the right lower quadrant. Possibility of a cecal volvulus to be excluded clinically. Appendix: No evidence of appendicitis. Intraperitoneal space: Unremarkable. No free air. No significant fluid collection. Vasculature: Unremarkable. No abdominal aortic aneurysm. Lymph nodes: Unremarkable. No enlarged lymph nodes. Urinary bladder: Unremarkable as visualized. Reproductive: Unremarkable as visualized. Bones/joints: Moderate central spinal stenosis at L2-L3, L3-L4 and severe central spinal stenosis at L4-L5. Moderate degenerative changes in the lower lumbar spine. Soft tissues: There is soft tissue edema demonstrated in the abdominal wall, flanks and buttock regions consistent with anasarca. IMPRESSION: 1. There is a diffuse decrease in hepatic parenchymal density, consistent with steatosis. 2. Periportal lucencies demonstrated, finding which can be seen in a variety conditions including CHF, hepatitis cholangitis as well as a variety of the causes to be correlated clinically. 3. There has been a cholecystectomy. 4. This patient is status post gastric bypass surgery. 5. Anasarca. 6. There is increased feces in the distal colon consistent with constipation. 7. Redundant mobile cecum in the right lower quadrant. Possibility of a cecal volvulus to be excluded clinically. Electronically signed by: Miguelito Alexandre On 07/19/2020 18:45:29 PM
[2020-07-19] MEDS ORDERED: ENEMCAP PR (19:03)
[2020-07-19] MEDS ORDERED: MAGN500T6 PO (19:03)
[2020-07-19 19:20] VITALS: BP 130/60
--- NOTE | 2020-07-19 19:53 | ECGEPIP ---
[facility] - ED Test Date: 2020-07-19 Pat Name: VIPIN HAGER Department: Room: - Gender: Female [employer]: : 1960 Requested By: JANI Tran PA-C Order Number: [id number] Reading MD: Claude Wang Measurements Intervals [place] Rate: 45 P: 59 ID: [id number] QRS: 39 QRSD: 94 T: 39 QT: 510 QTc: 441 Interpretive Statements Sinus bradycardia SIMILAR TO 01/28/20 Electronically Signed on 07-19-2020 19:52:36 EST by Claude Wang
--- NOTE | 2020-07-21 14:17 | ED PDOC ---
Post-Departure Follow-Up radiology report faxed to Blanka Garrison MD Jul 21, 2020 14:17
== END 2020-07-19 19:48 | disposition home or self-care (01) ==
LOC: M ED 13:53
DX: K59.00 Constipation, unspecified (principal); R60.1 Generalized edema; E03.9 Hypothyroidism, unspecified; F41.9 Anxiety disorder, unspecified; F31.9 Bipolar disorder, unspecified; I10 Essential (primary) hypertension; Z98.84 Bariatric surgery status
CPT/HCPCS: 74177; 80048; 80076; 81001; 82150; 82550; 82553; 83605; 83690; 85025; 85610; 85730; 93005; 96361; 96374; 96375; 99284; J1885; J2405; Q9963; Q9967

== ENCOUNTER 2020-08-04 18:39 | Inpatient (IN) | payer OTHER ==
[~2020-08-04] VITALS: Ht 167.6 cm; Wt 42.6 kg
[~2020-08-04 18:39] MED LIST changes: +ENEMCAP PR; +MAGN500T6 PO; +PRIS100T PO
[2020-08-04] MEDS ORDERED: ZIPR20CA21 (18:48)
[2020-08-04] MEDS ORDERED: NS 1,000 ML IV ONE ×2 (19:50→22:00)
--- NOTE | 2020-08-04 20:16 | REPVR ---
PROCEDURE INFORMATION: Exam: CT Head Without Contrast Exam date and time: 08/04/2020 7:58 PM Age: 59 years old Clinical indication: Altered mental status/memory loss TECHNIQUE: Imaging protocol: Computed tomography of the head without contrast. Radiation optimization: All CT scans at this facility use at least one of these dose optimization techniques: automated exposure control; mA and/or kV adjustment per patient size (includes targeted exams where dose is matched to clinical indication); or iterative reconstruction. COMPARISON: No relevant prior studies available. FINDINGS: Brain: No intracranial hemorrhage or extra-axial fluid collection. No evidence of mass effect or midline shift. Hernandez-white matter differentiation is intact. Cerebral ventricles: No ventriculomegaly. Bones/joints: No acute osseus lesion or fracture. Paranasal sinuses: Visualized sinuses are unremarkable. No fluid levels. Mastoid air cells: Unremarkable. Soft tissues: Unremarkable. IMPRESSION: No acute intracranial pathology. Electronically signed by: Ariel Smith On 08/04/2020 20:16:43 PM
[2020-08-04 20:28] LABS: BASO % 0.3 % (0.0-1.0); EOS # 0.4 10^3/uL (0.0-0.5); EOS % 2.9 % (0.0-3.0); HEMATOCRIT 35.6 % (36.0-47.0); HEMOGLOBIN 11.3 g/dl (12.0-15.5); LYMPH % 15.8 % (24.0-44.0); MEAN CORPUSCULAR HEMOGLOBIN 31.9 pg (27.0-33.0); MEAN CORPUSCULAR HGB CONC 31.7 g/dl (32.0-36.5); MEAN CORPUSCULAR VOLUME 100.6 fl (80.0-96.0); MONO # 0.6 10^3/uL (0.0-0.8); MONO % 4.4 % (2.0-8.0); NEUTROPHILS # 9.6 10^3/uL (1.5-8.5); NEUTROPHILS % 76.2 % (36.0-66.0); PLATELET COUNT, AUTOMATED 265 10^3/uL (150-450); RED BLOOD COUNT 3.54 10^6/uL (4.00-5.40); WHITE BLOOD COUNT 12.6 10^3/uL (4.0-10.0)
--- NOTE | 2020-08-04 20:30 | REPVR ---
PROCEDURE INFORMATION: Exam: XR Chest Exam date and time: 08/04/2020 8:22 PM Age: 59 years old Clinical indication: Altered mental status TECHNIQUE: Imaging protocol: XR of the chest Views: 1 view. COMPARISON: No relevant prior studies available. FINDINGS: Lungs: No focal areas of consolidation. Pleural spaces: Unremarkable. No pleural effusion. No pneumothorax. Heart/Mediastinum: Cardiac and mediastinal silhouettes are unremarkable. Bones/joints: No acute osseus lesion or fracture. IMPRESSION: No acute cardiopulmonary findings. Electronically signed by: Ariel Smith On 08/04/2020 20:30:31 PM
[2020-08-04 21:15] LABS: OSMOLALITY SERUM 302 MOSM/KG (275-295)
[2020-08-04 21:51] LABS: ACETAMINOPHEN LEVEL 3.6 UG/ML (10.0-30.0); ALBUMIN 3.7 GM/DL (3.2-5.2); ALT/SGPT 36 U/L (12-78); BILIRUBIN,DIRECT 0.1 MG/DL (0.0-0.2); BILIRUBIN,TOTAL 0.3 MG/DL (0.2-1.0); BLOOD UREA NITROGEN 49 MG/DL (7-18); CALCIUM LEVEL 8.8 MG/DL (8.5-10.1); CARBON DIOXIDE LEVEL 20 MEQ/L (21-32); CHLORIDE LEVEL 110 MEQ/L (98-107); CK-MB VALUE MASS 1.1 NG/ML (<3.6); CPK CREATINE PHOSPHOKINASE 34 U/L (26-192); CREATININE FOR GFR 4.04 MG/DL (0.55-1.30); ETHYL ALCOHOL (ETHANOL) < 0.003 % (0.000-0.010); GLOMERULAR FILTRATION RATE 12.1 (>51); GLUCOSE, FASTING 94 MG/DL (70-100); MB/CK RELATIVE INDEX 3.24 (< OR =4); POTASSIUM SERUM 4.5 MEQ/L (3.5-5.1); SALICYLATE LEVEL < 1.7 MG/DL (5.0-30.0); SODIUM LEVEL 139 MEQ/L (136-145); THYROID STIMULATING HORMONE 0.564 uIU/ML (0.358-3.740); TOTAL PROTEIN 6.3 GM/DL (6.4-8.2); TROPONIN I < 0.02 NG/ML (< 0.10)
[2020-08-04 21:54] LABS: LITHIUM LEVEL 3.24 MEQ/L (0.60-1.20)
[2020-08-04 22:08] LABS: AMPHETAMINES LEVEL URINE NEGATIVE (NEGATIVE); BARBITURATES URINE NEGATIVE (NEGATIVE); BENZODIAZEPINES URINE NEGATIVE (NEGATIVE); CANNABINOIDS URINE NEGATIVE (NEGATIVE); COCAINE METABOLITE URINE NEGATIVE (NEGATIVE); METHADONE URINE NEGATIVE (NEGATIVE); OPIATES URINE NEGATIVE (NEGATIVE); PHENCYCLIDINE URINE NEGATIVE (NEGATIVE)
[2020-08-04 22:17] LABS: THYROXINE (T4) 8.6 UG/DL (4.5-12.0)
[2020-08-04] MEDS ORDERED: THIAMINE 100 MG TAB PO ONE (22:55)
[2020-08-04] MEDS ORDERED: CLOT10TR PO (23:19)
[2020-08-04] MEDS ORDERED: LOTR52CA PO (23:19)
[2020-08-04] MEDS ORDERED: D31000TA2 PO (23:19)
[2020-08-04] MEDS ORDERED: ZINC1TAB2 PO (23:19)
[2020-08-04] MEDS ORDERED: LEVO2TA PO (23:19)
[2020-08-04] MEDS ORDERED: C 50TAB PO (23:19)
[2020-08-05] VITALS (15 sets, daily range): BP systolic 68–117; BP diastolic 44–58
[2020-08-05] MEDS ORDERED: SODIUM CHLORIDE 0.9% 1000ML IV PRN (00:10)
[2020-08-05 00:35] LABS: RSV AMPLIFICATION NEGATIVE (NEGATIVE)
--- NOTE | 2020-08-05 00:47 | HPEPDOC ---
[facility] Medical History & Physical Date of Admission Aug 04, 2020 Date of Service: Aug 04, 2020 Primary Care Physician: ASHLEY HUFF NP Attending Physician: MANI COSTA MD History and Physical CHIEF COMPLAINT: Dizziness x2 weeks HISTORY OF PRESENT ILLNESS: Patient is a 59-year-old female with past medical history significant for bip olar disorder, hypertension, hypothyroid, hyperparathyroid and gastric bypass who is presenting to the emergency department the evening of 08/04/20 at the behest of her daughter. Patient reports that she has had a one to 2 month history of nausea and vomiting and weight loss but over the last 1 week this has become increasingly more severe. She states that she has neither been taking her medications nor eating or drinking secondary to the nausea and vomiting. Denies any diarrhea. She also states that over the last week she has become "or confused and foggy". She reports increasing blurry vision and even admits to visual hallucinations, particularly "shapes that are not there ". She shares th at today she was also extremely weak and "unstable" on her feet, only able to stand for short amount time. Patient reports that her daughter saw her today and noted her behavior to be out of the ordinary and convinced her to come to the emergency department for evaluation. Upon presentation to the emergency department, she was found to be afebrile, bradycardic with a pulse of 42, respiratory of 14, hypotensive with a blood pressure of 75/49 and maintaining an appropriate oxygen saturation on room air. CBC demonstrates a leukocytosis of 12.6, H/H of 11.3/35.6. Macrocytosis with an MCV of 100.6, normal RDW, normal platelets. Electrolytes within normal limits, BUN/Cr of 49/4.04 and a GFR of 12.1. Most concerning, patient was found to have a lithium level of 3.24. Toxicology and nephrology were contacted, both in agreement that the patient requires emergent dialysis. Hospitalist team was co ntacted to admit the patient for medical management. PAST MEDICAL HISTORY: Hypertension Migraines, without aura Hypothyroid, status post ablation with MOCTEZUMA, mention 85 Bipolar with major depression Eating disorder, S/P bariatric surgery Hyperparathyroid Vitamin D deficiency Ventral hernia Microalbuminemia Osteopenia PAST SURGICAL HISTORY: Gastric bypass, 2012 Left knee replacement, 2014 Cholecystectomy, 1994 , 1994 Appendectomy, 2014 Uterine ablation, 2000 Colonoscopy, 2017 SOCIAL HISTORY: Marital status: Resides in: On home, [place] Children: 2 sons, 1 daughter Employment: Disabled Tobacco use: Nonsmoker ETOH: Denies alcohol use Illicit drug use: Denies illicit drug use including marijuana FAMILY HISTORY: Father: Alive, 91 years, hypertension Mother: Alive, 86 years, breast cancer in 60s, hypertension Siblings: Brother, , [place] at age 60, other brother, living, diabetes mellitus Children: 2 sons and 1 daughter, healthy ALLERGIES: Please see below. REVIEW OF SYSTEMS: Patient is a poor historian CONSTITUTIONAL: Reports that she has been struggling with weight loss since her bariatric surgery. Has attempted to increase caloric intake with ensure supplementation through she has continued to have a decreased appetite, nausea and vomiting. Reports coexistent generalized fatigue and malaise. Denies any fever or chills or night sweats. HEENT: There is a history of migraines, none at time of admission, does report changes in her vision over the last week reports "seeing things that are not there ", particularly shapes. Also reports intermittent blurry vision. CARDIOVASCULAR: Denies any chest pain or pressure, no palpitations RESPIRATORY: Denies any shortness of breath, cough or wheeze, no orthopnea or PND GASTROINTESTINAL: Patient states that she has had baseline levels of nausea and vomiting for the last 2 months, though she reports it has been acutely worse over the last 1-2 weeks. Denies any diarrhea. GENITOURINARY: Long-standing history of nausea and vomiting associated weight loss SKIN: Denies any skin changes including bruising, rashes or new/changing lesions MUSCULOSKELETAL: Denies any muscle/joint aches or pains NEUROLOGICAL: Reports generalized weakness, light-headedness, unsteadiness for the last 1 week drowsiness PSYCHIATRIC: Reports history of depression and anxiety, bipolar disease, recent worsening of depression HOME MEDICATIONS: Please see below. PHYSICAL EXAMINATION: VITAL SIGNS: Please see below GENERAL APPEARANCE: Patient interviewed and examined in the emergency department. Patient was found to be relaxing comfortably in bed, did not appear in any acute distress. 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 Patient's daughter is at bedside. HEENT: Normocephalic, atraumatic, EOMI, PERRLA sclera nonicteric, no JVD, mucous membranes appear dry CARDIOVASCULAR: Bradycardic, regular rhythm, no appreciable murmurs LUNGS: Clear to auscultation bilaterally no wheezes rales or rhonchi ABDOMEN: Scaphoid without appreciable masses or organomegaly, nontender, nondistended. MUSCULOSKELETAL: She is able to move both her upper and lower extremities equally bilaterally. No joint swelling or effusions. EXTREMITIES: No lower exam edema, no calf tenderness bilaterally, posterior tibial and radial pulses 2+ bilaterally NEUROLOGICAL: No dysphagia dysarthria, slurred speech, no facial droop, uvula and tongue are midline, cranial nerves are grossly intact, patient's strength is grossly intact and equal bilaterally. No nystagmus or tremors. PSYCHIATRIC: Patient appears visibly anxious. LABORATORY DATA: See below. IMAGING: Head CT (08/04/20): No acute intracranial pathology Chest x-ray (08/04/20): No acute cardiopulmonary findings MICROBIOLOGY: Please see below. ASSESSMENT: 59-year-old female past medical history significant for bipolar disorder, hypothyroid, hypertension hyperparathyroid, s/p gastric bypass who presented to the emergency department for her generalized weakness, persistent nausea and vomiting, confusion and vision changes. In the emergency department, patient was found to be in acute renal failure likely secondary to lithium toxicity and dehydration. Case was discussed with toxicology and nephrology were both in agreement that the patient should be admitted and receive emergent dialysis. Catheter to be placed this evening by surgery. PLAN: #[place] toxicity, lithium-associated nephropathy -[place] level of 3.24 (ULN 1.20). Pt reports not taking her medications >1 week. Last Li level of 0.9 in 03/22. -Significant dehydration 2/2 to N/V, anorexia; mostly likely worsened by Li toxicity. -Patient is also on an ARB, which can increase serum concentrations of lithium. -Bradycardia via EKG. -AKF, BUN/Cr of 49/4.04, significant decrease from BUN/Cr of 15/1.08 on 07/19/20 -Emergent dialysis recommended. Catheter to be placed by surgery. Nephrology has been consulted and will be seeing patient this evening. -ICU, IVF, Close monitoring of electrolytes, tele monitoring, neurochecks. #Bipolar Disorder, major depression -Follows outpatient with Dr. Roy -Reports being stable Li for >10 years, no history of toxicity -No psychiatric medications on Med Rec. Day team to consider discussing with psych. #Hypothyroid -TSH/T4 of 0.56/8.6 -Levothyroxine 200 mcg #HTN -Hypotensive at time of admission -Will hold home medications #Anorexia, protein calorie malnutrition -BMI of 15.1 -Patient is drinking and sure one to 2 times per day, small size 3-4 meals -Pending outpatient referral to GI DVT PROPHYLAXIS: Mechanical CODE STATUS: FULL CODE DISPO: Pending clinical improvement, anticipate > 2 night stay Vital Signs Vital Signs Date Time Temp Pulse Resp B/P (MAP) Pulse Ox O2 Delivery O2 Flow Rate FiO2 08/04/20 23:00 44 17 103/52 (69) 99 Room Air 08/04/20 18:40 97.7 Laboratory Data Labs 24H Laboratory Tests 2 08/04/20 20:09: Immature Granulocyte % (Auto) 0.4, Neutrophils (%) (Auto) 76.2H, Lymphocytes (%) (Auto) 15.8L, Monocytes (%) (Auto) 4.4, Eosinophils (%) (Auto) 2.9, Basophils (%) (Auto) 0.3, Neutrophils # (Auto) 9.6H, Lymphocytes # (Auto) 2.0, Monocytes # (Auto) 0.6, Eosinophils # (Auto) 0.4, Basophils # (Auto) 0.0, Nucleated Red Blood Cells % (auto) 0.0, Anion Gap 9, Glomerular Filtration Rate 12.1L, Osmolality 302H, Lactic Acid Level 0.8, Calcium Level 8.8, Total Bilirubin 0.3, Direct Bilirubin 0.1, Aspartate Amino Transf (AST/SGOT) 13, Alanine Aminotransferase (ALT/SGPT) 36, Alkaline Phosphatase 306H, Ammonia 14, Total Creatine Kinase 34, Creatine Kinase MB 1.1, Creatine Kinase MB Relative Index 3.24, Troponin I < 0.02, Total Protein 6.3L, Albumin 3.7, Albumin/Globulin Ratio 1.4, Thyroid Stimulating Hormone (TSH) 0.564, Thyroxine (T4) 8.6, Salicylates Level < 1.7L, Acetaminophen Level 3.6L, [place] Level 3.24*H, Ethyl Alcohol Level < 0.003 08/04/20 21:34: Urine Color WILFRED, Urine Appearance CLOUDYH, Urine pH 5.0, Urine Specific [place] 1.015, Urine Protein 2+H, Urine Glucose (UA) NEGATIVE, Urine Ketones NEGATIVE, Urine Blood NEGATIVE, Urine Nitrite NEGATIVE, Urine Bilirubin NEGATIVE, Urine Urobilinogen 0.2, Urine Leukocyte Esterase 1+H, Urine WBC (Auto) 15H, Urine RBC (Auto) 6H, Urine Hyaline Casts (Auto) 4, Urine Bacteria (Auto) NEGATIVE, Urine Squamous Epithelial Cells 6, Urine Amorphous Sediment SMALLH, Urine Mucus (Auto) SMALL, Urine Sperm (Auto) , Urine Opiates Screen NEGATIVE, Urine Methadone Screen NEGATIVE, Urine Barbiturates Screen NEGATIVE, Urine Phencyclidine Screen NEGATIVE, Urine Amphetamines Screen NEGATIVE, Urine Benzodiazepines Screen NEGATIVE, Urine Cocaine Metabolite Screen NEGATIVE, Urine Cannabinoids Screen NEGATIVE CBC/BMP Laboratory Tests 08/04/20 20:09 Microbiology Microbiology 08/04/20 Urine Culture, Received Pending Home Medications Scheduled Amlodipine/Benazepril (Lotrel 5-20 mg Capsule) 1 Each Capsule, 1 CAP PO QHS Ascorbic Acid (Vitamin C) 500 Mg Tablet, 500 MG PO DAILY Cholecalciferol (Vitamin D3) (Vitamin D3) 1,000 Unit Tablet, 1,000 UNITS PO DAILY Levothyroxine Sodium (Synthroid) 200 Mcg Tablet, 200 MCG PO DAILY Zinc (Zinc) 50 Mg Tablet, 50 MG PO DAILY Scheduled PRN Clotrimazole (Clotrimazole) 10 Mg Anthony, 10 MG PO 5XD PRN for THRUSH Allergies Coded Allergies: No Known Allergies (Unverified , 12/13/19) A-FIB/CHADSVASC A-FIB History Current/History of A-Fib/PAF?: No Current PO Anticoag Therapy: No GME ATTESTATION GME ATTESTATION My faculty preceptor for this patient encounter was physically present during the encounter and was fully available. All aspects of the patient interview, examination, medical decision making process, and medical care plan development were reviewed and approved by the faculty preceptor. The faculty preceptor is aware and concurs with the plan as stated in the body of this note and will attest to such by his/her cosignature. ATTENDING NOTE I have independently interviewed and examined the patient at the bedside, and agree with the physical findings, assessment, and management plan as documented above. BRITTNY RODRÍGUEZ DO Aug 05, 2020 00:47 MANI COSTA MD Aug 05, 2020 06:18
[2020-08-05] MEDS: NS 1,000 ML IV SCH ×3 (02:56→15:11)
[2020-08-05] MEDS ORDERED: CLOTRIMAZOLE 10 MG TROCHE PO PRN (06:00)
[2020-08-05] MEDS: LEVOTHYROXINE 100MCG TABLET (0.1MG) PO SCH (06:10)
[2020-08-05 06:30] LABS: HEMATOCRIT 30.8 % (36.0-47.0); HEMOGLOBIN 10.3 g/dl (12.0-15.5); MEAN CORPUSCULAR HEMOGLOBIN 32.5 pg (27.0-33.0); MEAN CORPUSCULAR HGB CONC 33.4 g/dl (32.0-36.5); MEAN CORPUSCULAR VOLUME 97.2 fl (80.0-96.0); PLATELET COUNT, AUTOMATED 191 10^3/uL (150-450); RED BLOOD COUNT 3.17 10^6/uL (4.00-5.40); WHITE BLOOD COUNT 10.1 10^3/uL (4.0-10.0)
[2020-08-05 07:47] LABS: BLOOD UREA NITROGEN 10 MG/DL (7-18); CARBON DIOXIDE LEVEL 28 MEQ/L (21-32); CHLORIDE LEVEL 105 MEQ/L (98-107); CREATININE FOR GFR 1.17 MG/DL (0.55-1.30); GLOMERULAR FILTRATION RATE 50.4 (>51); GLUCOSE, FASTING 84 MG/DL (70-100); POTASSIUM SERUM 3.2 MEQ/L (3.5-5.1); SODIUM LEVEL 139 MEQ/L (136-145)
[2020-08-05] MEDS ORDERED: NS 1,000 ML IV ONE (08:05)
[2020-08-05 08:15] LABS: LITHIUM LEVEL 0.95 MEQ/L (0.60-1.20)
--- NOTE | 2020-08-05 08:18 | ECGEPIP ---
[facility] - ED Test Date: 2020-08-04 Pat Name: VIPIN HAGER Department: Room: [place] [address] Gender: Female Clinical Review Nurse: stacey : 1960 Requested By: NATHAN LOPES Order Number: [id number] Reading MD: Blanka Williamson Measurements Intervals [place] Rate: 43 P: 62 [place]: 174 QRS: 64 QRSD: 102 T: 51 QT: 552 QTc: 466 Interpretive Statements Marked sinus bradycardia Minimal voltage criteria for LVH, may be normal variant ( Kristofer product ) Nonspecific T wave abnormality compared 07/19/20 Prolonged QT compared 07/19/20 Electronically Signed on 08-05-2020 8:18:06 EST by Blanka Williamson
[2020-08-05] MEDS: VITAMIN D 1,000 INTERNATIONAL UNITS TABLET PO SCH (08:27)
[2020-08-05] MEDS: ASCORBIC ACID 500 MG TAB PO SCH (08:27)
[2020-08-05 08:41] LABS: HEPATITIS B SURFACE ANTIBODY NEGATIVE (POSITIVE)
[2020-08-05 08:52] LABS: HEPATITIS B SURFACE ANTIGEN NEGATIVE (NEGATIVE)
[2020-08-05] MEDS ORDERED: POTASSIUM CHLORIDE 10% LIQ 20 MEQ/15 ML UDC PO ONE (09:00)
[2020-08-05 09:19] LABS: HEPATITIS C VIRUS ABY INDEX < 0.0 INDEX (<0.8)
--- NOTE | 2020-08-05 09:20 | ECGEPIP ---
[facility] Test Date: 2020-08-05 Pat Name: VIPIN HAGER Department: Room: [place] [address] Gender: Female [employer]: josé antonio : 1960 Requested By: YASMIN KIDD Order Number: [id number] Reading MD: Beverley Goetz Measurements Intervals [place] Rate: 49 P: 67 [place]: 162 QRS: 58 QRSD: 86 T: -18 QT: 564 QTc: 509 Interpretive Statements SINUS BRADYCARDIA T wave abnormality, consider ischemia PROLONGED QT INTERVAL SIMILAR TO 08/04/20, T WAVE ABNORMALITIES ARE MORE PRONOUNCED TODAY Electronically Signed on 08-05-2020 9:19:58 EST by Beverley Goetz
[2020-08-05 09:21] LABS: HEPATITIS B CORE ANTIBODY IGM NEGATIVE (NEGATIVE)
--- NOTE | 2020-08-05 11:17 | REP ---
INDICATION: acute renal failure COMPARISON: 12/11/2019 TECHNIQUE: Real time clarke scale ultrasound examination using curved array transducer. FINDINGS: Kidneys are normal in reniform shape and demonstrate mildly increased parenchymal echotexture without hydronephrosis, nephrolithiasis, cystic or renal mass lesion. Right kidney measures 10.9 x 5.3 x 5.0 cm. Left kidney measures 10.7 x 5.0 x 4.3 cm. Strickland catheter identified in collapsed bladder. IMPRESSION: 1. Mildly increased renal parenchymal echotexture should be correlated with urinalysis. 2. No hydronephrosis. <Electronically signed by Aleksandar Powers > 08/05/20 1115
--- NOTE | 2020-08-05 12:39 | CR ---
INPATIENT CONSULTATION DATE: 08/04/2020 REQUESTING PHYSICIAN: Dr. Alvino Spears. CONSULTING PHYSICIAN: Carrillo León DO. REASONS FOR CONSULTATION: 1. Acute renal failure. 2. [place] toxicity. CHIEF COMPLAINTS: 1. Confusion. 2. Slurred speech. 3. Trouble walking. HISTORY OF PRESENT ILLNESS: Ms. Patricia Chauhan is previously unknown to me. She is a 59-year-old female with a past medical history of eating disorder with laxative abuse, bipolar disorder with major depression, hypertension, hypothyroidism and other comorbid conditions mentioned below. Patient is on chronic lithium therapy and takes 450 mg of lithium daily. She came to the Emergency Room this evening with her daughter due to the daughter noting deterioration in the patient. the daughter reports that the patient has lost 20 pounds over the past 3 months and that over the past 1 week the patient has been increasingly confused, forgetful, has been having hallucinations and that she has been very weak and unable to walk and has been tremulous and having slurred speech. Her daughter was concerned and urged her to come to the Emergency Room for further evaluation of these new and worsening symptoms. In the Emergency Room the patient was found to be afebrile and persistently bradycardic with pulse in the 40s and hypotensive on arrival with initial blood pressure 89/50 with repeat 75/49. she was started on a normal saline fluid bolus and laboratory studies revealed renal failure with BUN of 49 and creatinine of 4 (patient's baseline creatinine equals 1) and the patient was found to have an elevated lithium level of 3.2 and Poison Control was called and the case was reviewed and emergent dialysis was recommended. A nephrology evaluation was requested. The patient was seen and examined by myself in the Emergency Room and she notes occasional NSAID use, but denies regular use of NSAIDs and denies any change in urination. PAST MEDICAL HISTORY: 1. CKD stage 3A with baseline creatinine of around 1. 2. Cachexia with history of eating disorder and laxative abuse. 3. Hypertension. 4. Migraines. 5. Hypothyroidism. 6. Bipolar disorder with major depression on chronic lithium. 7. Proteinuria. 8. Osteopenia. 9. Generalized anxiety disorder. 10. Panic disorder. 11. Insomnia. PAST SURGICAL HISTORY: 1. Gastric bypass in 2012. 2. Left knee replacement. 3. Cholecystectomy. 4. section. 5. Appendectomy. 6. Uterine ablation. 7. Colonoscopy. ALLERGIES: No known drug allergies. HOME MEDICATIONS: Reviewed. 1. Amlodipine/benazepril 1 cap by mouth at bedtime. 2. Vitamin C 500 mg by mouth daily. 3. Vitamin D3 1000 units by mouth daily. 4. Levothyroxine 200 mcg by mouth daily. 5. Zinc 50 mg by mouth daily. 6. Geodon three times a day with meals. 7. Pristiq 50 mg once daily. 8. Klonopin 0.5 mg four times a day. 9. Trazodone 200 mg at bedtime. 10. [place] extended release 450 mg. SOCIAL HISTORY: She is and disabled. Denies tobacco, alcohol or illicit drugs. FAMILY HISTORY: Her parents are both alive. She has a family history of hypertension. REVIEW OF SYSTEMS: She denies fevers or chills. Daughter reports that patient has lost around 20 pounds in the past 3 months. Eyes: Denies changes in vision or tearing. ENT Reports dentures. She denies odynophagia. Cardiac: Denies chest pain or palpitations. She is bradycardic. Respiratory: Denies shortness of breath or cough. Gastrointestinal: Reports poor appetite and nausea. Denies diarrhea. Genitourinary: History of proteinuria. Denies any change in urination. Musculoskeletal: Reports trouble walking and poor balance and tremors. She also has cachexia. Neurological: Confusion and slurred speech. Psychiatric: Bipolar disorder, anxiety, insomnia, depression. Neuropsychiatric: Bipolar disorder, anxiety, depression, eating disorder. Hematologic: Denies anemia or anticoagulant use. The remainder of the review of systems is negative or as per HPI. PHYSICAL EXAMINATION: Vital signs: Temperature 97.6, pulse 43, respiratory rate 18, blood pressure 107/52, saturating 99% on room air. General: Patient is seen lying in the stretcher in the Emergency Room, a very frail and cachectic appearing female, but in no apparent distress. Her daughter is at the bedside helping to supplement history. Patient is cooperative with exam and oriented to person and to place and answers simple questions appropriately. HEENT: Extraocular muscles are intact. There is significant bitemporal wasting. She has upper and lower dentures. Her tongue is dry. Neck: Supple. Jugular veins are not elevated. Heart: Sounds are regular and bradycardic. Her ribs are prominent. Lungs: Clear to auscultation bilaterally, no crackle or rale. Abdomen: Soft and nontender, bladder is not palpable and not distended. Extremities: Severe muscle wasting, no edema, no cyanosis. Neurologic: She answers simple questions appropriately. She is oriented to person and to place and to situation. Psychiatric: She appears highly anxious. LABORATORY DATA: Sodium 139, potassium 4.5, bicarbonate 20, BUN 49, creatinine 4, chloride 110. Serum osmolality 302. Ammonia 14. [place] level 3.2. White count 12.6, hemoglobin 11.3, platelets 265. Urinalysis: Specific gravity 1015, 2+ protein. RADIOLOGY STUDIES: Chest x-ray: No acute cardiopulmonary findings. INPATIENT MEDICATIONS: 1. She has received 2 liters of normal saline. She is now on normal saline at 75 mL an hour. 2. Vitamin C 500 mg by mouth daily. 3. Levothyroxine 200 mcg by mouth daily. 4. Thiamine 100 mg by mouth times 1. PROBLEMS: 1. [place] toxicity complicated by acute renal failure: Patient's lithium level is 3.2. Her case was reviewed by the ER physician with Poison Control. Given that she has acute renal failure with a creatinine of 4 and bradycardia along with neurologic symptoms a recommendation was made for urgent hemodialysis and I am in agreement with the same. Hospitalist Service is kindly arranging for dialysis catheter placement and orders are written for urgent hemodialysis overnight for extracorporeal removal of lithium. I would continue her on I.V. fluids at this time. She has received a 2 liter normal saline bolus and orders are written to continue with normal saline at 75 mL an hour. of course she is being dialyzed for clearance only without any fluid removal and I am hopeful that with 1 treatment we see a significant improvement in her lithium level, but she should continue to have serial lithium monitoring as a rebound in serum lithium level can occur after dialysis as intracellular lithium diffuses back into the extracellular space. Her dialysis treatment overnight will be for 3 and 1/2 hours. Given her borderline blood pressures we will use a relatively lower blood flow rate of 250-300 mL per minute. 2. Acute renal failure: Patient's creatinine was at baseline on July 19 (creatinine 1) and patient now has an acute renal failure with creatinine of 4 and BUN of 49. this does not fit with lithium toxicity acute or chronic and it is most likely due to a prerenal state and hypovolemia and I would continue with I.V. fluids at this time and I have also requested Strickland catheter for urine output monitoring and a renal ultrasound as well. 3. History of hypertension: Patient's blood pressures are soft, on exam she is dry. Please keep her off of all her home anti-hypertensives (amlodipine/benazepril). Continue I.V. fluids at this time. 4. Bradycardia: Patient denies a prior history of bradycardia. She is not on any rate lowering medications at home. It is possibly related to lithium toxicity. We will see how her heart rate does after dialysis and removal of lithium. Her thyroid studies were appropriate. 5. Hypovolemia in this patient with history of laxative abuse and eating disorder and recent poor oral intake and nausea: Her acute kidney injury is likely secondary to dehydration and hypovolemia and I would continue with I.V. fluids at this time and hold her anti-hypertensives. 6. Cachexia: BMI is 15.1. Patient is frail. A gentle dialysis prescription has been written and I.V. fluids should continue to run while she is being dialyzed. Critical care time spent in the coordination of the patient's care was 45 minutes. MTDD
[2020-08-05 12:44] LABS: BLOOD UREA NITROGEN 11 MG/DL (7-18); CALCIUM LEVEL 8.4 MG/DL (8.5-10.1); CARBON DIOXIDE LEVEL 28 MEQ/L (21-32); CHLORIDE LEVEL 107 MEQ/L (98-107); CREATININE FOR GFR 1.48 MG/DL (0.55-1.30); GLOMERULAR FILTRATION RATE 38.4 (>51); GLUCOSE, FASTING 100 MG/DL (70-100); POTASSIUM SERUM 3.8 MEQ/L (3.5-5.1); SODIUM LEVEL 139 MEQ/L (136-145)
--- NOTE | 2020-08-05 12:58 | IPNPDOC ---
Date Seen The patient was seen on 08/05/20. Progress Note SUBJECTIVE: Ms. Chauhan is a 59 yo F with a hx of bipolar disorder, HTN, hypothyroidism, hyperparathyroidism, gastric bypass, was brought to the ED on 08/04/20 after she developed significant gait instability, confusion as well as nausea and vomiting. Her daughter became concerned that over the past 1 week. Symptoms have been increasingly more severe. Upon arrival to the ED, she was found to be confused, bradycardic, hypotensive and found to have a lithium level of 3.24. Nephrology was consulted urgently and agreed that the patient required emergent dialysis. Poison control was also contacted. Patient was admitted to hospitalist service for medical management of intentional versus unintentional lithium overdose. Patient was seen and examined at bedside this morning. She is alert and oriented 3. She denies any suicidal ideation and denies intentional overdose with lithium effect. She states that she has not taken lithium for approximately 6 days. Patient denies any chest pain, shortness of breath, nausea, vomiting or diarrhea at this time. She still endorses some blurred vision but denies any headaches. Patient has not gotten up out of bed for fear of unsteady gait. Repeat lithium level this morning after dialysis was 0.95. Patient has been making approximately 40 mL/kg/hr. She remains hypotensive this morning, but asymptomatic. Was given an additional 1 L bolus of normal saline. She is also on maintenance normal saline as well. OBJECTIVE PHYSICAL EXAMINATION: VITAL SIGNS: please see below General: NAD, comfortable HEENT: PERRLA, EOMI, sclerae clear Neck: supple, normal ROM, no JVD Respiratory: lungs CTAB, no wheeze, no rales, no crackles CVS: RRR, normal S1, S2, no murmurs Abdo: soft, no masses, no hepatosplenomegaly, BS+, no rebound tenderness Extremities: no edema, pulses 2+ MSK: no joint deformities, normal ROM Neuro: no focal neuro deficits, moving all 4 extremities, CN2-12 intact. Strength 5/5 in all 4 extremities. No nystagmus. Psych: calm, cooperative, AAO x 3. Denies SI. LABORATORY DATA, IMAGING STUDIES, MICROBIOLOGY: Please see below. Echocardiogram: ordered on 08/05/20 Renal US (08/05/20): IMPRESSION: 1. Mildly increased renal parenchymal echotexture should be correlated with urinalysis. 2. No hydronephrosis. DVT prophylaxis ordered?: TEDs. SCDs. Heparin 5000 units q8h. ASSESSMENT AND PLAN: #Gunter toxicity, lithium-associated acute renal failure -Gunter level of 3.24 (ULN 1.20). Pt reports not taking her medications >1 week. Last Li level of 0.9 in 03/22. -Significant dehydration 2/2 to N/V, anorexia; mostly likely worsened by Li toxicity. -Patient is also on an ARB, which can increase serum concentrations of lithium. -s/p emergent dialysis on 08/04/20. Gunter level 3.24 to 0.95. -D/w Dr. León, no fluid was removed. C/w NS. -Renal US without acute changes. Chronic changes noted. -ICU, IVF, Close monitoring of electrolytes, tele monitoring, neurochecks. #hypotension - s/p 2L NS bolus in ER - patient states that her BP is typically 90s systolic - 2D echo ordered - asymptomatic - ordered additional 1L NS - c/w maintenance NS #Bradycardia - likely 2/2 lithium toxicity - improved after HD - repeat EKG showing t-wave abnormality, t wave inversion in V1-V3 - chest pain free - initial trop <0.02. - will cycle trops, monitor EKG #Prolonged QT - avoid QT prolonging meds - maintain Mg2+ above 2. #Bipolar Disorder, major depression -Follows outpatient with Dr. Roy -Reports being stable Li for >10 years, no history of toxicity -No psychiatric medications on Med Rec -Consult placed with Dr. Cisse. Suspected intentional lithium overdose - 1:1 sitter ordered #Hypothyroid -TSH/T4 of 0.56/8.6 -Levothyroxine 200 mcg #HTN -Hypotensive at time of admission -holding home medications #Anorexia, protein calorie malnutrition -BMI of 15.1 -Patient is drinking and sure one to 2 times per day, small size 3-4 meals -Pending outpatient referral to GI -Dietary consult Dispo: pending clinical improvement, psychiatric evaluation. VS, I&O, 24H, Fishbone Vital Signs/I&O Vital Signs Date Time Temp Pulse Resp B/P (MAP) Pulse Ox O2 Delivery O2 Flow Rate FiO2 08/05/20 12:00 97.2 49 20 94/52 (66) 98 Room Air I&O- Last 24 Hours up to 6 AM 08/05/20 06:00 Intake Total 3100 ml Output Total 420 ml Balance 2680 ml Laboratory Data 24H LABS Laboratory Tests 2 08/04/20 20:09: Immature Granulocyte % (Auto) 0.4, Neutrophils (%) (Auto) 76.2H, Lymphocytes (%) (Auto) 15.8L, Monocytes (%) (Auto) 4.4, Eosinophils (%) (Auto) 2.9, Basophils (%) (Auto) 0.3, Neutrophils # (Auto) 9.6H, Lymphocytes # (Auto) 2.0, Monocytes # (Auto) 0.6, Eosinophils # (Auto) 0.4, Basophils # (Auto) 0.0, Nucleated Red Blood Cells % (auto) 0.0, Anion Gap 9, Glomerular Filtration Rate 12.1L, Osmolality 302H, Lactic Acid Level 0.8, Calcium Level 8.8, Total Bilirubin 0.3, Direct Bilirubin 0.1, Aspartate Amino Transf (AST/SGOT) 13, Alanine Aminotransferase (ALT/SGPT) 36, Alkaline Phosphatase 306H, Ammonia 14, Total Creatine Kinase 34, Creatine Kinase MB 1.1, Creatine Kinase MB Relative Index 3.24, Troponin I < 0.02, Total Protein 6.3L, Albumin 3.7, Albumin/Globulin Ratio 1.4, Thyroid Stimulating Hormone (TSH) 0.564, Thyroxine (T4) 8.6, Salicylates Level < 1.7L, Acetaminophen Level 3.6L, Gunter Level 3.24*H, Ethyl Alcohol Level < 0.003 08/04/20 21:34: Urine Color WILFRED, Urine Appearance CLOUDYH, Urine pH 5.0, Urine Specific [place] 1.015, Urine Protein 2+H, Urine Glucose (UA) NEGATIVE, Urine Ketones NEGATIVE, Urine Blood NEGATIVE, Urine Nitrite NEGATIVE, Urine Bilirubin NEGAT MERCED, Urine Urobilinogen 0.2, Urine Leukocyte Esterase 1+H, Urine WBC (Auto) 15H, Urine RBC (Auto) 6H, Urine Hyaline Casts (Auto) 4, Urine Bacteria (Auto) NEGATIVE, Urine Squamous Epithelial Cells 6, Urine Amorphous Sediment SMALLH, Urine Mucus (Auto) SMALL, Urine Sperm (Auto) , Urine Opiates Screen NEGATIVE, Urine Methadone Screen NEGATIVE, Urine Barbiturates Screen NEGATIVE, Urine Phencyclidine Screen NEGATIVE, Urine Amphetamines Screen NEGATIVE, Urine Benzodiazepines Screen NEGATIVE, Urine Cocaine Metabolite Screen NEGATIVE, Urine Cannabinoids Screen NEGATIVE 08/04/20 23:50: Coronavirus (COVID-19)(PCR) NEGATIVE, Influenza Type A (RT-PCR) NEGATIVE, Influenza Type B (RT-PCR) NEGATIVE, Respiratory Syncytial Virus (PCR) NEGATIVE 08/05/20 06:20: Nucleated Red Blood Cells % (auto) 0.0, Anion Gap 6L, Glomerular Filtration Rate 50.4L, Calcium Level 8.0L, Gunter Level 0.95, Hepatitis B Surface Antigen NEGATIVE, Hepatitis B Surface Antibody NEGATIVE, Hepatitis B Core IgM Antibody NEGATIVE, Hepatitis C Antibody Index < 0.0 08/05/20 11:46: Anion Gap 4L, Glomerular Filtration Rate 38.4L, Calcium Level 8.4L, Gunter Level 1.20 CBC/BMP Laboratory Tests 08/04/20 20:09 08/05/20 06:20 08/05/20 11:46 Microbiology Microbiology 08/04/20 Urine Culture, Received Pending YASMIN KIDD MD Aug 05, 2020 12:58
[2020-08-05] MEDS: HEPARIN SOD (PORCINE) 5000UNITS/ML 1ML VIAL/SYRINGE SQ SCH ×2 (14:00→21:28)
[2020-08-05 14:32] LABS: NT-PRO BNP 920 PG/ML (<125); TROPONIN I < 0.02 NG/ML (< 0.10)
--- NOTE | 2020-08-05 16:40 | MHIPNPDOC ---
[facility] Progress Note Progress Note DATE OF SERVICE: 08/05/20 HISTORY: As per previous notes: "Ms. Chauhan is a 59 yo F with a hx of bipolar disorder, HTN, hypothyroidism, hyperparathyroidism, gastric bypass, was brought to the ED on 08/04/20 after she developed significant gait instability, confusion as well as nausea and vomiting. Her daughter became concerned that over the past 1 week. Symptoms have been increasingly more severe. Upon arrival to the ED, she was found to be confused, bradycardic, hypotensive and found to have a lithium level of 3.24. Nephrology was consulted urgently and agreed that the patient required emergent dialysis. Poison control was also contacted. Patient was admitted to hospitalist service for medical management of intentional versus unintentional lithium overdose. Patient was seen and examined at bedside this morning. She is alert and oriented 3. She denies any suicidal ideation and denies intentional overdose with lithium effect. She states that she has not taken lithium for approximately 6 days. Patient denies any chest pain, shortness of breath, nausea, vomiting or diarrhea at this time. She still endorses some blurred vision but denies any headaches. Patient has not gotten up out of bed for fear of unsteady gait. Repeat lithium level this morning after dialysis was 0.95. Patient has been making approximately 40 mL/kg/hr. She remains hypotensive this morning, but asymptomatic. Was given an additional 1 L bolus of normal saline. She is also on maintenance normal saline as well." VITAL SIGNS: See below. NEW TEST RESULTS: See below CURRENT MEDICATIONS: See below. MENTAL STATUS EXAMINATION: Patient is a 59-year old female, who is alert, cooperative, dressed in hospital gown. Speech: Is fluent, spontaneous, normal r/t/v. Language skills are intact. Thought processes including: linear and coherent. Thought content: positive for depressive and anxious thoughts, she denies suicidal thoughts but reports feeling confused and has memory lapses. Denies homicidal ideation denies thought delusions.. Abstract reasoning, and computation: she has difficulty focusing Description of associations: not loose. Description of abnormal or psychotic thoughts: denies TAV hallucinations, she is not responding to internal stimuli. Denies thought delusions Judgment: poor Insight: poor. Orientation: to place, person and situation Recent and remote memory: Poor. the patient says she can't remember seveal things happening in the last 7 days Attention span and concentration: She was able to focus Language: Adequate Fund of knowledge: Average Mood: "OK now" Affect: mildly constricted, anxious. DIAGNOSES: 1. Bipolar 1 disorder 2. Anxiety disorder. 3. Panic disorder 4. Insomnia ASSESSMENT: The patient is pleasant and cooperative, her speech is spontaneous and fluent but she says she had not taken Gorst for 6-7 days and she thought her symptoms were related to not taking this medication. When this insurance writer explained she had developed lithium toxicity, she said, "well, now that you tell me, maybe yes.....the lithium container was on my night table". According to one of Dr. Roy's notes, the patient told her she had been taking Ambien in the past and that during those times she had found herself cooking in the middle of the night and feeling confused. She was not taking Ambien anymore and Dr. Roy had prescribed her Geodon but she didn't pick it up from the pharmacy, she didn't take her Trazodone, however she had stopped taking Seroquel because she was going to start treatment with Trazodone. Apparently she was confused about her medications and she doesn't have relatives that live with her, is difficult if she doesn't have someone to supervise her medications. She says she has not had many manic episodes during her life, she reports more depressive episodes. She denies feeling hopeless, helpless and denies suicidal thoughts but she is depressed and her judgement seems to be somewhat impaired, even before th is incident, so, I think she might be dangerous to herself even if she doesn't have suicidal ideation. The case was discussed with Dr. Munoz since I had thought I was going to start her back on her Klonopin and Seroquel, since she likes the way she felt with this medication, but Dr. Jean said her ECG was abnormal, it shows a prolonged QTC and QT, so, I will postpone her psychiatric medications for now. I recommend her keeping her 1:1 sitter to make sure she is safe. I will talk with her tomorrow and will monitor her heart and kidney function hoping to re start her on her medications. MANAGEMENT PLAN: As above TIME SPENT: 30 minutes. Vital Signs Vital Signs Date Time Temp Pulse Resp B/P (MAP) Pulse Ox O2 Delivery O2 Flow Rate FiO2 08/05/20 12:00 97.2 49 20 94/52 (66) 98 Room Air Laboratory Data 24H Labs Laboratory Tests 2 08/04/20 20:09: Immature Granulocyte % (Auto) 0.4, Neutrophils (%) (Auto) 76.2H, Lymphocytes (%) (Auto) 15.8L, Monocytes (%) (Auto) 4.4, Eosinophils (%) (Auto) 2.9, Basophils (%) (Auto) 0.3, Neutrophils # (Auto) 9.6H, Lymphocytes # (Auto) 2.0, Monocytes # (Auto) 0.6, Eosinophils # (Auto) 0.4, Basophils # (Auto) 0.0, Nucleated Red Blood Cells % (auto) 0.0, Anion Gap 9, Glomerular Filtration Rate 12.1L, Osmolality 302H, Lactic Acid Level 0.8, Calcium Level 8.8, Total Bilirubin 0.3, Direct Bilirubin 0.1, Aspartate Amino Transf (AST/SGOT) 13, Alanine Aminotransferase (ALT/SGPT) 36, Alkaline Phosphatase 306H, Ammonia 14, Total Creatine Kinase 34, Creatine Kinase MB 1.1, Creatine Kinase MB Relative Index 3.24, Troponin I < 0.02, Total Protein 6.3L, Albumin 3.7, Albumin/Globulin Ratio 1.4, Thyroid Stimulating Hormone (TSH) 0.564, Thyroxine (T4) 8.6, Salicylates Level < 1.7L, Acetaminophen Level 3.6L, Gorst Level 3.24*H, Ethyl Alcohol Level < 0.003 08/04/20 21:34: Urine Color WILFRED, Urine Appearance CLOUDYH, Urine pH 5.0, Urine Specific [place] 1.015, Urine Protein 2+H, Urine Glucose (UA) NEGATIVE, Urine Ketones NEGATIVE, Urine Blood NEGATIVE, Urine Nitrite NEGATIVE, Urine Bilirubin NEGATIVE, Urine Urobilinogen 0.2, Urine Leukocyte Esterase 1+H, Urine WBC (Auto) 15H, Urine RBC (Auto) 6H, Urine Hyaline Casts (Auto) 4, Urine Bacteria (Auto) NEGATIVE, Urine Squamous Epithelial Cells 6, Urine Amorphous Sediment SMALLH, Urine Mucus (Auto) SMALL, Urine Sperm (Auto) , Urine Opiates Screen NEGATIVE, Urine Methadone Screen NEGATIVE, Urine Barbiturates Screen NEGATIVE, Urine Phencyclidine Screen NEGATIVE, Urine Amphetamines Screen NEGATIVE, Urine Benzodiazepines Screen NEGATIVE, Urine Cocaine Metabolite Screen NEGATIVE, Urine Cannabinoids Screen NEGATIVE 08/04/20 23:50: Coronavirus (COVID-19)(PCR) NEGATIVE, Influenza Type A (RT-PCR) NEGATIVE, Influenza Type B (RT-PCR) NEGATIVE, Respiratory Syncytial Virus (PCR) NEGATIVE 08/05/20 06:20: Nucleated Red Blood Cells % (auto) 0.0, Anion Gap 6L, Glomerular Filtration Rate 50.4L, Calcium Level 8.0L, Gorst Level 0.95, Hepatitis B Surface Antigen NEGATIVE, Hepatitis B Surface Antibody NEGATIVE, Hepatitis B Core IgM Antibody NEGATIVE, Hepatitis C Antibody Index < 0.0 08/05/20 11:46: Anion Gap 4L, Glomerular Filtration Rate 38.4L, Calcium Level 8.4L, Troponin I < 0.02, [id number]-[id number]-Type Natriuretic Peptide 920H, Gorst Level 1.20 CBC/BMP Laboratory Tests 08/04/20 20:09 08/05/20 06:20 08/05/20 11:46 Current Medications Current Medications Medications (Trade) Dose Ordered Sig/Paco Route PRN Reason Start Time Stop Time Status Last Admin Dose Admin Ascorbic Acid (Vitamin C) 500 mg DAILY PO 08/05/20 09:00 08/05/20 08:27 Clotrimazole (Mycelex) 10 mg 5XD PRN PO THRUSH 08/05/20 06:00 Heparin Sodium (Heparin) dose as per volume indica... ASDIRECTED PRN IV SEE LABEL COMMENTS 08/05/20 00:10 08/06/20 00:09 Heparin Sodium (Porcine) (Heparin) 5,000 units Q8H SQ 08/05/20 14:00 Home Med (Med Rec Complete!) ASDIRECTED XX 08/04/20 23:20 08/04/20 23:20 DC Levothyroxine Sodium (Synthroid) 200 mcg DAILY@0600 PO 08/05/20 06:00 08/05/20 06:10 Sodium Chloride 1,000 ml @ 100 mls/hr Q10H IV 08/05/20 00:05 08/05/20 10:27 Sodium Chloride (Nacl 0.9%) 200 ml ASDIRECTED PRN IV SEE LABEL COMMENTS 08/05/20 00:10 08/06/20 00:09 Vitamin D (Vitamin D) 1,000 units DAILY PO 08/05/20 09:00 08/05/20 08:27 Allergies Coded Allergies: No Known Allergies (Unverified , 12/13/19) JERROD ALBERT MD Aug 05, 2020 15:11
[2020-08-05] MEDS ORDERED: METOCLOPRAMIDE 5 MG TAB PO ONE (16:45)
[2020-08-05 18:28] LABS: CALCIUM LEVEL 7.9 MG/DL (8.5-10.1); CREATININE FOR GFR 1.39 MG/DL (0.55-1.30); GLOMERULAR FILTRATION RATE 41.3 (>51); LITHIUM LEVEL 1.18 MEQ/L (0.60-1.20); POTASSIUM SERUM 3.7 MEQ/L (3.5-5.1)
--- NOTE | 2020-08-05 20:28 | IPN ---
NEPHROLOGY PROGRESS NOTE DATE: 08/05/2020 SUBJECTIVE: Patricia was seen and examined this morning in the Intensive Care Unit. She remains bradycardic. Heart rate is mostly in the 40's. She was emergently dialyzed last night for 3 and a half liters with zero fluid removal and dialyzed only for clearance. Her lithium levels have improved but are noted to be slowly rising, as expected. The patient also was hypotensive this morning with systolic in the 60's to 70's but she was asymptomatic. She was bolused another liter of normal saline and she has been continued on normal saline at 100 mL an hour. She complains of nausea and a lack of appetite, but otherwise denies any new complaints. She remains afebrile. OBJECTIVE: PHYSICAL EXAMINATION: VITAL SIGNS: Temperature 97.2, pulse 49, respiratory rate 18, blood pressure 94/52, saturating 98% on room air. INTAKE AND OUTPUT: Intake has been 5 liters. Urine output thus far is 700 mL. Weight in the bed scale today is 42.5 kg. GENERAL APPEARANCE: The patient is seen lying in bed, cachectic, frail female who appears older than stated age. HEENT: The extraocular muscles are intact. There is bitemporal wasting. There are upper and lower dentures. Tongue is dry. NECK: Supple. Jugular veins are not elevated. HEART: Regular and bradycardic. Her ribs are prominent. LUNGS: Clear to auscultation bilaterally. No crackles or rales. ABDOMEN: Soft and nontender. GENITOURINARY: There is an indwelling Strickland catheter. There is a dialysis catheter in place. EXTREMITIES: No edema. Peripheral pulses are palpable. There is no clubbing or cyanosis. There is significant muscle wasting. NEUROLOGICAL: She answers simple questions appropriately and is oriented to person, place and situation. LABORATORY STUDIES: Today's laboratory studies show sodium of 139, potassium 3.8, bicarbonate 28, BUN 11, creatinine up to 1.4. Negative troponin. Hemoglobin 10.3, platelet count 191. IMAGING: Renal ultrasound August 05 showed echogenic kidneys. CURRENT INPATIENT MEDICATIONS: The patient has received 3 liters of normal saline bolus since she arrived and is on normal saline at 100 mL an hour. Heparin 5,000 units subcutaneously q. 8 hourly, Synthroid 200 mcg p.o. daily, Reglan 5 mg p.o. times one dose, Potassium Chloride 40 mEq p.o. times one dose, Thiamine 100 mg p.o. times one dose. PROBLEMS: 1. Cash toxicity complicated by acute renal failure - The patient was emergently dialyzed overnight in the setting of moderately elevated lithium level of 3.2 with change in mentation and persistent bradycardia and acute renal failure. She is continued on IV fluids at this time. She was dialyzed for clearance only without any fluid removal. She continues to have serial lithium monitoring as there is a well known rebound and serum lithium level after hemodialysis dialysis as intracellular lithium diffuses back into the extracellular space. But I am optimistic that she will not require further dialysis for her lithium levels. 2. Acute renal failure - The patient's creatinine was at baseline on July 19 (creatinine 1.0) and the patient presently has acute kidney injury, most likely secondary to dehydration and hypovolemia/hypotension. She is not oliguric. Continue with normal saline at 100 mL an hour. I have also ordered an echocardiogram in view of the hypotension. 3. Bradycardia it is persistent even after dialysis and clearance of lithium. She is not any rate lowering medications at this time. Her thyroid studies were appropriate. Her electrolytes are improved. She received a potassium supplementation. Magnesium level is pending. 4. Hypotension, status post 3 liters IV fluid - continue normal saline at 100 mL an hour. Hypotension is complicating her acute kidney injury as well. Echocardiogram is also pending. There is no lactic acidosis.
[2020-08-05] MEDS: RAMELTEON 8 MG TAB (ROZEREM) PO PRN (23:12)
[2020-08-06] VITALS (8 sets, daily range): BP systolic 92–118; BP diastolic 52–64
[2020-08-06] MEDS: NS 1,000 ML IV SCH ×2 (01:05→11:06)
[2020-08-06 05:12] LABS: HEMATOCRIT 29.2 % (36.0-47.0); HEMOGLOBIN 9.5 g/dl (12.0-15.5); MEAN CORPUSCULAR HEMOGLOBIN 32.2 pg (27.0-33.0); MEAN CORPUSCULAR HGB CONC 32.5 g/dl (32.0-36.5); PLATELET COUNT, AUTOMATED 169 10^3/uL (150-450); RED BLOOD COUNT 2.95 10^6/uL (4.00-5.40); WHITE BLOOD COUNT 8.8 10^3/uL (4.0-10.0)
[2020-08-06 05:39] LABS: BLOOD UREA NITROGEN 12 MG/DL (7-18); CALCIUM LEVEL 7.9 MG/DL (8.5-10.1); CARBON DIOXIDE LEVEL 27 MEQ/L (21-32); CHLORIDE LEVEL 111 MEQ/L (98-107); CREATININE FOR GFR 0.84 MG/DL (0.55-1.30); GLOMERULAR FILTRATION RATE > 60.0 (>51); GLUCOSE, FASTING 87 MG/DL (70-100); MAGNESIUM LEVEL 2.1 MG/DL (1.8-2.4); POTASSIUM SERUM 3.5 MEQ/L (3.5-5.1); SODIUM LEVEL 142 MEQ/L (136-145)
[2020-08-06] MEDS: LEVOTHYROXINE 100MCG TABLET (0.1MG) PO SCH (05:53)
[2020-08-06] MEDS: HEPARIN SOD (PORCINE) 5000UNITS/ML 1ML VIAL/SYRINGE SQ SCH ×3 (05:53→21:16)
[2020-08-06] MEDS ORDERED: POTASSIUM CHLORIDE 10 MEQ SR TABLET PO ONE (06:20)
[2020-08-06] MEDS: VITAMIN D 1,000 INTERNATIONAL UNITS TABLET PO SCH (11:06)
[2020-08-06] MEDS: ASCORBIC ACID 500 MG TAB PO SCH (11:06)
--- NOTE | 2020-08-06 11:54 | IPNPDOC ---
Date Seen The patient was seen on 08/06/20. Progress Note SUBJECTIVE: Ms. Chauhan is a 59 yo F with a hx of bipolar disorder, HTN, hypothyroidism, hyperparathyroidism, gastric bypass, was brought to the ED on 08/04/20 after she developed significant gait instability, confusion as well as nausea and vomiting. Her daughter became concerned that over the past 1 week. Symptoms have been increasingly more severe. Upon arrival to the ED, she was found to be confused, bradycardic, hypotensive and found to have a lithium level of 3.24. Nephrology was consulted urgently and agreed that the patient required emergent dialysis. Poison control was also contacted. Patient was admitted to hospitalist service for medical management of intentional versus unintentional lithium overdose. Patient was seen and examined at bedside this morning. She is alert and oriented 3. She denies any suicidal ideation and denies intentional overdose with lithium effect. She states that she has not taken lithium for approximately 6 days. Patient denies any chest pain, shortness of breath, nausea, vomiting or diarrhea at this time. She still endorses some blurred vision but denies any headaches. Patient has not gotten up out of bed for fear of unsteady gait. Subjective patient's daughter today in the ICU by phone names Tereza Burgess at phone number [phone]. . She reports that her mother has been struggling with her weight, as well as an eating disorder for some time. She is currently at her home and has noticed a calorie food and drinks. She is concerned that her mother has not been eating adequately. OBJECTIVE PHYSICAL EXAMINATION: VITAL SIGNS: please see below General: NAD, comfortable HEENT: PERRLA, EOMI, sclerae clear Neck: supple, normal ROM, no JVD Respiratory: lungs CTAB, no wheeze, no rales, no crackles CVS: RRR, normal S1, S2, no murmurs Abdo: soft, no masses, no hepatosplenomegaly, BS+, no rebound tenderness Extremities: no edema, pulses 2+ MSK: no joint deformities, normal ROM Neuro: no focal neuro deficits, moving all 4 extremities, CN2-12 intact. Strength 5/5 in all 4 extremities. No nystagmus. Psych: calm, cooperative, AAO x 3. Denies SI. LABORATORY DATA, IMAGING STUDIES, MICROBIOLOGY: Please see below. Echocardiogram: ordered on 08/05/20 Renal US (3/5/21): IMPRESSION: 1. Mildly increased renal parenchymal echotexture should be correlated with urinalysis. 2. No hydronephrosis. DVT prophylaxis ordered?: TEDs. SCDs. Heparin 5000 units q8h. ASSESSMENT AND PLAN: #[place] toxicity, lithium-associated acute renal failure -[place] level of 3.24 (ULN 1.20), decreased to 0.9, with reboud to 1.2, which was expected as it leaks to extracellular space -Significant dehydration 2/2 to N/V, anorexia; mostly likely worsened by Li toxicity. -s/p emergent dialysis on 08/04/20. [place] level 3.24 to 0.95. -D/w Dr. León, no fluid was removed. C/w NS. -Renal US without acute changes. Chronic changes noted. -ICU, IVF, Close monitoring of electrolytes, tele monitoring, neurochecks. #hypotension - s/p 2L NS bolus in ER - patient states that her BP is typically 90s systolic - 2D echo ordered - asymptomatic - c/w maintenance NS #Bradycardia - likely 2/2 lithium toxicity - improved after HD - repeat EKG showing t-wave abnormality, t wave inversion in V1-V3 - improved on repeat ekg on 08/06/20 - chest pain free - initial trop <0.02. - will cycle trops, monitor EKG #Prolonged QTc - avoid QT prolonging meds - maintain Mg2+ above 2. - QTc improved to 448 #Bipolar Disorder, major depression -Follows outpatient with Dr. Roy -Reports being stable Li for >10 years, no history of toxicity -No psychiatric medications on Med Rec -Consult placed with Dr. Cisse. Suspected intentional lithium overdose. Perhaps patient was confused and had taken mistakenly as well. - 1:1 sitter ordered #Hypothyroid -TSH/T4 of 0.56/8.6 -Levothyroxine 200 mcg #HTN -Hypotensive at time of admission -holding home medications #Anorexia, protein calorie malnutrition -BMI of 15.1 -Patient is drinking and sure one to 2 times per day, small size 3-4 meals -Pending outpatient referral to GI -Dietary consult Dispo: pending clinical improvement, psychiatric evaluation. VS, I&O, 24H, Fishbone Vital Signs/I&O Vital Signs Date Time Temp Pulse Resp B/P (MAP) Pulse Ox O2 Delivery O2 Flow Rate FiO2 08/06/20 04:00 98.7 48 14 98/52 (67) 98 Room Air I&O- Last 24 Hours up to 6 AM 08/06/20 06:00 Intake Total 4396 ml Output Total 1115 ml Balance 3281 ml Laboratory Data 24H LABS Laboratory Tests 2 08/05/20 17:47: Anion Gap 7L, Glomerular Filtration Rate 41.3L, Calcium Level 7.9L, Troponin I < 0.02, [place] Level 1.18 08/06/20 04:48: Anion Gap 4L, Glomerular Filtration Rate > 60.0, Calcium Level 7.9L, [place] Level 1.10, Nucleated Red Blood Cells % (auto) 0.0, Magnesium Level 2.1 CBC/BMP Laboratory Tests 08/05/20 17:47 08/06/20 04:48 Microbiology Microbiology 08/04/20 Urine Culture - Final, Complete YASMIN KIDD MD Aug 06, 2020 11:54
--- NOTE | 2020-08-06 13:34 | IPN ---
NEPHROLOGY PROGRESS NOTE DATE: 08/06/2020 SUBJECTIVE: Ms. Chauhan was admitted with altered mentation and was found to have lithium toxicity with a serum lithium level as high as 3.24 in the evening of August 04. 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 Yesterday multiple levels were repeated and they are all between 0.95 and 1.20. She has good urine output and stable renal function. This morning her BUN is 12 and creatinine 0.84. CO2 is 27. ASSESSMENT AND PLAN: [place] toxicity has completed resolved and no further nephrology follow up is needed at this point. I have advised the nursing staff to remove her dialysis catheter. The rest of her management will remain with her primary care team. Nephrology is signing off her case.
[2020-08-06] MEDS ORDERED: SLF 3 ML SYR IV PRN (18:50)
--- NOTE | 2020-08-06 18:50 | MHIPNPDOC ---
[facility] Progress Note Progress Note DATE OF SERVICE: 08/06/20 HISTORY: As per previous notes: "Ms. Chauhan is a 59 yo F with a hx of bipolar disorder, HTN, hypothyroidism, hyperparathyroidism, gastric bypass, was brought to the ED on 08/04/20 after she developed significant gait instability, confusion as well as nausea and vomiting. Her daughter became concerned that over the past 1 week. Symptoms have been increasingly more severe. Upon arrival to the ED, she was found to be confused, bradycardic, hypotensive and found to have a lithium level of 3.24. Nephrology was consulted urgently and agreed that the patient required emergent dialysis. Poison control was also contacted. Patient was admitted to hospitalist service for medical management of intentional versus unintentional lithium overdose. Patient was seen and examined at bedside this morning. She is alert and oriented 3. She denies any suicidal ideation and denies intentional overdose with lithium effect. She states that she has not taken lithium for approximately 6 days. Patient denies any chest pain, shortness of breath, nausea, vomiting or diarrhea at this time. She still endorses some blurred vision but denies any headaches. Patient has not gotten up out of bed for fear of unsteady gait. Repeat lithium level this morning after dialysis was 0.95. Patient has been making approximately 40 mL/kg/hr. She remains hypotensive this morning, but asymptomatic. Was given an additional 1 L bolus of normal saline. She is also on maintenance normal saline as well." VITAL SIGNS: See below. NEW TEST RESULTS: See below CURRENT MEDICATIONS: See below. MENTAL STATUS EXAMINATION: Patient is a 59-year old female, who is alert, cooperative, dressed in hospital gown. Speech: Is fluent, spontaneous, normal r/t/v. Language skills are intact. Thought processes including: linear and coherent. Thought content: negative for depressive thoughts, positive for some anxious thoughts, she denies suicidal thoughts, denies feeling confused today. Denies homicidal ideation denies thought delusions.. Abstract reasoning, and computation: 100-7= she said 73----. She says she doesn't want to do it because she is "not very sharp doing this". She has problems focusing. She is able to tell me what it means "don't program review director a book by its cover" Description of associations: not loose. Description of abnormal or psychotic thoughts: denies TAV hallucinations, she is not responding to internal stimuli. Denies thought delusions Judgment: poor Insight: poor. Orientation: to place,date, person and situation Recent and remote memory: Her recent and remote memory have improved Attention span and concentration: She was able to focus Language: Adequate Fund of knowledge: Average Mood: "very well" Affect: mildly constricted but not anxious. DIAGNOSES: 1. Bipolar 1 disorder 2. Anxiety disorder. 3. Panic disorder 4. Insomnia ASSESSMENT: She says she feels better, she says she feels better, she was able to get up, she had a shower. She spoke with her daughter, it made her feel better. She says she slept for about 1 hour only. Appetite is not the best, she threw up twice today but she had some broth and felt a little better. I will start her Klonopin 0.5 mgs PO TD and Seroquel [address] Munoz disussed the case with me and said her new ECG has a QT of 448, she can start some of her medications in low doses. MANAGEMENT PLAN: As above TIME SPENT: 30 minutes. Vital Signs Vital Signs Date Time Temp Pulse Resp B/P (MAP) Pulse Ox O2 Delivery O2 Flow Rate FiO2 08/06/20 16:00 99.5 53 16 115/57 (76) 98 Room Air Laboratory Data 24H Labs Laboratory Tests 2 08/06/20 04:48: Nucleated Red Blood Cells % (auto) 0.0, Anion Gap 4L, Glomerular Filtration Rate > 60.0, Calcium Level 7.9L, Magnesium Level 2.1, [place] Level 1.10 CBC/BMP Laboratory Tests 08/06/20 04:48 Current Medications Current Medications Medications (Trade) Dose Ordered Sig/Paco Route PRN Reason Start Time Stop Time Status Last Admin Dose Admin Ascorbic Acid (Vitamin C) 500 mg DAILY PO 08/05/20 09:00 08/06/20 11:06 Clotrimazole (Mycelex) 10 mg 5XD PRN PO THRUSH 08/05/20 06:00 Heparin Sodium (Heparin) dose as per volume indica... ASDIRECTED PRN IV SEE LABEL COMMENTS 08/05/20 00:10 08/06/20 00:09 DC Heparin Sodium (Porcine) (Heparin) 5,000 units Q8H SQ 08/05/20 14:00 08/06/20 14:51 Home Med (Med Rec Complete!) ASDIRECTED XX 08/04/20 23:20 08/04/20 23:20 DC Levothyroxine Sodium (Synthroid) 200 mcg DAILY@0600 PO 08/05/20 06:00 08/06/20 05:53 Ramelteon (Rozerem) 8 mg QHS PRN PO INSOMNIA 08/05/20 23:05 08/05/20 23:12 Sodium Chloride 1,000 ml @ 100 mls/hr Q10H IV 08/05/20 00:05 08/06/20 17:12 DC 08/06/20 11:06 Sodium Chloride (Nacl 0.9%) 200 ml ASDIRECTED PRN IV SEE LABEL COMMENTS 08/05/20 00:10 08/06/20 00:09 DC Vitamin D (Vitamin D) 1,000 units DAILY PO 08/05/20 09:00 08/06/20 11:06 Allergies Coded Allergies: No Known Allergies (Unverified , 12/13/19) JERROD ALBERT MD Aug 06, 2020 18:50
--- NOTE | 2020-08-06 19:01 | ECGEPIP ---
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
--- NOTE | 2020-08-06 19:02 | ECGEPIP ---
[facility] Test Date: 2020-08-06 Pat Name: VIPIN HAGER Department: Room: [place] [address] Gender: Female Manager Night: luann : 1960 Requested By: YASMIN KIDD Order Number: [id number] Reading MD: Beverley Goetz Measurements Intervals [place] Rate: 40 P: 55 [place]: 178 QRS: 46 QRSD: 90 T: 4 QT: 550 QTc: 448 Interpretive Statements Marked sinus bradycardia Nonspecific ST abnormality SINCE 08/05/20 T WAVE ABNORMALITIES ARE LESS APPARENT Electronically Signed on 08-06-2020 19:02:20 EST by Beverley Goetz
[2020-08-06] MEDS: QUEtiapine FUMARATE 50MG TAB PO SCH (20:19)
[2020-08-06] MEDS: clonazePAM 0.5 MG TAB PO SCH (20:19)
[2020-08-06] MEDS: SLF 3 ML SYR IV SCH (21:17)
[2020-08-07 04:00] VITALS: BP 94/52
[2020-08-07 05:32] LABS: HEMATOCRIT 27.4 % (36.0-47.0); HEMOGLOBIN 8.7 g/dl (12.0-15.5); MEAN CORPUSCULAR HEMOGLOBIN 31.4 pg (27.0-33.0); MEAN CORPUSCULAR HGB CONC 31.8 g/dl (32.0-36.5); MEAN CORPUSCULAR VOLUME 98.9 fl (80.0-96.0); PLATELET COUNT, AUTOMATED 138 10^3/uL (150-450); RED BLOOD COUNT 2.77 10^6/uL (4.00-5.40); WHITE BLOOD COUNT 7.5 10^3/uL (4.0-10.0)
[2020-08-07 05:52] LABS: BLOOD UREA NITROGEN 10 MG/DL (7-18); CARBON DIOXIDE LEVEL 26 MEQ/L (21-32); CHLORIDE LEVEL 116 MEQ/L (98-107); CREATININE FOR GFR 0.89 MG/DL (0.55-1.30); GLOMERULAR FILTRATION RATE > 60.0 (>51); GLUCOSE, FASTING 82 MG/DL (70-100); SODIUM LEVEL 145 MEQ/L (136-145)
[2020-08-07 05:53] LABS: CALCIUM LEVEL 8.2 MG/DL (8.5-10.1)
[2020-08-07] MEDS: LEVOTHYROXINE 100MCG TABLET (0.1MG) PO SCH (06:05)
[2020-08-07] MEDS: HEPARIN SOD (PORCINE) 5000UNITS/ML 1ML VIAL/SYRINGE SQ SCH ×3 (06:07→21:44)
[2020-08-07] MEDS: SLF 3 ML SYR IV SCH ×3 (06:08→22:00)
[2020-08-07 08:00] VITALS: BP 135/65
[2020-08-07] MEDS: clonazePAM 0.5 MG TAB PO SCH ×3 (09:28→20:02)
[2020-08-07] MEDS: ASCORBIC ACID 500 MG TAB PO SCH (09:28)
[2020-08-07] MEDS: VITAMIN D 1,000 INTERNATIONAL UNITS TABLET PO SCH (09:28)
[2020-08-07 12:00] VITALS: BP 102/59
[2020-08-07 15:49] VITALS: BP 129/58
--- NOTE | 2020-08-07 18:41 | IPNPDOC ---
Date Seen The patient was seen on 08/07/20. Progress Note SUBJECTIVE: Ms. Chauhan is a 59 yo F with a hx of bipolar disorder, HTN, hypothyroidism, hyperparathyroidism, gastric bypass, was brought to the ED on 08/04/20 after she developed significant gait instability, confusion as well as nausea and vomiting. Her daughter became concerned that over the past 1 week. Symptoms have been increasingly more severe. Upon arrival to the ED, she was found to be confused, bradycardic, hypotensive and found to have a lithium level of 3.24. Nephrology was consulted urgently and agreed that the patient required emergent dialysis. Poison control was also contacted. Patient was admitted to hospitalist service for medical management of intentional versus unintentional lithium overdose. Patient was seen and examined at bedside this morning. She is alert and oriented 3. She denies any suicidal ideation and denies intentional overdose with lithium effect. She states that she has not taken lithium for approximately 6 days. Patient denies any chest pain, shortness of breath, nausea, vomiting or diarrhea at this time. She still endorses some blurred vision but denies any headaches. Patient has not gotten up out of bed for fear of unsteady gait. OBJECTIVE PHYSICAL EXAMINATION: VITAL SIGNS: please see below General: NAD, comfortable HEENT: PERRLA, EOMI, sclerae clear Neck: supple, normal ROM, no JVD Respiratory: lungs CTAB, no wheeze, no rales, no crackles CVS: RRR, normal S1, S2, no murmurs Abdo: soft, no masses, no hepatosplenomegaly, BS+, no rebound tenderness Extremities: no edema, pulses 2+ MSK: no joint deformities, normal ROM Neuro: no focal neuro deficits, moving all 4 extremities, CN2-12 intact. Strength 5/5 in all 4 extremities. No nystagmus. Psych: calm, cooperative, AAO x 3. Denies SI. LABORATORY DATA, IMAGING STUDIES, MICROBIOLOGY: Please see below. Echocardiogram: ordered on 08/05/20 Renal US (08/05/20): IMPRESSION: 1. Mildly increased renal parenchymal echotexture should be correlated with urinalysis. 2. No hydronephrosis. DVT prophylaxis ordered?: TEDs. SCDs. Heparin 5000 units q8h. ASSESSMENT AND PLAN: #[place] toxicity, lithium-associated acute renal failure -[place] level of 3.24 (ULN 1.20), decreased to 0.9, with rebound to 1.2, which was expected as it leaks to extracellular space -Significant dehydration 2/2 to N/V, anorexia; mostly likely worsened by Li toxicity. -s/p emergent dialysis on 08/04/20. [place] level 3.24 to 0.95. -D/w Dr. León, no fluid was removed. C/w NS. Nephro signed off. Dialysis catheter removed. -Renal US without acute changes. Chronic changes noted. -ICU, IVF, Close monitoring of electrolytes, tele monitoring, neurochecks. #hypotension - s/p 2L NS bolus in ER - patient states that her BP is typically 90s systolic - 2D echo ordered - d/w Dr. Proctor (08/07/20), normal echo, final report to be published in [employer]. - asymptomatic - DC IVF, BP markedly improved #Anemia - suspect 2/2 dilution, however hgb persistently dropping despite stopping IVF - check retic count, b12, folate, iron studies - peripheral smear ordered. #Bradycardia - likely 2/2 lithium toxicity - improved after HD - repeat EKG showing t-wave abnormality, t wave inversion in V1-V3 - t wave abnormalities less pronounced on repeat ekg on 08/06/20 - chest pain free - trop negative x 3 #Prolonged QTc - avoid QT prolonging meds - maintain Mg2+ above 2. - QTc improved to 448 #Bipolar Disorder, major depression -Follows outpatient with Dr. Roy -Reports being stable Li for >10 years, no history of toxicity -No psychiatric medications on Med Rec -Consult placed with Dr. Cisse. Suspected intentional lithium overdose. Perhaps patient was confused and had taken mistakenly as well. - 1:1 sitter discontinued - Dr. Sheth started patient on klonopin 0.5 mg qhs. Seroquel 50 mg qhs. - plan for transfer to [facility] once medically stable and beds are available. #Hypothyroid -TSH/T4 of 0.56/8.6 -Levothyroxine 200 mcg #HTN -Hypotensive at time of admission -holding home medications #Anorexia, protein calorie malnutrition -BMI of 15.1 -Patient is drinking and sure one to 2 times per day, small size 3-4 meals -Pending outpatient referral to GI -Dietary consult Dispo: PT eval pending. D/w Dr. Sheth, patient will benefit from transfer to [facility] once medically stable. VS, I&O, 24H, Fishbone Vital Signs/I&O Vital Signs Date Time Temp Pulse Resp B/P (MAP) Pulse Ox O2 Delivery O2 Flow Rate FiO2 08/07/20 15:49 98.6 51 16 129/58 (81) 100 Room Air I&O- Last 24 Hours up to 6 AM 08/07/20 05:59 Intake Total 2210 ml Output Total 1400 ml Balance 810 ml Laboratory Data 24H LABS Laboratory Tests 2 08/07/20 05:09: Nucleated Red Blood Cells % (auto) 0.0, Anion Gap 3L, Glomerular Filtration Rate > 60.0, Calcium Level 8.2L CBC/BMP Laboratory Tests 08/07/20 05:09 Microbiology Microbiology 08/04/20 Urine Culture - Final, Complete YASMIN KIDD MD Aug 07, 2020 18:41
[2020-08-07 19:14] LABS: LDH LACTATE DEHYDROGENASE 121 U/L (84-246)
[2020-08-07 19:33] LABS: FERRITIN 324 NG/ML (8-252); IRON (FE) 123 UG/DL (50-170); PERCENT SATURATION 81.5 % (13.2-45.0); TOTAL IRON BINDING CAPACITY 151 UG/DL (250-450)
[2020-08-07 20:00] VITALS: BP 127/60
[2020-08-07] MEDS: QUEtiapine FUMARATE 50MG TAB PO SCH (20:02)
[2020-08-08] VITALS: BP 122/70
[2020-08-08 04:00] VITALS: BP 105/61
[2020-08-08 05:39] LABS: HEMATOCRIT 27.6 % (36.0-47.0); HEMOGLOBIN 8.9 g/dl (12.0-15.5); MEAN CORPUSCULAR HEMOGLOBIN 32.1 pg (27.0-33.0); MEAN CORPUSCULAR HGB CONC 32.2 g/dl (32.0-36.5); MEAN CORPUSCULAR VOLUME 99.6 fl (80.0-96.0); PLATELET COUNT, AUTOMATED 125 10^3/uL (150-450); RED BLOOD COUNT 2.77 10^6/uL (4.00-5.40)
[2020-08-08 05:55] LABS: BLOOD UREA NITROGEN 9 MG/DL (7-18); CALCIUM LEVEL 8.2 MG/DL (8.5-10.1); CARBON DIOXIDE LEVEL 27 MEQ/L (21-32); CHLORIDE LEVEL 118 MEQ/L (98-107); CREATININE FOR GFR 0.74 MG/DL (0.55-1.30); GLOMERULAR FILTRATION RATE > 60.0 (>51); GLUCOSE, FASTING 80 MG/DL (70-100); POTASSIUM SERUM 3.8 MEQ/L (3.5-5.1); SODIUM LEVEL 146 MEQ/L (136-145)
[2020-08-08] MEDS: LEVOTHYROXINE 100MCG TABLET (0.1MG) PO SCH (06:23)
[2020-08-08] MEDS: SLF 3 ML SYR IV SCH ×3 (06:24→22:27)
[2020-08-08] MEDS: HEPARIN SOD (PORCINE) 5000UNITS/ML 1ML VIAL/SYRINGE SQ SCH ×3 (06:24→21:24)
[2020-08-08 08:00] VITALS: BP 118/72
[2020-08-08] MEDS: ASCORBIC ACID 500 MG TAB PO SCH (08:34)
[2020-08-08] MEDS: clonazePAM 0.5 MG TAB PO SCH ×3 (08:34→21:24)
[2020-08-08] MEDS: VITAMIN D 1,000 INTERNATIONAL UNITS TABLET PO SCH (08:34)
[2020-08-08 09:35] LABS: FOLATE 20.2 NG/ML (>5.4); VITAMIN B12 LEVEL > 2000 PG/ML (247-911)
[2020-08-08 09:40] LABS: INR 1.29; PROTHROMBIN TIME 16.4 SECONDS (12.5-14.3)
[2020-08-08 09:41] LABS: PARTIAL THROMBOPLASTIN TIME 49.5 SECONDS (24.2-38.5)
[2020-08-08 09:44] LABS: D-DIMER QUANT 731.17 ng/ml (<500)
--- NOTE | 2020-08-08 10:47 | ECGEPIP ---
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
--- NOTE | 2020-08-08 10:57 | IPNPDOC ---
Date Seen The patient was seen on 08/08/20. Progress Note SUBJECTIVE: Ms. Chauhan is a 59 yo F with a hx of bipolar disorder, HTN, hypothyroidism, hyperparathyroidism, gastric bypass, was brought to the ED on 08/04/20 after she developed significant gait instability, confusion as well as nausea and vomiting. Her daughter became concerned that over the past 1 week. Symptoms have been increasingly more severe. Upon arrival to the ED, she was found to be confused, bradycardic, hypotensive and found to have a lithium level of 3.24. Nephrology was consulted urgently and agreed that the patient required emergent dialysis. Poison control was also contacted. Patient was admitted to hospitalist service for medical management of intentional versus unintentional lithium overdose. Patient was seen and examined at bedside this morning. She is alert and oriented 3. She denies any suicidal ideation and denies intentional overdose with lithium effect. Patient denies any chest pain, shortness of breath, nausea, vomiting or diarrhea at this time. She still endorses some blurred vision but denies any headaches. Working with PT, navigating stairs. OBJECTIVE PHYSICAL EXAMINATION: VITAL SIGNS: please see below General: NAD, comfortable HEENT: PERRLA, EOMI, sclerae clear Neck: supple, normal ROM, no JVD Respiratory: lungs CTAB, no wheeze, no rales, no crackles CVS: RRR, normal S1, S2, no murmurs Abdo: soft, no masses, no hepatosplenomegaly, BS+, no rebound tenderness Extremities: no edema, pulses 2+ MSK: no joint deformities, normal ROM Neuro: no focal neuro deficits, moving all 4 extremities, CN2-12 intact. Strength 5/5 in all 4 extremities. No nystagmus. Psych: calm, cooperative, AAO x 3. Denies SI. LABORATORY DATA, IMAGING STUDIES, MICROBIOLOGY: Please see below. Echocardiogram: ordered on 08/05/20 Renal US (08/05/20): IMPRESSION: 1. Mildly increased renal parenchymal echotexture should be correlated with urinalysis. 2. No hydronephrosis. DVT prophylaxis ordered?: TEDs. SCDs. Heparin 5000 units q8h. ASSESSMENT AND PLAN: #[place] toxicity, lithium-associated acute renal failure -[place] level of 3.24 (ULN 1.20), decreased to 0.9, with rebound to 1.2, which was expected as it leaks to extracellular space -Significant dehydration 2/2 to N/V, anorexia; mostly likely worsened by Li toxicity. -s/p emergent dialysis on 08/04/20. [place] level 3.24 to 0.95. -D/w Dr. León, no fluid was removed. C/w NS. Nephro signed off. Dialysis catheter removed. -Renal US without acute changes. Chronic changes noted. -ICU, IVF, Close monitoring of electrolytes, tele monitoring, neurochecks. #hypotension - s/p 2L NS bolus in ER - patient states that her BP is typically 90s systolic - 2D echo ordered - d/w Dr. Proctor (08/07/20), normal echo, final report to be published in [employer]. - asymptomatic - DC IVF, BP markedly improved #Thrombocytopenia - PLT trended down from 230 to 125 - elevated D dimer 700 - fibrinogen 210. LDH wnl - no schistocytes seen on peripheral smear. - concern for early DIC, hematology consult placed - D/w Dr. Garcia, to c/w heparin 5000 units q8h SC #Anemia - suspect 2/2 dilution, however hgb persistently dropping despite stopping IVF - check retic count, b12, folate, iron studies - peripheral smear ordered, no schistocytes - hematogy consulted, d/w Radha #Elevated D dimer - likely due to early DIC - BP normalized, no hypoxia on RA at rest or exertion, no SOB - low risk for PE, Wells score 0 - will defer CTA for now #Bradycardia - likely 2/2 lithium toxicity - improved after HD - repeat EKG showing t-wave abnormality, t wave inversion in V1-V3 - t wave abnormalities less pronounced on repeat ekg on 08/06/20 - chest pain free - trop negative x 3 - D/w Dr. Goetz, this could be attributed to lithium, although as long as patient's HR rises on exertion, no further workup is recommended - positive chronotropic response on exertion - remains asymptomatic #Prolonged QTc - avoid QT prolonging meds - maintain Mg2+ above 2. - QTc improved to 448 #Bipolar Disorder, major depression -Follows outpatient with Dr. Roy -Reports being stable Li for >10 years, no history of toxicity -No psychiatric medications on Med Rec -Consult placed with Dr. Cisse. Suspected intentional lithium overdose. Perhaps patient was confused and had taken mistakenly as well. - 1:1 sitter discontinued - Dr. Sheth started patient on klonopin 0.5 mg qhs. Seroquel 50 mg qhs. - plan for transfer to [facility] once medically stable and beds are available. #Hypothyroid -TSH/T4 of 0.56/8.6 -Levothyroxine 200 mcg #HTN -Hypotensive at time of admission -holding home medications #Anorexia, protein calorie malnutrition -BMI of 15.1 -Patient is drinking and sure one to 2 times per day, small size 3-4 meals -Pending outpatient referral to GI -Dietary consult Dispo: PT evaluated patient, recommending additional PT session. D/w Dr. Cisse, patient will benefit from transfer to [facility] once medically stable. Transfer was planned for , however due to development of cytopenia, possible DIC. Pending hematology consult. Patient transfer to [facility] will be postponed. VS, I&O, 24H, Fishbone Vital Signs/I&O Vital Signs Date Time Temp Pulse Resp B/P (MAP) Pulse Ox O2 Delivery O2 Flow Rate FiO2 08/08/20 08:00 97.1 51 16 118/72 (87) 98 Room Air 08/08/20 00:00 2.0 I&O- Last 24 Hours up to 6 AM 08/08/20 06:00 Intake Total 2110 ml Output Total 3350 ml Balance -1240 ml Laboratory Data 24H LABS Laboratory Tests 2 08/08/20 04:56: Nucleated Red Blood Cells % (auto) 0.0, Differential Slide Review Report, Peripheral Blood Smear Path Consult PERIPHERAL SMEAR, Anion Gap 1L, Glomerular Filtration Rate > 60.0, Calcium Level 8.2L 08/08/20 09:11: Prothrombin Time 16.4H, Prothromb Time International Ratio 1.29, Activated Partial Thromboplast Time 49.5H, Fibrinogen 210L, D-Dimer, Quantitative 731.17H, [place] Level 0.61 CBC/BMP Laboratory Tests 08/08/20 04:56 Microbiology Microbiology 08/04/20 Urine Culture - Final, Complete YASMIN KIDD MD Aug 08, 2020 10:57
--- NOTE | 2020-08-08 11:50 | ECHO ---
DATE OF PROCEDURE: 08/05/2020 Age: 59 years Gender: Female Height: 66 inches Weight: 94 pounds Body Surface Area: 1.46 m2 Inpatient: Room 3207 REFERRING PHYSICIAN: YASMIN KIDD MD INDICATION: Hypotension MEASUREMENTS: 2D Measurements: RV 3.7 cm LV 4.7 cm Septum 0.8 cm Posterior wall 0.8 cm Aortic Root 3.5 cm LA 3.7 cm LVEF 75% Doppler Measurements: AV - 1.71 m/s LVOT 1.14 m/s MV-E 98, A 108, E/A ratio 0.9 Early mitral deceleration time 235 ms E prime medial 9, A prime medial 8.3, E prime lateral 11 Average E/E prime ratio 9.6/PCWP - 14 mmHg PV 0.85 m/s Pulmonary artery acceleration time 124 ms PASP 26 mmHg IVC - 1.8 cm COMMENTS: Sinus bradycardia without intraventricular conduction disturbance. M-Mode and Two Dimensional Echocardiography was performed with pulse, continuous wave, color flow, and tissue Doppler studies. Normal left ventricular size, wall thickness, and hyperkinetic wall motion. Normal left atrial size with grade 1 left ventricular diastolic dysfunction, but currently normal estimated mean left atrial pressure. Normal right heart chamber sizes and motion and estimated pulmonary arterial pressure. Normal inferior vena cava (IVC) size against an elevated central venous pressure. Normal aortic dimensions. Marginally thickened three equal sized aortic cusps without functional abnormality. Normal-appearing and functioning mitral valve. Normal-appearing tricuspid valve with mild insufficiency. No apparent intracardiac mass or pericardial effusion. MTDD
[2020-08-08 12:00] VITALS: BP 144/65
--- NOTE | 2020-08-08 16:58 | MHIPNPDOC ---
[facility] Progress Note Progress Note DATE OF SERVICE: 08/08/[address] Munoz. will f/u with Dr. Lundberg tomorrow. I will start the patient on Latuda 20 mgs PO at 18:00. She needs a medication for bipolar depression. her discharge to [facility] has been postponed because her platelets are low and she could be at risk for DIC. Will follow up tomorrow. Vital Signs Vital Signs Date Time Temp Pulse Resp B/P (MAP) Pulse Ox O2 Delivery O2 Flow Rate FiO2 08/08/20 12:00 95.6 52 16 144/65 (91) 100 Room Air 08/08/20 00:00 2.0 Laboratory Data 24H Labs Laboratory Tests 2 08/08/20 04:56: Nucleated Red Blood Cells % (auto) 0.0, Differential Slide Review Report, Peripheral Blood Smear Path Consult PERIPHERAL SMEAR, Anion Gap 1L, Glomerular Filtration Rate > 60.0, Calcium Level 8.2L 08/08/20 09:11: Prothrombin Time 16.4H, Prothromb Time International Ratio 1.29, Activated Partial Thromboplast Time 49.5H, Fibrinogen 210L, D-Dimer, Quantitative 731.17H, [place] Level 0.61 CBC/BMP Laboratory Tests 08/08/20 04:56 Current Medications Current Medications Medications (Trade) Dose Ordered Sig/Paco Route PRN Reason Start Time Stop Time Status Last Admin Dose Admin Ascorbic Acid (Vitamin C) 500 mg DAILY PO 08/05/20 09:00 08/08/20 08:34 Clonazepam (KlonoPIN) 0.5 mg TID PO 08/06/20 21:00 08/08/20 15:57 Clotrimazole (Mycelex) 10 mg 5XD PRN PO THRUSH 08/05/20 06:00 Heparin Sodium (Heparin) dose as per volume indica... ASDIRECTED PRN IV SEE LABEL COMMENTS 08/05/20 00:10 08/06/20 00:09 DC Heparin Sodium (Porcine) (Heparin) 5,000 units Q8H SQ 08/05/20 14:00 08/08/20 14:43 Home Med (Med Rec Complete!) ASDIRECTED XX 08/04/20 23:20 08/04/20 23:20 DC Levothyroxine Sodium (Synthroid) 200 mcg DAILY@0600 PO 08/05/20 06:00 08/08/20 06:23 Quetiapine Fumarate (SEROquel) 50 mg QHS PO 08/06/20 21:00 08/07/20 20:02 Ramelteon (Rozerem) 8 mg QHS PRN PO INSOMNIA 08/05/20 23:05 08/05/20 23:12 Sodium Chloride 1,000 ml @ 100 mls/hr Q10H IV 08/05/20 00:05 08/06/20 17:12 DC 08/06/20 11:06 Sodium Chloride (Nacl 0.9%) 200 ml ASDIRECTED PRN IV SEE LABEL COMMENTS 08/05/20 00:10 08/06/20 00:09 DC Sodium Chloride (Saline Lock Flush) 2 ml ASDIRECTED PRN IV SEE LABEL COMMENTS 08/06/20 18:50 Sodium Chloride (Saline Lock Flush) 2 ml SLF IV 08/06/20 22:00 08/08/20 06:24 Vitamin D (Vitamin D) 1,000 units DAILY PO 08/05/20 09:00 08/08/20 08:34 Allergies Coded Allergies: No Known Allergies (Unverified , 12/13/19) JERROD ALBERT MD Aug 08, 2020 16:55
[2020-08-08 18:00] VITALS: BP 146/76
--- NOTE | 2020-08-08 18:11 | CR.PDOC ---
General Date of Consultation: Aug 08, 2020 Consultation REASON FOR CONSULTATION/CHIEF COMPLAINT: [This is a 59-year-old woman who has been referred for an evaluation of abnormal coagulation profile . The details of this patient's history of recorded in the note. Fundamentally she has a history ofa bipolar disorder with major depression and number of other comorbidities. She had been taking upto 450 mg of lithium on a daily basis. According to the history she also suffers from hyperparathyroidism has had gastric bypass. She came to the emergency room confused the lithium level was elevated at 3.2 which has subsequently declined to .61 when she was seen in the emergency room she was about to be transferred to another floor and was listening to nadia. She appeared to be well clinically and there was no evidence of bleeding or any othe r complaints noted or voiced Earlier on in the emergency room she had bradycardia and low blood pressure of 89 / 50 and repeated to 75 / 49 other issues include elevated creatinine levels of 4. Reason for consult hematology is the fact that the coagulation parameters are abnormal. the PT is 16.4 INR 1.29 APTT 49.5 fibrinogen 210 and d-dimer elevated at 731. The peripheral blood smear for schistocytes in particular is awaited]. . ALLERGIES: Please see below. HOME MEDICATIONS: Please see below. PAST MEDICAL HISTORY: 1. [She has CK D IIIa with baseline creatinine around 1 history of hypertension cachexia hypothyroidism bipolar disorder on lithium osteopenia anxiety]. PAST SURGICAL HISTORY: 1. [Gastric bypass in 2012 left knee replacement cholecystectomy section up and appendicectomy uterine ablation and colonoscopy] 2. FAMILY HISTORY: Her parents are both alive this family history of hypertension SOCIAL HISTORY: Marital status and/or living arrangements: [Patient is diagnosed disabled denies tobacco alcohol or other illicit drugs REVIEW OF SYSTEMS: She appeared to be in good shape as I examined her she was happy clear mentally lost 20 pounds according to the notes HEENT no headaches at the moment as dentures no chest pain shortness of breath palpitations. Some nausea and GI musculoskeletal essentially unremarkable although she has poor balance neurologically at the time I saw her she was clear. The remainder of the review was fundamentally negative PHYSICAL EXAMINATION: Physical examination reveals a cooperative woman sitting alert and bright in no acute distress at the moment of my examination she was in the bed managing to be transferred HEENT pupils are clinically clear and active alkaline movements of several months is normal neck supple no adenopathy abdomen soft peripheral extremities unremarkable no evidence of bruising bleeding or thrombotic findings LABORATORY DATA: Please see below. ASSESSMENT/PLAN: * Patient's hematologic findings indicate a hemoglobin of 8.9 WBC 6 platelets 125 sodium 146 chloride 118 calcium 8.2. The cause of this anemia at the present moment is not clear but is likely of multifactorial etiology. Thrombocytopenia of 125K is most probably due to consumption. The coagulopathy is likely based on consumption (DIC) although we don't have so far any data about a microangiopathic blood picture. The fibrinogen is low at 210 d-dimer elevated at 731 PT/INR slightly elevated at. Hopefully this will be a transient phenomenon as she has clinically improved considerably. In my view no transfusional therapy is warranted at this stage. In the next day or so it is likely that further improvement in the coagulation parameters will be generated. The anemia can be explained in the multifactorial manner and this c an be better assessed in a stable manner as the usual tests such as Fe profile , B12 folate etc. Franko can be ordered as a reticulocyte count. this does not appear to be a MAHA as the platelet counts would be more severely deranged. No hematologic intervention is needed per se at this time. Vital Signs/I&O Vital Signs Date Time Temp Pulse Resp B/P (MAP) Pulse Ox O2 Delivery O2 Flow Rate FiO2 08/08/20 17:10 98.7 08/08/20 12:00 52 16 144/65 (91) 100 Room Air 08/08/20 00:00 2.0 I&O- Last 24 Hours up to 6 AM 08/08/20 06:00 Intake Total 2110 ml Output Total 3350 ml Balance -1240 ml Laboratory Data Labs 24H Laboratory Tests 2 08/08/20 04:56: Nucleated Red Blood Cells % (auto) 0.0, Differential Slide Review Report, Peripheral Blood Smear Path Consult PERIPHERAL SMEAR, Anion Gap 1L, Glomerular Filtration Rate > 60.0, Calcium Level 8.2L 08/08/20 09:11: Prothrombin Time 16.4H, Prothromb Time International Ratio 1.29, Activated Partial Thromboplast Time 49.5H, Fibrinogen 210L, D-Dimer, Quantitative 731.17H, Guy Level 0.61 CBC/BMP Laboratory Tests 08/08/20 04:56 Microbiology Microbiology 08/04/20 Urine Culture - Final, Complete Allergies Coded Allergies: No Known Allergies (Unverified , 12/13/19) Home Medications Scheduled Amlodipine/Benazepril (Lotrel 5-20 mg Capsule) 1 Each Capsule, 1 CAP PO QHS, (Reported) Ascorbic Acid (Vitamin C) 500 Mg Tablet, 500 MG PO DAILY, (Reported) Cholecalciferol (Vitamin D3) (Vitamin D3) 1,000 Unit Tablet, 1,000 UNITS PO DAILY, (Reported) Levothyroxine Sodium (Synthroid) 200 Mcg Tablet, 200 MCG PO DAILY, (Reported) Zinc (Zinc) 50 Mg Tablet, 50 MG PO DAILY, (Reported) Scheduled PRN Clotrimazole (Clotrimazole) 10 Mg Anthony, 10 MG PO 5XD PRN for THRUSH, (Repor cheryl) MEHNAZ KILPATRICKCP Aug 08, 2020 18:11
[2020-08-08] MEDS: LURASIDONE 20 MG TAB (LATUDA) PO SCH (18:17)
[2020-08-08] MEDS: QUEtiapine FUMARATE 50MG TAB PO SCH (21:24)
[2020-08-08 22:00] VITALS: BP 132/68
[2020-08-09 05:52] LABS: HEMATOCRIT 26.8 % (36.0-47.0); HEMOGLOBIN 8.6 g/dl (12.0-15.5); MEAN CORPUSCULAR HEMOGLOBIN 31.7 pg (27.0-33.0); MEAN CORPUSCULAR HGB CONC 32.1 g/dl (32.0-36.5); MEAN CORPUSCULAR VOLUME 98.9 fl (80.0-96.0); PLATELET COUNT, AUTOMATED 130 10^3/uL (150-450); RED BLOOD COUNT 2.71 10^6/uL (4.00-5.40); WHITE BLOOD COUNT 5.4 10^3/uL (4.0-10.0)
[2020-08-09] MEDS: HEPARIN SOD (PORCINE) 5000UNITS/ML 1ML VIAL/SYRINGE SQ SCH ×3 (05:53→21:25)
[2020-08-09] MEDS: LEVOTHYROXINE 100MCG TABLET (0.1MG) PO SCH (05:53)
[2020-08-09] MEDS: SLF 3 ML SYR IV SCH ×3 (05:54→21:25)
[2020-08-09 06:00] VITALS: BP 111/59
[2020-08-09 06:14] LABS: BLOOD UREA NITROGEN 8 MG/DL (7-18); CALCIUM LEVEL 8.4 MG/DL (8.5-10.1); CARBON DIOXIDE LEVEL 26 MEQ/L (21-32); CHLORIDE LEVEL 115 MEQ/L (98-107); CREATININE FOR GFR 0.67 MG/DL (0.55-1.30); GLOMERULAR FILTRATION RATE > 60.0 (>51); GLUCOSE, FASTING 77 MG/DL (70-100); POTASSIUM SERUM 3.7 MEQ/L (3.5-5.1); SODIUM LEVEL 145 MEQ/L (136-145)
[2020-08-09 08:10] LABS: TOPIRAMATE LEVEL <1.0 ug/mL (2.0-25.0)
[2020-08-09] MEDS: clonazePAM 0.5 MG TAB PO SCH ×3 (08:49→20:19)
[2020-08-09] MEDS: VITAMIN D 1,000 INTERNATIONAL UNITS TABLET PO SCH (08:49)
[2020-08-09] MEDS: ASCORBIC ACID 500 MG TAB PO SCH (08:49)
[2020-08-09] MEDS ORDERED: MIRALAX *UNIT DOSE* 17GM PACKET PO PRN (11:10)
[2020-08-09] MEDS: DOCUSATE SODIUM 100MG CAPSULE PO SCH ×2 (12:04→20:20)
[2020-08-09 14:00] VITALS: BP 142/72
[2020-08-09] MEDS: LURASIDONE 20 MG TAB (LATUDA) PO SCH (17:44)
[2020-08-09] MEDS ORDERED: LACTULOSE 20 GM/30 ML SYRUP UD PO ONE (17:50)
--- NOTE | 2020-08-09 18:33 | IPNPDOC ---
Date Seen The patient was seen on 08/09/20. Progress Note SUBJECTIVE: H/H 8.11/26, PLTs slightly improved. Reticulocyte count wnl, peripheral smear no schistocytes. Discussed with Dr. Garcia, hematology. Denies chest pain, shortness of breath, n/v/d. OBJECTIVE: PHYSICAL EXAMINATION: VITAL SIGNS: please see below General: NAD, comfortable HEENT: PERRLA, EOMI, sclerae clear Neck: supple, normal ROM, no JVD Respiratory: lungs CTAB, no wheeze, no rales, no crackles CVS: RRR, normal S1, S2, no murmurs Abdo: soft, no masses, no hepatosplenomegaly, BS+, no rebound tenderness Extremities: no edema, pulses 2+ MSK: no joint deformities, normal ROM Neuro: no focal neuro deficits, moving all 4 extremities, CN2-12 intact. Strength 5/5 in all 4 extremities. No nystagmus. Psych: calm, cooperative, AAO x 3. Denies SI. LABORATORY DATA, IMAGING STUDIES, MICROBIOLOGY: Please see below. Echocardiogram: EF 75% Sinus bradycardia without intraventricular conduction disturbance. M-Mode and Two Dimensional Echocardiography was performed with pulse, sima nuouswave, color flow, and tissue Doppler studies. Normal left ventricular size, wall thickness, and hyperkinetic wall motion. Normal left atrial size with grade 1 left ventricular diastolic dysfunction, butcurrently normal estimated mean left atrial pressure. Normal right heart chamber sizes and motion and estimated pulmonary arterial pressure. Normal inferior vena cava (IVC) size against an elevated central venous pressure. Normal aortic dimensions. Marginally thickened three equal sized aortic cusps without functional abnormality. Normal-appearing and functioning mitral valve. Normal-appearing tricuspid valve with mild insufficiency. No apparent intracardiac mass or pericardial effusion. Renal US (08/05/20): IMPRESSION: 1. Mildly increased renal parenchymal echotexture should be correlated with urinalysis. 2. No hydronephrosis. ASSESSMENT AND PLAN: Sinus Bradycardia likely 2/2 lithium toxicity -HR 40's, asymptomatic -Repeat EKG showing t-wave abnormality, t wave inversion in V1-V3 -T wave abnormalities less pronounced on repeat ekg on 08/06/20 -Chest pain free, trop negative x 3 -D/w Dr. Goetz, this could be attributed to lithium, although as long as patient's HR rises on exertion, no further workup is recommended -Positive chronotropic response on exertion Microangiopathy, intravascular coagulopathy likely transient acute consumption, mild DIC possibly 2/2 to lithium toxicity. -Elevated D dimer, low fibrinogen, PLT mildly improved -no schistocytes seen on peripheral smear. -D/w Dr. Garcia who states that patient is stable at this time but will need f/u for anemia as o/p -Daily CBC here Macrocytic anemia -Peripheral smear: macrocytic anemia. -Occult blood ordered but no s/s of bleeding, not highly suspicious per heme -No need for transfusion -Daily CBC [place] toxicity, lithium-associated acute renal failure- resolved -[place] level of 3.24 (ULN 1.20)--> now wnl -s/p emergent dialysis on 08/04/20. -Nephro signed off. Dialysis catheter removed. -Renal US without acute changes. Chronic changes noted. Bipolar Disorder, major depression -Follows outpatient with Dr. Roy -Reports being stable Li for >10 years, no history of toxicity -Remains off lithium for now -C/w latuda, klonopin 0.5 mg qhs, Seroquel 50 mg qhs. - Plan for transfer to [facility] hopefully 08/10/20 Physical deconditioning likely 2/2 to acute and chronic issues -PT: benefit from home with services Hypothyroid -TSH/T4 of 0.56/8.6 -Levothyroxine 200 mcg HTN -Stable Anorexia, protein calorie malnutrition -BMI of 14.4 -Patient is drinking Ensure 1-2 times per day, small size 3-4 meals -Pending outpatient referral to GI -Dietary consult Resolved issues: Hypotension Prolonged QTc DISPOSITION: Hopeful for [facility] transfer in next 24 hours. Discussed case with Dr. Garcia in great length today VS, I&O, 24H, [place] Vital Signs/I&O Vital Signs Date Time Temp Pulse Resp B/P (MAP) Pulse Ox O2 Delivery O2 Flow Rate FiO2 08/09/20 14:00 98.0 41 18 142/72 (95) 100 Room Air 08/08/20 00:00 2.0 I&O- Last 24 Hours up to 6 AM 08/09/20 06:00 Intake Total 1140 ml Output Total 400 ml Balance 740 ml Laboratory Data 24H LABS Laboratory Tests 2 08/09/20 05:27: Nucleated Red Blood Cells % (auto) 0.0, Anion Gap 4L, Glomerular Filtration Rate > 60.0, Calcium Level 8.4L CBC/BMP Laboratory Tests 08/09/20 05:27 Microbiology Microbiology 08/04/20 Urine Culture - Final, Complete Current Medications Current Medications Medications (Trade) Dose Ordered Sig/Paco Route PRN Reason Start Time Stop Time Status Last Admin Dose Admin Ascorbic Acid (Vitamin C) 500 mg DAILY PO 08/05/20 09:00 08/09/20 08:49 Clonazepam (KlonoPIN) 0.5 mg TID PO 08/06/20 21:00 08/09/20 15:46 Clotrimazole (Mycelex) 10 mg 5XD PRN PO THRUSH 08/05/20 06:00 08/09/20 07:21 DC Docusate Sodium (Colace) 100 mg BID PO 08/09/20 09:00 08/09/20 12:04 Heparin Sodium (Heparin) dose as per volume indica... ASDIRECTED PRN IV SEE LABEL COMMENTS 08/05/20 00:10 08/06/20 00:09 DC Heparin Sodium (Porcine) (Heparin) 5,000 units Q8H SQ 08/05/20 14:00 08/09/20 15:46 Home Med (Med Rec Complete!) ASDIRECTED XX 08/04/20 23:20 08/04/20 23:20 DC Levothyroxine Sodium (Synthroid) 200 mcg DAILY@0600 PO 08/05/20 06:00 08/09/20 05:53 Lurasidone HCl (Latuda) 20 mg DAILY@18 PO 08/08/20 18:00 08/09/20 17:44 Polyethylene Glycol (Miralax) 1 pkt DAILYPRN PRN PO CONSTIPATION 08/09/20 11:10 08/09/20 12:04 Quetiapine Fumarate (SEROquel) 50 mg QHS PO 08/06/20 21:00 08/08/20 21:24 Ramelteon (Rozerem) 8 mg QHS PRN PO INSOMNIA 08/05/20 23:05 08/05/20 23:12 Senna (Senokot) 2 tab QHS PO 08/09/20 21:00 Sodium Chloride 1,000 ml @ 100 mls/hr Q10H IV 08/05/20 00:05 08/06/20 17:12 DC 08/06/20 11:06 Sodium Chloride (Nacl 0.9%) 200 ml ASDIRECTED PRN IV SEE LABEL COMMENTS 08/05/20 00:10 08/06/20 00:09 DC Sodium Chloride (Saline Lock Flush) 2 ml ASDIRECTED PRN IV SEE LABEL COMMENTS 08/06/20 18:50 Sodium Chloride (Saline Lock Flush) 2 ml SLF IV 08/06/20 22:00 08/09/20 14:00 Vitamin D (Vitamin D) 1,000 units DAILY PO 08/05/20 09:00 08/09/20 08:49 Allergies Coded Allergies: No Known Allergies (Unverified , 12/13/19) Luisa Lundberg MD Aug 09, 2020 18:33
[2020-08-09] MEDS: QUEtiapine FUMARATE 50MG TAB PO SCH (20:20)
[2020-08-09] MEDS: RAMELTEON 8 MG TAB (ROZEREM) PO PRN (20:22)
[2020-08-09] MEDS ORDERED: SENNA 8.6 MG TAB (SENOKOT) PO SCH (21:00)
[2020-08-09 22:00] VITALS: BP 137/68
[2020-08-10] MEDS: HEPARIN SOD (PORCINE) 5000UNITS/ML 1ML VIAL/SYRINGE SQ SCH ×2 (05:40→17:17)
[2020-08-10] MEDS: SLF 3 ML SYR IV SCH ×2 (05:40→14:00)
[2020-08-10] MEDS: LEVOTHYROXINE 100MCG TABLET (0.1MG) PO SCH (05:40)
[2020-08-10 06:00] VITALS: BP 126/64
[2020-08-10 06:19] LABS: HEMATOCRIT 29.3 % (36.0-47.0); HEMOGLOBIN 9.2 g/dl (12.0-15.5); MEAN CORPUSCULAR HEMOGLOBIN 31.6 pg (27.0-33.0); MEAN CORPUSCULAR HGB CONC 31.4 g/dl (32.0-36.5); MEAN CORPUSCULAR VOLUME 100.7 fl (80.0-96.0); PLATELET COUNT, AUTOMATED 138 10^3/uL (150-450); RED BLOOD COUNT 2.91 10^6/uL (4.00-5.40); WHITE BLOOD COUNT 5.3 10^3/uL (4.0-10.0)
[2020-08-10 06:49] LABS: BLOOD UREA NITROGEN 6 MG/DL (7-18); CALCIUM LEVEL 8.5 MG/DL (8.5-10.1); CARBON DIOXIDE LEVEL 29 MEQ/L (21-32); CHLORIDE LEVEL 112 MEQ/L (98-107); CREATININE FOR GFR 0.78 MG/DL (0.55-1.30); GLOMERULAR FILTRATION RATE > 60.0 (>51); GLUCOSE, FASTING 83 MG/DL (70-100); POTASSIUM SERUM 3.6 MEQ/L (3.5-5.1); SODIUM LEVEL 146 MEQ/L (136-145)
[2020-08-10] MEDS ORDERED: CLON0.5T2 PO (08:30)
[2020-08-10] MEDS ORDERED: LATU20TA PO (08:30)
[2020-08-10] MEDS ORDERED: SENN18TA PO (08:30)
[2020-08-10] MEDS ORDERED: QUET50TA3 PO (08:30)
[2020-08-10] MEDS ORDERED: DOK1CAP7 PO (08:30)
[2020-08-10] MEDS ORDERED: RAME8TAB2 PO (08:30)
[2020-08-10] MEDS ORDERED: MIRALAX *UNIT DOSE* 17GM PACKET PO SCH (09:00)
[2020-08-10] MEDS: DOCUSATE SODIUM 100MG CAPSULE PO SCH (09:02)
[2020-08-10] MEDS: ASCORBIC ACID 500 MG TAB PO SCH (09:02)
[2020-08-10] MEDS: clonazePAM 0.5 MG TAB PO SCH ×2 (09:02→17:18)
[2020-08-10] MEDS: VITAMIN D 1,000 INTERNATIONAL UNITS TABLET PO SCH (09:02)
[2020-08-10] MEDS ORDERED: FLEET OIL RETENTION ENEMA PR ONE (11:00)
[2020-08-10] MEDS ORDERED: LACTULOSE 20 GM/30 ML SYRUP UD PO ONE (11:00)
[2020-08-10] MEDS ORDERED: MIRA1POW3 PO (12:56)
[2020-08-10 14:00] VITALS: BP 133/73
--- NOTE | 2020-08-10 16:41 | DS.PDOC ---
Discharge Summary General Date of Admission Aug 04, 2020 at 23:02 Date of Discharge 08/10/20 Attending Physician: Luisa Lundberg MD Discharge Summary HISTORY OF PRESENT ILLNESS: Patient is a 59-year-old female with past medical history significant for bipolar disorder, hypertension, hypothyroid, hyperparathyroid and gastric bypass who is presenting to the emergency department the evening of 08/04/20 at the behest of her daughter. Patient reports that she has had a one to 2 month history of nausea and vomiting and weight loss but over the last 1 week this has become increasingly more severe. She states that she has neither been taking her medications nor eating or drinking secondary to the nausea and vomiting. Denies any diarrhea. She also states that over the last week she has become "or confused and foggy". She reports increasing blurry vision and even admits to visual hallucinations, particularly "shapes that are not there ". She shares that today she was also extremely weak and "unstable" on her feet, only able to stand for short amount time. Patient reports that her daughter saw her today and noted her behavior to be out of the ordinary and convinced her to come to the emergency department for evaluation. Upon presentation to the emergency department, she was found to be afebrile, bradycardic with a pulse of 42, respiratory of 14, hypotensive with a blood pressure of 75/49 and maintaining an appropriate oxygen saturation on room air. CBC demonstrates a leukocytosis of 12.6, H/H of 11.3/35.6. Macrocytosis with an MCV of 100.6, normal RDW, normal platelets. Electrolytes within normal limits, BUN/Cr of 49/4.04 and a GFR of 12.1. Most concerning, patient was found to have a lithium level of 3.24. Toxicology and nephrology were contacted, both in agreement that the patient requires emergent dialysis. Hospitalist team was contacted to admit the patient for medical management. HOSPITAL COURSE: For lithium toxicity, lithium-associated acute renal failure she underwent emergent dialysis on 08/04/20. She sustained sinus bradycardia and multiple coagulopathies 2/2 to lithium toxicity listed below under plan. Hematology was involved and suggested watching closely, f/u as o/p for anemia. Nephro signed off as Cr improved gradually and dialysis catheter removed. Renal US without acute changes. Chronic changes noted. Sinus Bradycardia likely 2/2 lithium toxicity, HR remains in the 40's however patient is asymptomatic. Repeat EKG showing t-wave abnormality, t wave inversion improved. She has been chest pain free, trop negative x 3. Case was discussed with Dr. Goetz, who suggested no further workup is recommended as she is having a positive chronotropic response on exertion. She had an elevated D dimer, low fibrinogen, PLT low all suscious of microangiopathy, intravascular coagulopathy likely transient acute consumption, mild DIC possibly 2/2 to lithium toxicity. No schistocytes seen on peripheral smear. Case discussed with Dr. Garcia who states that patient is stable at this time but will need f/u for anemia as o/p only. She was assessed by psychiatry for bipolar Disorder, major depression. Plan was [facility] without lithium to help stabilize mood, further assess. She follows with Dr. Roy normally. Reports being stable Li for >10 years, no history of toxicity but it is unsure if patient is taking too much or compliant with medications overall. She was started on latuda, klonopin 0.5 mg qhs, Seroquel 50 mg qhs which helped her mood. On 08/10/20 patient was deemed stable for discharge from inpatient and admission [facility]. At time of discharge, she denied chest pain, sob, fevers, chills, n/v/d. Worley level was low. PAST MEDICAL HISTORY: Hypertension Migraines, without aura Hypothyroid, status post ablation with MOCTEZUMA, mention 85 Bipolar with major depression Eating disorder, S/P bariatric surgery Hyperparathyroid Vitamin D deficiency Ventral hernia Microalbuminemia Osteopenia PAST SURGICAL HISTORY: Gastric bypass, 2012 Left knee replacement, 2014 Cholecystectomy, 1994 , 1994 Appendectomy, 2013 Uterine ablation, 2000 Colonoscopy, 2016 SOCIAL HISTORY: Marital status: Resides in: On home, [place] Children: 2 sons, 1 daughter Employment: Disabled Tobacco use: Nonsmoker ETOH: Denies alcohol use Illicit drug use: Denies illicit drug use including marijuana FAMILY HISTORY: Father: Alive, 91 years, hypertension Mother: Alive, 86 years, breast cancer in 60s, hypertension Siblings: Brother, , ID at age 60, other brother, living, diabetes mellitus Children: 2 sons and 1 daughter, healthy DISCHARGE MEDICATIONS: Please see below PHYSICAL EXAMINATION: VITAL SIGNS: please see below General: NAD, comfortable HEENT: PERRLA, EOMI, sclerae clear Neck: supple, normal ROM, no JVD Respiratory: lungs CTAB, no wheeze, no rales, no crackles CVS: RRR, normal S1, S2, no murmurs Abdo: soft, no masses, no hepatosplenomegaly, BS+, no rebound tenderness Extremities: no edema, pulses 2+ MSK: no joint deformities, normal ROM Neuro: no focal neuro deficits, moving all 4 extremities, CN2-12 intact. Strength 5/5 in all 4 extremities. No nystagmus. Psych: calm, cooperative, AAO x 3. Denies SI. LABORATORY DATA, IMAGING STUDIES, MICROBIOLOGY: Please see below. Echocardiogram: EF 75% Sinus bradycardia without intraventricular conduction disturbance. M-Mode and Two Dimensional Echocardiography was performed with pulse, continuouswave, color flow, and tissue Doppler studies. Normal left ventricular size, wall thickness, and hyperkinetic wall motion. Normal left atrial size with grade 1 left ventricular diastolic dysfunction, butcurrently normal estimated mean left atrial pressure. Normal right heart chamber sizes and motion and estimated pulmonary arterial pressure. Normal inferior vena cava (IVC) size against an elevated central venous pressure. Normal aortic dimensions. Marginally thickened three equal sized aortic cusps without functional abnorm ality. Normal-appearing and functioning mitral valve. Normal-appearing tricuspid valve with mild insufficiency. No apparent intracardiac mass or pericardial effusion. Renal US (08/05/20): IMPRESSION: 1. Mildly increased renal parenchymal echotexture should be correlated with urinalysis. 2. No hydronephrosis. ASSESSMENT AND PLAN: Sinus Bradycardia likely 2/2 lithium toxicity -HR 40's, asymptomatic -Repeat EKG showing t-wave abnormality, t wave inversion in V1-V3 -T wave abnormalities less pronounced on repeat ekg on 08/06/20 -Chest pain free, trop negative x 3 -D/w Dr. Goetz, this could be attributed to lithium, although as long as patient's HR rises on exertion, no further workup is recommended -Positive chronotropic response on exertion Microangiopathy, intravascular coagulopathy likely transient acute consumption, mild DIC possibly 2/2 to lithium toxicity. -Elevated D dimer, low fibrinogen, PLT mildly improved -no schistocytes seen on peripheral smear. -D/w Dr. Garcia who states that patient is stable at this time but will need f/u for anemia as o/p -Would recommend close monitoring of CBC as o/p Macrocytic anemia -Peripheral smear: macrocytic anemia. -Occult blood ordered but no s/s of bleeding, not highly suspicious per heme -No need for transfusion -Would recommend close monitoring of CBC as o/p Worley toxicity, lithium-associated acute renal failure- resolved -Worley level of 3.24 (ULN 1.20)--> now wnl -s/p emergent dialysis on 08/04/20. -Nephro signed off. Dialysis catheter removed. -Renal US without acute changes. Chronic changes noted. Bipolar Disorder, major depression -Follows outpatient with Dr. Roy -Reports being stable Li for >10 years, no history of toxicity -Remains off lithium for now -C/w latuda, klonopin 0.5 mg qhs, Seroquel 50 mg qhs. - Plan for [facility] today, discussed with Dr. Cisse this AM Physical deconditioning likely 2/2 to acute and chronic issues -PT: benefit from home with services Hypothyroid -TSH/T4 of 0.56/8.6 -Levothyroxine 200 mcg HTN -Stable Anorexia, protein calorie malnutrition -BMI of 14.4 -Patient is drinking Ensure 1-2 times per day, small size 3-4 meals -Pending outpatient referral to GI -Dietary consult Resolved issues: Hypotension Prolonged QTc DISPOSITION: D/c from inpatient, [facility] per Dr. Cisse. TIME SPENT ON DISCHARGE: 35 minutes. Vital Signs/I&Os Vital Signs Date Time Temp Pulse Resp B/P (MAP) Pulse Ox O2 Delivery O2 Flow Rate FiO2 08/10/20 14:00 98.5 47 16 133/73 (93) 100 Room Air 08/08/20 00:00 2.0 I&O- Last 24 Hours up to 6 AM 08/10/20 06:00 Intake Total 1500 ml Output Total 1810 ml Balance -310 ml Laboratory Data Labs 24H Laboratory Tests 2 08/10/20 05:49: Nucleated Red Blood Cells % (auto) 0.0, Anion Gap 5L, Glomerular Filtration Rate > 60.0, Calcium Level 8.5 08/10/20 08:48: D-Dimer, Quantitative 805.12H CBC/BMP Laboratory Tests 08/10/20 05:49 Microbiology Microbiology 08/04/20 Urine Culture - Final, Complete Discharge Medications Scheduled Ascorbic Acid (Vitamin C) 500 Mg Tablet, 500 MG PO DAILY, (Reported) Cholecalciferol (Vitamin D3) (Vitamin D3) 1,000 Unit Tablet, 1,000 UNITS PO DAILY, (Reported) Clonazepam (Clonazepam) 0.5 Mg Tablet, 0.5 MG PO TID Docusate Sodium (Dok) 100 Mg Capsule, 100 MG PO BID Levothyroxine Sodium (Synthroid) 200 Mcg Tablet, 200 MCG PO DAILY, (Reported) Lurasidone Hydrochloride (Latuda) 20 Mg Tablet, 20 MG PO DAILY@18 Polyethylene Glycol 3350 (Miralax) 17 Gm Powd.pack, 1 PKT PO DAILY Quetiapine Fumarate (Quetiapine Fumarate) 50 Mg Tablet, 50 MG PO QHS Senna (Senna Lax) 8.6 Mg Tablet, 2 TAB PO QHS Zinc (Zinc) 50 Mg Tablet, 50 MG PO DAILY, (Reported) Scheduled PRN Clotrimazole (Clotrimazole) 10 Mg Anthony, 10 MG PO 5XD PRN for THRUSH, (Reported) Ramelteon (Ramelteon) 8 Mg Tablet, 8 MG PO QHS PRN for INSOMNIA Allergies Coded Allergies: No Known Allergies (Unverified , 12/13/19) Luisa Lundberg MD Aug 10, 2020 16:41
--- NOTE | 2020-08-22 12:52 | RO ---
OPERATIVE NOTE DATE OF OPERATION: 08/04/2020 PREOPERATIVE DIAGNOSIS: IV access needed for hemodialysis (lithium toxicity). POSTOPERATIVE DIAGNOSIS: IV access needed for hemodialysis (lithium toxicity). PROCEDURE: Right femoral vein central line catheter (dialysis catheter). SURGEON: Justin Hernandez Jr, MD REDUCING SALON ATTENDANT: ANESTHESIA: Local. EBL: Minimal. FLUIDS: Crystalloid. DESCRIPTION OF PROCEDURE: The patient was left in her ICU bed, was prepped and draped in usual sterile fashion. The On-Sight was used to identify the location of the vein which was medial to the artery as appropriate with no significant abnormalities in this area. It was compressible but still full. After prepping and draping in the usual sterile fashion local was infiltrated into the area, finder needle was placed into the vein and the wire was placed over the obturator without difficulty. This was then followed with sequential dilatation first with central line kit and then sequentially up and then dialysis catheter was eventually placed, sutured in place. Both ports aspirated and flushed without difficulty. Dry, sterile dressing was applied. The patient continued on to have dialysis later that evening.
== END 2020-08-10 17:30 | DRG 812 ==
LOC: M ED 18:39 → M ED INP 23:02 → ENRESERV 23:25 → M ICU 08-05 00:34 → M PCU 08-06 17:23 → M MSPAV 08-08 17:17
PROVIDERS: ADMIT General Practice; ATTEND Internal Medicine
PROC: 06HM33Z Insertion of Infusion Device into Right Femoral Vein, Percutaneous Approach (ICD-10-PCS; 2020-08-04)
PROC: 5A1D70Z Performance of Urinary Filtration, Intermittent, Less than 6 Hours Per Day (ICD-10-PCS; principal; 2020-08-05)
DX: T43.591A Poisoning by other antipsychotics and neuroleptics, accidental (unintentional), initial encounter (principal); N17.9 Acute kidney failure, unspecified; E46 Unspecified protein-calorie malnutrition; N18.31 Chronic kidney disease, stage 3a; F31.9 Bipolar disorder, unspecified; F50.9 Eating disorder, unspecified; N14.2 Nephropathy induced by unspecified drug, medicament or biological substance; I12.9 Hypertensive chronic kidney disease with stage 1 through stage 4 chronic kidney disease, or unspecified chronic kidney disease; G43.909 Migraine, unspecified, not intractable, without status migrainosus; E89.0 Postprocedural hypothyroidism; E55.9 Vitamin D deficiency, unspecified; M85.80 Other specified disorders of bone density and structure, unspecified site; Z98.84 Bariatric surgery status; R63.0 Anorexia; Z96.652 Presence of left artificial knee joint; Z90.49 Acquired absence of other specified parts of digestive tract; E86.0 Dehydration; R11.2 Nausea with vomiting, unspecified; R00.1 Bradycardia, unspecified; Z68.1 Body mass index [BMI] 19.9 or less, adult; Z79.899 Other long term (current) drug therapy; F41.0 Panic disorder [episodic paroxysmal anxiety]; G47.00 Insomnia, unspecified; R94.31 Abnormal electrocardiogram [ECG] [EKG]

== ENCOUNTER 2020-08-10 15:09 | Inpatient (IN) | payer OTHER ==
[~2020-08-10] VITALS: Ht 167.6 cm; Wt 43.5 kg
[~2020-08-10 15:09] MED LIST changes: +C 50TAB PO; +CLON0.5T2 PO; +CLOT10TR PO; +D31000TA2 PO; +DOK1CAP7 PO; +LATU20TA PO; +LEVO2TA PO; +LOTR52CA PO; +MIRA1POW3 PO; +QUET50TA3 PO; +RAME8TAB2 PO; +SENN18TA PO; +ZINC1TAB2 PO; +ZIPR20CA21
[2020-08-10] MEDS ORDERED: RAMELTEON 8 MG TAB (ROZEREM) PO PRN (16:35)
[2020-08-10 17:36] VITALS: BP 155/91
[2020-08-10] MEDS ORDERED: LURASIDONE 20 MG TAB (LATUDA) PO SCH (18:00)
[2020-08-10] MEDS: LURASIDONE 20 MG TAB (LATUDA) PO SCH (18:52)
[2020-08-10] MEDS: SENNA 8.6 MG TAB (SENOKOT) PO SCH (20:35)
[2020-08-10] MEDS ORDERED: clonazePAM 0.5 MG TAB PO SCH (21:00)
[2020-08-11] MEDS: LEVOTHYROXINE 100MCG TABLET (0.1MG) PO SCH (05:55)
[2020-08-11 06:26] VITALS: BP 12/68
--- NOTE | 2020-08-11 08:01 | MHHPEPDOC ---
General Date Of Admission: Aug 11, 2020 Legal Status: 9.39 Chief Complaint "I was confused.". History of Present Illness HISTORY OF THE PRESENT ILLNESS: Patient is a 59 -year-old , female, who is a patient of Dr. Newman. She states I was confused. My appetite was poor. I was losing weight. Apparently I had a lithium problem I was admitted to the hospital and got dialysis here at [facility]. Was on a medical floor and actually numerous floors. I was taking lithium 750 on at night extended release. I've been taking lithium for several years. I was also on Geodon and was concerned that Geodon was the cause of my symptoms, so I stopped it. I have been taking Seroquel for sleep and been on lithium for 10 years.. There is some mention in the note of daughter thinking patient had overdosed intentionally.. This is unclear. 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 She has 3 years college education. She is . She has 3 children, 34,31, 25 she has no legal history or drug history is negative. Her alcohol history is negative Neurological history is negative. She's been followed by Dr. Roy for over 3 years. Prior to that she was seeing Dr. Mcclain in [facility] She was born in [facility]. She has no neurological history and denies suicidal and homicidal ideation. She states, "I don't know why I'm here." She states, "do I need a mood stabilizer." She states a couple of her cousins have been diagnosed with paranoid schizophrenia Psychiatric Review of Systems Depression (2 or more weeks): denies Charline (4 or more days of): denies Psychosis: denies PTSD: denies Anxiety: denies Anxiety/ 6 months or more of: other Past Psychiatric History Previous Psychiatric Diagnosis: Bipolar disorder many years diagnosis. Previous Psychiatric Admissions:. Patient has been treated on an outpatient basis. Suicide Attempts:. No known suicide attempts. Psychiatric Follow-up:. Follow-up by Dr. Roy. Psychiatric medications:. Patient now on Latuda. Past Medical History Medical Problems Low Platelet count. Hypothyroid Head Injury: No Seizures: No Hospitalizations: Yes Surgeries: No Family Medical/Psychiatric HX Psychiatric Disorders: No Suicide Attemps/Completions: No Addiction History denies Social History Childhood: No information at this time. Abuse/Trauma: Information at this time. Current Living Situation: Has her own place, lives alone. Education:, 3 years college. 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 Social Support: Has children. Legal:, Legal difficulties. Marital:, . Mental Status Examination General Appearance: well groomed Build: thin Demeanor: average Eye Contact: average Activity: average Behavior: cooperative Speech: clear Mood: euthymic Mood euthymic Affect: full Thought Process: other Thought Content (Delusions): none reported Thought Content (Other): none reported Thought Content (Aggressive): none reported Perception (Hallucinations): none reported Perception (Other): none reported Cognition (Impairment of): none reported Cognition(Intelligence Est.): above average Oriented: Awake, Alert, Oriented times three Insight: good Judgment: Good Psychosis: Denies Diagnoses Bipolar Disorder [place] Toxicity A-FIB/CHADSVASC A-FIB History Current/History of A-Fib/PAF?: No Current PO Anticoag Therapy: No Age/Risk Factor Scoring CHADSVASC: CHADSVASC Response (Comments) Value Age Risk Factor Age < 65 years old 0 Gender Risk Factor Female 1 Hx of CHF No 0 Hx of HTN No 0 Hx of Stroke/TIA/or VTE No 0 Hx of Diabetes No 0 Hx of Vascular Disease No 0 Total 1 Treatment Treatment ordered: NONE Initial Treatment Plan 1. Patient was admitted on a [9.39] status. 2. Complete history was obtained. 3. With patients permission, family will be contacted and database will be expanded. 4. Patients medication regimen will be reviewed and changed accordingly. 5. Patient will be provided with protected environment. 6. Patient will be treated with individual, group, and milieu therapies. 7. Patient will receive supportive psych-education. 8. Discharge planning will commence immediately. 9. Outpatient follow-up treatment will be strongly recommended. 10. The initial treatment plan will focus initially on: * Depression. * Risk for suicide. ESTIMATED LENGTH OF STAY: - DAYS. TIME SPENT COUNSELING AND COORDINATING INITIAL CARE: minutes. Ordered/Pending Vital Signs Vital Signs Date Time Temp Pulse Resp B/P (MAP) Pulse Ox O2 Delivery O2 Flow Rate FiO2 08/11/20 06:26 96.9 48 16 12/68 (50) 97 Room Air Medications Scheduled Ascorbic Acid (Vitamin C) 500 Mg Tablet, 500 MG PO DAILY, (Reported) Cholecalciferol (Vitamin D3) (Vitamin D3) 1,000 Unit Tablet, 1,000 UNITS PO DAILY, (Reported) Clonazepam (Clonazepam) 0.5 Mg Tablet, 0.5 MG PO TID Docusate Sodium (Dok) 100 Mg Capsule, 100 MG PO BID Levothyroxine Sodium (Synthroid) 200 Mcg Tablet, 200 MCG PO DAILY, (Reported) Lurasidone Hydrochloride (Latuda) 20 Mg Tablet, 20 MG PO DAILY@18 Polyethylene Glycol 3350 (Miralax) 17 Gm Powd.pack, 1 PKT PO DAILY Quetiapine Fumarate (Quetiapine Fumarate) 50 Mg Tablet, 50 MG PO QHS Senna (Senna Lax) 8.6 Mg Tablet, 2 TAB PO QHS Zinc (Zinc) 50 Mg Tablet, 50 MG PO DAILY, (Reported) Scheduled PRN Clotrimazole (Clotrimazole) 10 Mg Anthony, 10 MG PO 5XD PRN for THRUSH, (Reported) Ramelteon (Ramelteon) 8 Mg Tablet, 8 MG PO QHS PRN for INSOMNIA Allergies Coded Allergies: No Known Allergies (Unverified , 12/13/19) AGUSTIN REYES MD Aug 11, 2020 08:01
[2020-08-11] MEDS ORDERED: PNEUMOCOCCAL VACCINE 0.5ML SYRINGE (PNEUMOVAX 23) IM ONE (09:00)
[2020-08-11] MEDS: ASCORBIC ACID 500 MG TAB PO SCH (09:41)
[2020-08-11] MEDS: VITAMIN D 1,000 INTERNATIONAL UNITS TABLET PO SCH (09:42)
[2020-08-11] MEDS: MOM 30ML SUSPENSION UDC PO PRN ×2 (11:16→20:45)
--- NOTE | 2020-08-11 17:15 | HPEPDOC ---
General Date of Admission Aug 10, 2020 at 17:31 Date of Service: Aug 11, 2020 Chief Complaint The patient is a 59-year-old female admitted with a reason for visit of . Source: Patient Exam Limitations: No limitations Severity: Mild History of Present Illness Patient is a 59-year-old female with past medical history significant for bipolar disorder, hypertension, hypothyroid, hyperparathyroid and gastric bypass who is presenting to the emergency department the evening of 08/04/20 at the behest of her daughter. Patient reports that she has had a one to 2 month history of nausea and vomiting and weight loss but over the last 1 week this has become increasingly more severe. Patient was diagnosed with lithium toxicity, lithium-associated acute renal failure she underwent emergent dialysis on 08/04/20. After initial stabilization patient was transferred to [facility]. There was suspicion for intentional of lithium overdose. During my interview patient denied any suicidal ideation. She denied fever, chest pain, palpitations, chills, nausea, vomiting, diarrhea or dysuria. Home Medications Scheduled Ascorbic Acid (Vitamin C) 500 Mg Tablet, 500 MG PO DAILY, (Reported) Cholecalciferol (Vitamin D3) (Vitamin D3) 1,000 Unit Tablet, 1,000 UNITS PO DAILY, (Reported) Clonazepam (Clonazepam) 0.5 Mg Tablet, 0.5 MG PO TID Docusate Sodium (Dok) 100 Mg Capsule, 100 MG PO BID Levothyroxine Sodium (Synthroid) 200 Mcg Tablet, 200 MCG PO DAILY, (Reported) Lurasidone Hydrochloride (Latuda) 20 Mg Tablet, 20 MG PO DAILY@18 Polyethylene Glycol 3350 (Miralax) 17 Gm Powd.pack, 1 PKT PO DAILY Quetiapine Fumarate (Quetiapine Fumarate) 50 Mg Tablet, 50 MG PO QHS Senna (Senna Lax) 8.6 Mg Tablet, 2 TAB PO QHS Zinc (Zinc) 50 Mg Tablet, 50 MG PO DAILY, (Reported) Scheduled PRN Clotrimazole (Clotrimazole) 10 Mg Anthony, 10 MG PO 5XD PRN for THRUSH, (Reported) Ramelteon (Ramelteon) 8 Mg Tablet, 8 MG PO QHS PRN for INSOMNIA Allergies Coded Allergies: No Known Allergies (Unverified , 12/13/19) Past Medical History Medical History Hypertension Migraines, without aura Hypothyroid, status post ablation with MOCTEZUMA, mention 85 Bipolar with major depression Eating disorder, S/P bariatric surgery Hyperparathyroid Vitamin D deficiency Ventral hernia Microalbuminemia Osteopenia Surgical History Gastric bypass, 2012 Left knee replacement, 2014 Cholecystectomy, 1994 , 1994 Appendectomy, 2013 Uterine ablation, 2000 Colonoscopy, 2016 Social History * Smoker: Denies Alcohol: Denies Drugs: denies A-FIB/CHADSVASC A-FIB History Current/History of A-Fib/PAF?: No Current PO Anticoag Therapy: No Review of Systems Constitutional: Denies: Chills Eyes: Denies: Pain ENT: Denies: Head Aches Skin: Denies: Rash Pulmonary: Denies: Cough Cardiovascular: Denies: Chest Pain Gastrointestinal: Denies: Nausea, Vomiting Genitourinary: Denies: Dysuria Hematologic: Denies: Bruising Endocrine: Denies: Polydipsia Musculoskeletal: Denies: Neck Pain Neurological: Denies: Weakness Psych: Reports: Mood Normal Physical Examination General Exam: Positive: Alert, Cooperative Eye Exam: Positive: PERRLA ENT Exam: Positive: Pinna Normal Neck Exam: Positive: Supple; Negative: JVD Chest Exam: Positive: Clear to auscultation Telemetry: Positive: No significant arrhythmia Abdomen Exam: Positive: Normal bowel sounds Extremity Exam: Negative: Clubbing, Cyanosis Skin Exam: Positive: Nl turgor and temperature Neuro Exam: Positive: Normal Gait, Strength at 5/5 X4 ext Psych Exam: Positive: Oriented x 3 Vital Signs Vital Signs Date Time Temp Pulse Resp B/P (MAP) Pulse Ox O2 Delivery O2 Flow Rate FiO2 08/11/20 09:30 Room Air 08/11/20 06:26 96.9 48 16 (50 97 Assessment/Plan Patient is a 59-year-old female with past medical history significant for bipola r disorder, hypertension, hypothyroid, hyperparathyroid and gastric bypass who is presenting to the emergency department the evening of 08/04/20 at the behest of her daughter. Patient reports that she has had a one to 2 month history of nausea and vomiting and weight loss but over the last 1 week this has become increasingly more severe. Patient was diagnosed with lithium toxicity, lithium- associated acute renal failure she underwent emergent dialysis on 08/04/20. After initial stabilization patient was transferred to [facility]. There was suspicion for intentional of lithium overdose. During my interview patient denied any suicidal ideation. She denied fever, chest pain, palpitations, chills, nausea, vomiting, diarrhea or dysuria. Problems (1) Bipolar disorder Status: Chronic Problem Text: Defer treatment to psych team (2) Hypertension Status: Chronic Problem Text: Amlodipine 5 mg daily (3) Hypothyroidism Status: Chronic Problem Text: Continue Synthroid (4) Macrocytic anemia Status: Chronic Problem Text: Workup in the outpatient settings with PCP No indication for blood transfusion (5) Anorexia Status: Chronic Problem Text: protein calorie malnutrition -BMI of 14.4 Ensure to 3 times a day Dietary consult Plan / VTE VTE Prophylaxis Ordered?: No VTE Exclusion Mechanical Proph: Low Risk for VTE FERNANDO FULLER DO Aug 11, 2020 17:15
[2020-08-11] MEDS: LURASIDONE 20 MG TAB (LATUDA) PO SCH (17:43)
[2020-08-11 18:51] VITALS: BP 141/67
[2020-08-11] MEDS: SENNA 8.6 MG TAB (SENOKOT) PO SCH (20:45)
[2020-08-11] MEDS ORDERED: QUEtiapine FUMARATE 200 MG TAB PO SCH (21:00)
[2020-08-12] MEDS ORDERED: diphenhydrAMINE 50MG/ML VIAL (J1200) IM PRN
[2020-08-12] MEDS ORDERED: EPINEPHrine INJ 1 MG/ML 1ML AMP IM PRN
[2020-08-12] MEDS: LEVOTHYROXINE 100MCG TABLET (0.1MG) PO SCH (05:53)
[2020-08-12 06:46] VITALS: BP 122/58
[2020-08-12 06:47] LABS: BASO % 0.4 % (0.0-1.0); EOS # 0.2 10^3/uL (0.0-0.5); EOS % 4.3 % (0.0-3.0); HEMATOCRIT 29.7 % (36.0-47.0); HEMOGLOBIN 9.5 g/dl (12.0-15.5); LYMPH % 41.2 % (24.0-44.0); MEAN CORPUSCULAR HEMOGLOBIN 32.1 pg (27.0-33.0); MEAN CORPUSCULAR VOLUME 100.3 fl (80.0-96.0); MONO # 0.4 10^3/uL (0.0-0.8); MONO % 7.2 % (2.0-8.0); NEUTROPHILS # 2.3 10^3/uL (1.5-8.5); NEUTROPHILS % 46.7 % (36.0-66.0); PLATELET COUNT, AUTOMATED 124 10^3/uL (150-450); RED BLOOD COUNT 2.96 10^6/uL (4.00-5.40); WHITE BLOOD COUNT 4.9 10^3/uL (4.0-10.0)
[2020-08-12 07:21] LABS: BLOOD UREA NITROGEN 10 MG/DL (7-18); CALCIUM LEVEL 8.6 MG/DL (8.5-10.1); CARBON DIOXIDE LEVEL 30 MEQ/L (21-32); CHLORIDE LEVEL 113 MEQ/L (98-107); CREATININE FOR GFR 0.77 MG/DL (0.55-1.30); GLOMERULAR FILTRATION RATE > 60.0 (>51); GLUCOSE, FASTING 86 MG/DL (70-100); SODIUM LEVEL 146 MEQ/L (136-145)
[2020-08-12] MEDS ORDERED: amLODIPine 5 MG TAB PO SCH (09:00)
[2020-08-12 09:07] VITALS: BP 122/58
[2020-08-12] MEDS: VITAMIN D 1,000 INTERNATIONAL UNITS TABLET PO SCH (09:07)
[2020-08-12] MEDS: ASCORBIC ACID 500 MG TAB PO SCH (09:07)
[2020-08-12] MEDS ORDERED: LEVO100T5 PO (13:34)
[2020-08-12] MEDS ORDERED: LATU20TA PO (13:34)
[2020-08-12] MEDS ORDERED: AMLO1TAB24 PO (13:34)
[2020-08-12] MEDS ORDERED: QUET200T2 PO (13:34)
[2020-08-12] MEDS ORDERED: COVID-19 VAC,AD26(JANSSEN)/PF 0.5ML SYRINGE (EUA) IM ONE (14:30)
--- NOTE | 2020-08-13 07:35 | MHDSPDOC ---
[facility] Discharge Summary Discharge Summary DATE OF ADMISSION: Aug 10, 2020 at 17:31 DATE OF DISCHARGE: Aug 12, 2020 at 16:20 DISCHARGE DIAGNOSES: 1. Bipolar disorder Reason for Admission HISTORY OF THE PRESENT ILLNESS: Patient is a 59 -year-old , female, who is a patient of Dr. Newman. She states I was confused. My appetite was poor. I was losing weight. Apparently I had a lithium problem I was admitted to the hospital and got dialysis here at [facility]. Was on a medical floor and actually numerous floors. I was taking lithium 750 on at night extended release. I've been taking lithium for several years. I was also on Geodon and was concerned that Geodon was the cause of my symptoms, so I stopped it. I have been taking Seroquel for sleep and been on lithium for 10 years.. There is some mention in the note of daughter thinking patient had overdosed intentionally.. This is unclear. 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 She has 3 years college education. She is . She has 3 children, 34,31, 25 she has no legal history or drug history is negative. Her alcohol history is negative Neurological history is negative. She's been followed by Dr. Roy for over 3 years. Prior to that she was seeing Dr. Mcclain in [facility] She was born in [facility]. She has no neurological history and denies suicidal and homicidal ideation. She states, "I don't know why I'm here." She states, "do I need a mood stabilizer." She states a couple of her cousins have been diagnosed with paranoid schizophrenia. Patient seemed to be mood stabilized on interview. I spoke with MD who initiated admission and as best as I could determine, there was still some concern that patient may have caused self harm with her Pearl. With no further symptoms I requested family be contacted. I spoke with daughter who was of the opinion that self harm was not a factor and other staff received same information. I spoke with patient and we stopped unneccessary medications and she was prescribed Seroquel and Latuda was continued. Decision was to discharge patient to home as further inpatient stay was not neccessary. Latuda was not covered by pt. insurance and supervisory staff and pt were notified of this as was Dr. Cisse who admitted her to unit.Repeat CBC was ordered. CONSULTANTS INVOLVED: None TREATMENT AND PROGRESS ON THE UNIT : Unremarkable. Pt was pleasant and conference services coordinator perative HOSPITAL COURSE: as above DISCHARGE ASSESSMENT: Bipolar Disorder History of Pearl Toxicity Now on Latuda May need additional mood stabilizer by OP MD MENTAL STATUS EXAMINATION ON DISCHARGE: Patient is a 59-year old female, who is pleasant, cooperative. Speech is, no disturbance. Language skills are. No disturbance. Thought processes including:. No gross disturbance. Thought content:. No gross disturbance. Abstract reasoning, and computation: Present. Description of associations:. No loose association. Description of abnormal or psychotic thoughts:. No psychotic thought. Judgment: Intact. Insight: Intact. Orientation to 3. Recent and remote memory:. No gross disturbance. Attention span and concentration:. No gross disturbance. Language:. No gross disturbance. Fund of knowledge: Reasonable. Mood: Good. Affect:, Congruent. MEDICATIONS ON DISCHARGE: Latuda-20 mg for Bipolar Depression Seroquel 200 mg for sleep and Bipolar illness Patient's routine home meds PLAN/FOLLOWUP ARRANGEMENTS: Outpatient treatment Dr. Roy. The amount of time spent in the coordination of care for this patient was approximately 35 minutes. ETOH/Disorder Med Rx ETOH/DRUG DISORDER RX: N/A Vital Signs/I&Os Vital Signs Date Time Temp Pulse Resp B/P (MAP) Pulse Ox O2 Delivery O2 Flow Rate FiO2 08/12/20 09:07 57 122/58 08/12/20 06:46 98.9 16 98 Room Air Medications Scheduled Amlodipine Besylate (Amlodipine Besylate) 5 Mg Tablet, 5 MG PO DAILY for BP, #10 Ascorbic Acid (Vitamin C) 500 Mg Tablet, 500 MG PO DAILY, (Reported) Cholecalciferol (Vitamin D3) (Vitamin D3) 1,000 Unit Tablet, 1,000 UNITS PO DAILY, (Reported) Docusate Sodium (Dok) 100 Mg Capsule, 100 MG PO BID for 30 Days, #60 Levothyroxine Sodium (Synthroid) 200 Mcg Tablet, 200 MCG PO DAILY, (Reported) Levothyroxine Sodium (Levothyroxine Sodium) 100 Mcg Tablet, 200 MCG PO DAILY@06 for Thyroid, #14 Lurasidone Hydrochloride (Latuda) 20 Mg Tablet, 20 MG PO DAILY@1800 for Depression, #10 Polyethylene Glycol 3350 (Miralax) 17 Gm Powd.pack, 1 PKT PO DAILY for 30 Days, #30 Quetiapine Fumarate (Quetiapine Fumarate) 200 Mg Tablet, 200 MG PO QHS for Mood, #10 Senna (Senna Lax) 8.6 Mg Tablet, 2 TAB PO QHS for 14 Days, #28 Zinc (Zinc) 50 Mg Tablet, 50 MG PO DAILY, (Reported) Scheduled PRN Clotrimazole (Clotrimazole) 10 Mg Anthony, 10 MG PO 5XD PRN for THRUSH, (Reported) Allergies Coded Allergies: No Known Allergies (Unverified , 12/13/19) AGUSTIN REYES MD Aug 13, 2020 07:35
== END 2020-08-12 16:20 | disposition home or self-care (01) | DRG 753 ==
LOC: M PSY 17:31
PROVIDERS: ADMIT Psychiatry & Neurology Psychiatry; ATTEND Psychiatry & Neurology Child & Adolescent Psychiatry
DX: F31.9 Bipolar disorder, unspecified (principal); E46 Unspecified protein-calorie malnutrition; R63.0 Anorexia; I10 Essential (primary) hypertension; E89.0 Postprocedural hypothyroidism; G43.909 Migraine, unspecified, not intractable, without status migrainosus; D50.9 Iron deficiency anemia, unspecified; E55.9 Vitamin D deficiency, unspecified; Z98.84 Bariatric surgery status; Z96.652 Presence of left artificial knee joint; Z90.49 Acquired absence of other specified parts of digestive tract; Z68.1 Body mass index [BMI] 19.9 or less, adult; Z79.899 Other long term (current) drug therapy

== ENCOUNTER → 2020-08-25 | Outpatient (REF) | payer OTHER ==
[~2020-08-25] MED LIST changes: +AMLO1TAB24 PO; +LEVO100T5 PO; +QUET200T2 PO
[2020-08-25 14:15] LABS: HEMATOCRIT 31.6 % (36.0-47.0); HEMOGLOBIN 9.7 g/dl (12.0-15.5); MEAN CORPUSCULAR HGB CONC 30.7 g/dl (32.0-36.5); MEAN CORPUSCULAR VOLUME 107.5 fl (80.0-96.0); PLATELET COUNT, AUTOMATED 214 10^3/uL (150-450); RED BLOOD COUNT 2.94 10^6/uL (4.00-5.40); WHITE BLOOD COUNT 5.3 10^3/uL (4.0-10.0)
[2020-08-25 14:44] LABS: BLOOD UREA NITROGEN 23 MG/DL (7-18); CARBON DIOXIDE LEVEL 28 MEQ/L (21-32); CHLORIDE LEVEL 111 MEQ/L (98-107); CREATININE FOR GFR 0.76 MG/DL (0.55-1.30); FREE T4 1.13 NG/DL (0.76-1.46); GLOMERULAR FILTRATION RATE > 60.0 (>51); GLUCOSE, FASTING 74 MG/DL (70-100); POTASSIUM SERUM 4.8 MEQ/L (3.5-5.1); SODIUM LEVEL 142 MEQ/L (136-145); THYROID STIMULATING HORMONE 0.065 uIU/ML (0.358-3.740)
[2020-08-25 14:48] LABS: TOTAL 25(OH) VITAMIN D 29.7 NG/ML (30.0-100.0)
== END ==
LOC: M SFHCPLAZ 11:13
PROVIDERS: ATTEND Nurse Practitioner Family
DX: I10 Essential (primary) hypertension (principal); E03.9 Hypothyroidism, unspecified; D75.89 Other specified diseases of blood and blood-forming organs; E55.9 Vitamin D deficiency, unspecified

== ENCOUNTER → 2020-10-04 | Outpatient (REF) | payer OTHER ==
[2020-10-04 17:31] LABS: HEMATOCRIT 30.7 % (36.0-47.0); HEMOGLOBIN 9.5 g/dl (12.0-15.5); MEAN CORPUSCULAR HEMOGLOBIN 35.1 pg (27.0-33.0); MEAN CORPUSCULAR HGB CONC 30.9 g/dl (32.0-36.5); MEAN CORPUSCULAR VOLUME 113.3 fl (80.0-96.0); PLATELET COUNT, AUTOMATED 287 10^3/uL (150-450); RED BLOOD COUNT 2.71 10^6/uL (4.00-5.40); WHITE BLOOD COUNT 7.6 10^3/uL (4.0-10.0)
[2020-10-04 17:38] LABS: INR 0.96
[2020-10-04 17:39] LABS: PARTIAL THROMBOPLASTIN TIME 30.7 SECONDS (24.2-38.5)
[2020-10-04 17:50] LABS: ALBUMIN 3.6 GM/DL (3.2-5.2); ALT/SGPT 101 U/L (12-78); BILIRUBIN,TOTAL 0.6 MG/DL (0.2-1.0); BLOOD UREA NITROGEN 26 MG/DL (7-18); CALCIUM LEVEL 9.2 MG/DL (8.5-10.1); CARBON DIOXIDE LEVEL 26 MEQ/L (21-32); CHLORIDE LEVEL 107 MEQ/L (98-107); CREATININE FOR GFR 0.96 MG/DL (0.55-1.30); FERRITIN 202 NG/ML (8-252); FREE T4 0.77 NG/DL (0.76-1.46); GLOMERULAR FILTRATION RATE > 60.0 (>51); GLUCOSE, FASTING 83 MG/DL (70-100); IRON (FE) 86 UG/DL (50-170); PERCENT SATURATION 34.1 % (13.2-45.0); POTASSIUM SERUM 4.7 MEQ/L (3.5-5.1); PTH INTACT 90.5 PG/ML (18.5-88.0); SODIUM LEVEL 139 MEQ/L (136-145); TOTAL IRON BINDING CAPACITY 252 UG/DL (250-450); TOTAL PROTEIN 6.6 GM/DL (6.4-8.2)
== END ==
LOC: M SFHCADAM 14:09
PROVIDERS: ATTEND Family Medicine
DX: E03.9 Hypothyroidism, unspecified (principal); D50.8 Other iron deficiency anemias; E34.9 Endocrine disorder, unspecified; R23.8 Other skin changes

== ENCOUNTER → 2020-11-01 | Outpatient (REF) | payer OTHER | LOC: M SFHCADAM 11:01 | PROVIDERS: ATTEND Family Medicine | DX: D53.9 Nutritional anemia, unspecified (principal) ==

== ENCOUNTER → 2020-11-03 | Outpatient (REF) | payer OTHER ==
[2020-11-03 17:56] LABS: FERRITIN 172 NG/ML (8-252); IRON (FE) 91 UG/DL (50-170); PERCENT SATURATION 33.6 % (13.2-45.0); TOTAL IRON BINDING CAPACITY 271 UG/DL (250-450)
[2020-11-03 20:21] LABS: FOLATE 21.9 NG/ML; VITAMIN B12 LEVEL > 2000 PG/ML
== END ==
LOC: M LAB REF 16:42
PROVIDERS: ATTEND Internal Medicine Nephrology
DX: D50.9 Iron deficiency anemia, unspecified (principal)

== ENCOUNTER → 2020-11-09 | Outpatient (CLI) | payer OTHER | LOC: M LAB 16:19 | PROVIDERS: ATTEND Family Medicine | DX: D59.9 Acquired hemolytic anemia, unspecified (principal) ==

== ENCOUNTER → 2020-11-23 | Outpatient (REF) | payer OTHER ==
[2020-11-23 13:25] LABS: BASO # 0.1 10^3/uL (0.0-0.2); BASO % 1.2 % (0.0-1.0); EOS # 0.2 10^3/uL (0.0-0.5); EOS % 2.9 % (0.0-3.0); HEMATOCRIT 33.6 % (36.0-47.0); HEMOGLOBIN 10.3 g/dl (12.0-15.5); LYMPH # 2.1 10^3/uL (1.5-5.0); LYMPH % 35.3 % (24.0-44.0); MEAN CORPUSCULAR HGB CONC 30.7 g/dl (32.0-36.5); MEAN CORPUSCULAR VOLUME 117.5 fl (80.0-96.0); MONO # 0.5 10^3/uL (0.0-0.8); MONO % 8.6 % (2.0-8.0); NEUTROPHILS # 3.1 10^3/uL (1.5-8.5); NEUTROPHILS % 51.7 % (36.0-66.0); PLATELET COUNT, AUTOMATED 210 10^3/uL (150-450); RED BLOOD COUNT 2.86 10^6/uL (4.00-5.40); WHITE BLOOD COUNT 5.9 10^3/uL (4.0-10.0)
[2020-11-23 13:49] LABS: PLATELET ESTIMATE NORMAL (NORMAL)
[2020-11-23 13:50] LABS: ALBUMIN 3.3 GM/DL (3.2-5.2); ALT/SGPT 107 U/L (12-78); BILIRUBIN,TOTAL 0.5 MG/DL (0.2-1.0); BLOOD UREA NITROGEN 17 MG/DL (7-18); CALCIUM LEVEL 8.6 MG/DL (8.5-10.1); CARBON DIOXIDE LEVEL 26 MEQ/L (21-32); CHLORIDE LEVEL 110 MEQ/L (98-107); CREATININE FOR GFR 0.84 MG/DL (0.55-1.30); FERRITIN 130 NG/ML (8-252); GLOMERULAR FILTRATION RATE > 60.0 (>51); GLUCOSE, FASTING 69 MG/DL (70-100); IRON (FE) 113 UG/DL (50-170); POTASSIUM SERUM 4.1 MEQ/L (3.5-5.1); SODIUM LEVEL 141 MEQ/L (136-145); TOTAL IRON BINDING CAPACITY 269 UG/DL (250-450); TOTAL PROTEIN 6.1 GM/DL (6.4-8.2)
[2020-11-23 13:55] LABS: VITAMIN B12 LEVEL > 2000 PG/ML
[2020-11-23 13:56] LABS: FOLATE > 24.0 NG/ML
[2020-11-23 19:50] LABS: HEPATITIS B SURFACE ANTIGEN NEGATIVE (NEGATIVE)
[2020-11-23 20:18] LABS: HEPATITIS B CORE ANTIBODY IGM NEGATIVE (NEGATIVE); HEPATITIS C VIRUS ABY INDEX < 0.0 INDEX (<0.8)
[2020-11-23 20:20] LABS: HEPATITIS A ANTIBODY IGM NEGATIVE (NEGATIVE)
== END ==
LOC: M SFHCADAM 08:39
PROVIDERS: ATTEND Physician Assistant
DX: D59.8 Other acquired hemolytic anemias (principal)

== ENCOUNTER → 2020-12-13 | Outpatient (CLI) | payer OTHER ==
[~2020-12-13] MED LIST changes: +BUSP10TA PO; +DEPA250T32 PO; +DOK1CAP4 PO; -DOK1CAP7 PO; +ERGO500029 PO; +FERR325T3 PO; +FOLI1TAB11 PO; +LATU1TAB PO; +LATU40TA2 PO; +LEVO-96 PO; -POTA10TA14 PO; +POTA1TAB24 PO; -QUET50TA3 PO; +QUET50TA4 PO; +SENN8.6T28 PO; +Vit D; +[UNRECOGNIZED DRUG - CODE] XX
== END ==
LOC: M RAD 08:05
PROVIDERS: ATTEND Physician Assistant
DX: R74.8 Abnormal levels of other serum enzymes (principal)

== ENCOUNTER → 2021-03-07 | Outpatient (REF) | payer OTHER ==
[~2021-03-07] MED LIST changes: -ERGO500029 PO; -FERR325T3 PO; -FOLI1TAB11 PO; -LATU1TAB PO; +LATU40TA PO; -LATU40TA2 PO; +POTA10TA14 PO; -POTA1TAB24 PO
[2021-03-07 13:59] LABS: HEMATOCRIT 37.7 % (36.0-47.0); HEMOGLOBIN 11.7 g/dl (12.0-15.5); MEAN CORPUSCULAR HEMOGLOBIN 33.9 pg (27.0-33.0); MEAN CORPUSCULAR VOLUME 109.3 fl (80.0-96.0); PLATELET COUNT, AUTOMATED 202 10^3/uL (150-450); RED BLOOD COUNT 3.45 10^6/uL (4.00-5.40); WHITE BLOOD COUNT 5.9 10^3/uL (4.0-10.0)
[2021-03-07 17:48] LABS: ALBUMIN 3.8 GM/DL (3.2-5.2); ALT/SGPT 53 U/L (12-78); BILIRUBIN,TOTAL 0.4 MG/DL (0.2-1.0); BLOOD UREA NITROGEN 18 MG/DL (7-18); CALCIUM LEVEL 9.6 MG/DL (8.8-10.2); CARBON DIOXIDE LEVEL 25 MEQ/L (21-32); CHLORIDE LEVEL 112 MEQ/L (98-107); CREATININE FOR GFR 0.86 MG/DL (0.55-1.30); FREE T4 0.88 NG/DL (0.76-1.46); GLOMERULAR FILTRATION RATE > 60.0 (>45); GLUCOSE, FASTING 76 MG/DL (70-100); POTASSIUM SERUM 4.6 MEQ/L (3.5-5.1); PTH INTACT 78.7 PG/ML (18.5-88.0); RHEUMATOID FACTOR QUANT < 10.0 IU/ML (<15.0); SODIUM LEVEL 141 MEQ/L (136-145); THYROID PEROXIDASE ANTIBODY 29.2 U/ML (<60.0); TOTAL 25(OH) VITAMIN D 21.6 NG/ML (30.0-100.0); TOTAL PROTEIN 6.8 GM/DL (6.4-8.2)
[2021-03-09 00:09] LABS: ANA (HEP2) Positive (.); CYCLIC CITRULLINATED PEPTIDE 7 units (0-19)
== END ==
LOC: M SFHCADAM 08:48
PROVIDERS: ATTEND Family Medicine
DX: D64.9 Anemia, unspecified (principal); R63.4 Abnormal weight loss; R74.8 Abnormal levels of other serum enzymes; E34.9 Endocrine disorder, unspecified; E55.9 Vitamin D deficiency, unspecified; R76.8 Other specified abnormal immunological findings in serum; E03.9 Hypothyroidism, unspecified

== ENCOUNTER → 2021-08-01 | Outpatient (REF) | payer OTHER ==
[~2021-08-01] MED LIST changes: -D31000TA2 PO; +ERGO500029 PO; +FERR325T3 PO; +FOLI1TAB11 PO; +LATU1TAB PO; -LATU40TA PO; +LATU40TA2 PO; -POTA10TA14 PO; +POTA1TAB24 PO; +VITA100093 PO
[2021-08-01 12:49] LABS: APPEARANCE, URINE HAZY (CLEAR); BACTERIA, URINE AUTO NEGATIVE (NEGATIVE); BILIRUBIN, URINE AUTO NEGATIVE (NEGATIVE); BLOOD, URINE BLOOD NEGATIVE (NEGATIVE); COLOR, URINE YELLOW (YELLOW); GLUCOSE, URINE (UA) AUTO NEGATIVE (NEGATIVE); KETONE, URINE AUTO NEGATIVE (NEGATIVE); LEUKOCYTE ESTERASE, URINE AUTO 2+ (NEGATIVE); NITRITE, URINE AUTO NEGATIVE (NEGATIVE); PROTEIN, URINE AUTO NEGATIVE (NEGATIVE); RBC, URINE AUTO 2 /HPF (0-3); SPECIFIC GRAVITY URINE AUTO 1.015 (1.002-1.035); SQUAMOUS EPITHELIAL CELL UR AU 0 /HPF (0-6); UROBILINOGEN, URINE AUTO 0.2 mg/dL (0.0-2.0); WBC, URINE AUTO 87 /HPF (0-3)
[2021-08-01 12:57] LABS: BASO # 0.1 10^3/uL (0.0-0.2); BASO % 1.1 % (0.0-1.0); EOS # 0.3 10^3/uL (0.0-0.5); EOS % 3.1 % (0.0-3.0); HEMATOCRIT 41.1 % (36.0-47.0); HEMOGLOBIN 13.1 g/dl (12.0-15.5); LYMPH % 23.7 % (24.0-44.0); MEAN CORPUSCULAR HGB CONC 31.9 g/dl (32.0-36.5); MEAN CORPUSCULAR VOLUME 100.5 fl (80.0-96.0); MONO # 0.4 10^3/uL (0.0-0.8); MONO % 4.7 % (2.0-8.0); NEUTROPHILS # 5.6 10^3/uL (1.5-8.5); NEUTROPHILS % 66.9 % (36.0-66.0); PLATELET COUNT, AUTOMATED 321 10^3/uL (150-450); RED BLOOD COUNT 4.09 10^6/uL (4.00-5.40); WHITE BLOOD COUNT 8.3 10^3/uL (4.0-10.0)
[2021-08-01 13:30] LABS: CREATININE,RANDOM URINE 69.5 MG/DL; TOTAL PROTEIN,RANDOM URINE 16.1 MG/DL (0.0-12.0)
[2021-08-01 13:32] LABS: ALBUMIN 4.2 GM/DL (3.2-5.2); ALT/SGPT 51 U/L (12-78); BILIRUBIN,DIRECT 0.1 MG/DL (0.0-0.2); BILIRUBIN,TOTAL 0.3 MG/DL (0.2-1.0); BLOOD UREA NITROGEN 20 MG/DL (7-18); CALCIUM LEVEL 9.8 MG/DL (8.8-10.2); CARBON DIOXIDE LEVEL 30 MEQ/L (21-32); CHLORIDE LEVEL 106 MEQ/L (98-107); COMPLEMENT C3 130 MG/DL (90-180); COMPLEMENT C4 32 MG/DL (10-40); CREATININE FOR GFR 1.06 MG/DL (0.55-1.30); GLOMERULAR FILTRATION RATE 56.3 (>45); GLUCOSE, FASTING 77 MG/DL (70-100); IRON (FE) 62 UG/DL (50-170); MAGNESIUM LEVEL 2.6 MG/DL (1.8-2.4); POTASSIUM SERUM 4.3 MEQ/L (3.5-5.1); SODIUM LEVEL 140 MEQ/L (136-145); TOTAL PROTEIN 8.3 GM/DL (6.4-8.2)
[2021-08-01 14:11] LABS: VITAMIN B12 LEVEL > 2000 PG/ML (247-911)
== END ==
LOC: M SFHCRHEU 10:18
PROVIDERS: ATTEND Internal Medicine
DX: R76.8 Other specified abnormal immunological findings in serum (principal); R53.82 Chronic fatigue, unspecified; Z79.1 Long term (current) use of non-steroidal anti-inflammatories (NSAID)

== ENCOUNTER → 2021-08-01 | Outpatient (CLI) | payer OTHER | LOC: M RAD 11:07 | PROVIDERS: ATTEND Internal Medicine | DX: M19.049 Primary osteoarthritis, unspecified hand (principal); M18.9 Osteoarthritis of first carpometacarpal joint, unspecified ==

== ENCOUNTER → 2021-08-01 | Outpatient (CLI) | payer OTHER ==
[2021-08-01 12:31] LABS: HEMATOCRIT 40.1 % (36.0-47.0); HEMOGLOBIN 12.5 g/dl (12.0-15.5); MEAN CORPUSCULAR HEMOGLOBIN 31.6 pg (27.0-33.0); MEAN CORPUSCULAR HGB CONC 31.2 g/dl (32.0-36.5); MEAN CORPUSCULAR VOLUME 101.3 fl (80.0-96.0); PLATELET COUNT, AUTOMATED 305 10^3/uL (150-450); RED BLOOD COUNT 3.96 10^6/uL (4.00-5.40); WHITE BLOOD COUNT 8.7 10^3/uL (4.0-10.0)
[2021-08-01 13:52] LABS: ALBUMIN 3.7 GM/DL (3.2-5.2); ALT/SGPT 43 U/L (12-78); BILIRUBIN,TOTAL 0.2 MG/DL (0.2-1.0); BLOOD UREA NITROGEN 17 MG/DL (7-18); CALCIUM LEVEL 9.4 MG/DL (8.8-10.2); CARBON DIOXIDE LEVEL 28 MEQ/L (21-32); CHLORIDE LEVEL 107 MEQ/L (98-107); CHOLESTEROL LEVEL 177 MG/DL (<200); CHOLESTEROL RISK RATIO 4.022 (<5); FERRITIN 25 NG/ML (8-252); GLOMERULAR FILTRATION RATE > 60.0 (>45); GLUCOSE, FASTING 78 MG/DL (70-100); HDL CHOLESTEROL 44 MG/DL (>40); IRON (FE) 54 UG/DL (50-170); LDL CHOLESTEROL 109 MG/DL (<100); NON-HDL-C 133 MG/DL; POTASSIUM SERUM 4.4 MEQ/L (3.5-5.1); SODIUM LEVEL 140 MEQ/L (136-145); TOTAL IRON BINDING CAPACITY 450 UG/DL (250-450); TOTAL PROTEIN 7.2 GM/DL (6.4-8.2); TRIGLYCERIDES LEVEL 119 MG/DL (<150)
[2021-08-01 14:13] LABS: TOTAL 25(OH) VITAMIN D 14.6 NG/ML (30.0-100.0)
[2021-08-01 14:23] LABS: FOLATE > 24.0 NG/ML (>5.4)
[2021-08-01 14:27] LABS: VITAMIN B12 LEVEL > 2000 PG/ML (247-911)
[2021-08-01 14:37] LABS: HEMOGLOBIN A1c 4.4 %
== END ==
LOC: M LAB 11:18
PROVIDERS: ATTEND Physician Assistant
DX: E55.9 Vitamin D deficiency, unspecified (principal); R73.01 Impaired fasting glucose; K91.2 Postsurgical malabsorption, not elsewhere classified; Z13.220 Encounter for screening for lipoid disorders; Z98.84 Bariatric surgery status

== ENCOUNTER → 2021-08-10 | Outpatient (REF) | payer OTHER ==
[~2021-08-10] MED LIST changes: +ACET-897 PO; +LATU80TA2 PO
[2021-08-10 17:53] LABS: APPEARANCE, URINE CLEAR (CLEAR); BACTERIA, URINE AUTO 1+ (NEGATIVE); BILIRUBIN, URINE AUTO NEGATIVE (NEGATIVE); BLOOD, URINE BLOOD NEGATIVE (NEGATIVE); COLOR, URINE YELLOW (YELLOW); GLUCOSE, URINE (UA) AUTO NEGATIVE (NEGATIVE); KETONE, URINE AUTO NEGATIVE (NEGATIVE); LEUKOCYTE ESTERASE, URINE AUTO TRACE (NEGATIVE); NITRITE, URINE AUTO NEGATIVE (NEGATIVE); PROTEIN, URINE AUTO NEGATIVE (NEGATIVE); RBC, URINE AUTO 0 /HPF (0-3); SPECIFIC GRAVITY URINE AUTO 1.004 (1.002-1.035); SQUAMOUS EPITHELIAL CELL UR AU 0 /HPF (0-6); UROBILINOGEN, URINE AUTO 0.2 mg/dL (0.0-2.0); WBC, URINE AUTO 8 /HPF (0-3)
== END ==
LOC: M SFHCADAM 11:58
PROVIDERS: ATTEND Family Medicine
DX: N39.0 Urinary tract infection, site not specified (principal)

== ENCOUNTER → 2021-09-18 | Outpatient (CLI) | payer OTHER | LOC: M LABSMTC 11:27 | PROVIDERS: ATTEND Anesthesiology | DX: Z01.812 Encounter for preprocedural laboratory examination (principal) ==

== ENCOUNTER 2021-09-22 09:12 | Day surgery (SDC) | payer OTHER ==
[~2021-09-22] VITALS: Ht 167.6 cm; Wt 57.2 kg
[~2021-09-22 09:12] MED LIST changes: +LATU120T; +NS 1,000 ML IV ONE; +QUET100T2; +VIT1TAB.4 PO
[2021-09-22] MEDS ORDERED: LIDOCAINE 2% 100MG/5ML SDV (FOR ANES.) As Ordered ONE (10:54)
[2021-09-22] MEDS ORDERED: fentaNYL 100 MCG/2 ML INJECTION As Ordered ONE (10:54)
[2021-09-22] MEDS ORDERED: propofoL 500 MG/50 ML VIAL As Ordered ONE (10:54)
[2021-09-22] MEDS ORDERED: ePHEDrine SULFATE 25 MG/5 ML(5MG/ML) SYRINGE As Ordered ONE (11:05)
[2021-09-22 11:47] VITALS: BP 109/55
== END 2021-09-22 12:02 | disposition home or self-care (01) ==
LOC: M OPP 09:12
PROVIDERS: ATTEND Internal Medicine Gastroenterology
DX: Z12.11 Encounter for screening for malignant neoplasm of colon (principal); K64.8 Other hemorrhoids; Q43.8 Other specified congenital malformations of intestine; D50.9 Iron deficiency anemia, unspecified; K30 Functional dyspepsia; K22.89 Other specified disease of esophagus; K29.70 Gastritis, unspecified, without bleeding; Z98.84 Bariatric surgery status; Z79.890 Hormone replacement therapy; Z79.899 Other long term (current) drug therapy; Z88.8 Allergy status to other drugs, medicaments and biological substances; Z80.3 Family history of malignant neoplasm of breast
CPT/HCPCS: 43239; 45378; 88305; J3010

== ENCOUNTER → 2021-09-29 | Outpatient (CLI) | payer OTHER ==
[~2021-09-29] MED LIST changes: -NS 1,000 ML IV ONE
[2021-09-29 17:07] LABS: APPEARANCE, URINE HAZY (CLEAR); BACTERIA, URINE AUTO NEGATIVE (NEGATIVE); BILIRUBIN, URINE AUTO NEGATIVE (NEGATIVE); BLOOD, URINE BLOOD NEGATIVE (NEGATIVE); COLOR, URINE YELLOW (YELLOW); GLUCOSE, URINE (UA) AUTO NEGATIVE (NEGATIVE); KETONE, URINE AUTO TRACE mg/dL (NEGATIVE); LEUKOCYTE ESTERASE, URINE AUTO 2+ (NEGATIVE); NITRITE, URINE AUTO NEGATIVE (NEGATIVE); PROTEIN, URINE AUTO NEGATIVE (NEGATIVE); RBC, URINE AUTO 2 /HPF (0-3); SPECIFIC GRAVITY URINE AUTO 1.018 (1.002-1.035); SQUAMOUS EPITHELIAL CELL UR AU 2 /HPF (0-6); UROBILINOGEN, URINE AUTO 0.2 mg/dL (0.0-2.0); WBC, URINE AUTO 36 /HPF (0-3)
== END ==
LOC: M LAB 16:33
PROVIDERS: ATTEND Internal Medicine
DX: R82.998 Other abnormal findings in urine (principal)

== ENCOUNTER → 2021-10-06 | Outpatient (CLI) | payer OTHER | LOC: M SLEEP HO 11:21 | PROVIDERS: ATTEND Internal Medicine | DX: R06.83 Snoring (principal); R53.82 Chronic fatigue, unspecified ==

== ENCOUNTER → 2021-10-07 | Outpatient (CLI) | payer OTHER ==
[2021-10-07 11:48] LABS: FREE T4 0.78 NG/DL (0.76-1.46); THYROID STIMULATING HORMONE 8.6 uIU/ML (0.358-3.740)
== END ==
LOC: M LAB 10:39
PROVIDERS: ATTEND Family Medicine
DX: E03.9 Hypothyroidism, unspecified (principal); R82.81 Pyuria

== ENCOUNTER 2021-10-28 09:55 | Emergency (ER) | payer OTHER ==
[~2021-10-28] VITALS: Ht 167.6 cm; Wt 59.1 kg
[2021-10-28] MEDS ORDERED: PYRI1TAB5 PO (11:53)
[2021-10-28] MEDS ORDERED: CLOT10TR PO (11:53)
[2021-10-28 12:06] VITALS: BP 165/73
== END 2021-10-28 12:11 | disposition home or self-care (01) ==
LOC: M ED 09:55
DX: N30.00 Acute cystitis without hematuria (principal); H00.013 Hordeolum externum right eye, unspecified eyelid; B37.0 Candidal stomatitis; E03.9 Hypothyroidism, unspecified; I10 Essential (primary) hypertension; F31.9 Bipolar disorder, unspecified; Z79.899 Other long term (current) drug therapy

== ENCOUNTER → 2022-05-10 | Outpatient (CLI) | payer OTHER ==
[~2022-05-10] MED LIST changes: +PYRI1TAB5 PO
== END ==
LOC: M SOG 08:14
PROVIDERS: ATTEND Orthopaedic Surgery Hand Surgery
DX: M79.645 Pain in left finger(s) (principal); M79.644 Pain in right finger(s); Z53.9 Procedure and treatment not carried out, unspecified reason

== ENCOUNTER → 2022-06-12 | Outpatient (REF) | payer OTHER ==
[2022-06-12 17:51] LABS: HEMATOCRIT 40.1 % (36.0-47.0); MEAN CORPUSCULAR HEMOGLOBIN 33.7 pg (27.0-33.0); MEAN CORPUSCULAR HGB CONC 32.4 g/dl (32.0-36.5); MEAN CORPUSCULAR VOLUME 103.9 fl (80.0-96.0); PLATELET COUNT, AUTOMATED 216 10^3/uL (150-450); RED BLOOD COUNT 3.86 10^6/uL (4.00-5.40); WHITE BLOOD COUNT 6.2 10^3/uL (4.0-10.0)
[2022-06-12 18:30] LABS: BLOOD UREA NITROGEN 11 MG/DL (9-23); CALCIUM LEVEL 9.4 MG/DL (8.3-10.6); CARBON DIOXIDE LEVEL 21 MMOL/L (20-31); CHLORIDE LEVEL 113 MMOL/L (98-107); CREATININE FOR GFR 0.87 MG/DL (0.55-1.30); GLOMERULAR FILTRATION RATE > 60.0 (>45); GLUCOSE, FASTING 73 MG/DL (74-106); POTASSIUM SERUM 4.6 MMOL/L (3.5-5.1); SODIUM LEVEL 143 MMOL/L (136-145)
== END ==
LOC: M SFHCADAM 14:43
PROVIDERS: ATTEND Physician Assistant Medical
DX: Z01.818 Encounter for other preprocedural examination (principal); M20.41 Other hammer toe(s) (acquired), right foot; M21.611 Bunion of right foot

== ENCOUNTER → 2022-06-17 | Outpatient (CLI) | payer OTHER ==
[~2022-06-17] MED LIST changes: +D3 M1CAP2 PO; +LEVO200T4 PO; -QUET100T2; +QUET100T2 PO; +TOPI50TA9 PO; +TRAZ-252 PO
== END ==
LOC: M LABSMTC 09:45
PROVIDERS: ATTEND Anesthesiology
DX: Z01.812 Encounter for preprocedural laboratory examination (principal)

== ENCOUNTER 2022-06-20 11:16 | Day surgery (SDC) | payer OTHER ==
[~2022-06-20] VITALS: Ht 167.6 cm; Wt 53.9 kg
[~2022-06-20 11:16] MED LIST changes: +ceFAZolin SOD 2 GM in IV 1 EA IV ONE
[2022-06-20] MEDS ORDERED: LR 1,000 ML IV SCH ×2 (11:35→14:40)
[2022-06-20] MEDS ORDERED: ONDANSETRON 4MG 2ML VIAL As Ordered ONE (12:16)
[2022-06-20] MEDS ORDERED: LIDOCAINE 2% 100MG/5ML SDV (FOR ANES.) As Ordered ONE (12:16)
[2022-06-20] MEDS ORDERED: propofoL 200 MG/20 ML VIAL As Ordered ONE (12:16)
[2022-06-20] MEDS ORDERED: KETOROLAC 60MG 2ML VIAL As Ordered ONE (12:16)
[2022-06-20] MEDS ORDERED: fentaNYL 100 MCG/2 ML INJECTION As Ordered ONE (12:18)
[2022-06-20] MEDS ORDERED: MIDAZOLAM INJ 2MG/2ML VIAL As Ordered ONE (12:18)
[2022-06-20] MEDS ORDERED: LIDOCAINE 1% SDV 30ML VIAL As Ordered ONE (13:53)
[2022-06-20] MEDS ORDERED: BUPIVACAINE HCL 0.5% 30ML VIAL As Ordered ONE (13:53)
[2022-06-20] MEDS ORDERED: ONDANSETRON 4MG 2ML VIAL IV PRN (14:40)
[2022-06-20] MEDS ORDERED: oxyCODONE 5MG TAB PO PRN (14:40)
[2022-06-20] MEDS ORDERED: HYDROMORPHONE HCL 0.5 MG/ 0.5 ML SYRINGE IV PRN (14:40)
[2022-06-20] MEDS ORDERED: fentaNYL 100 MCG/2 ML INJECTION IV PRN (14:40)
[2022-06-20 16:45] VITALS: BP 126/68
== END 2022-06-20 16:55 | disposition home or self-care (01) ==
LOC: M SDC 11:16
PROVIDERS: ATTEND Podiatrist Foot & Ankle Surgery
DX: M21.611 Bunion of right foot (principal); M20.11 Hallux valgus (acquired), right foot; M20.41 Other hammer toe(s) (acquired), right foot; I10 Essential (primary) hypertension; E03.9 Hypothyroidism, unspecified; F31.9 Bipolar disorder, unspecified; Z91.09 Other allergy status, other than to drugs and biological substances; Z79.899 Other long term (current) drug therapy
CPT/HCPCS: 28285; 28299; 76000; 88300; C1713; J1100; J2405

== ENCOUNTER → 2022-09-20 | Outpatient (REF) | payer OTHER ==
[~2022-09-20] MED LIST changes: +TOPI-254; +TOPI-254 PO; -TOPI50TA9; -TOPI50TA9 PO; -ceFAZolin SOD 2 GM in IV 1 EA IV ONE
[2022-09-20 13:36] LABS: BASO % 0.5 % (0.0-1.0); EOS # 0.1 10^3/uL (0.0-0.5); EOS % 1.4 % (0.0-3.0); HEMOGLOBIN 11.7 g/dl (12.0-15.5); LYMPH # 1.5 10^3/uL (1.5-5.0); LYMPH % 18.7 % (24.0-44.0); MEAN CORPUSCULAR HEMOGLOBIN 33.3 pg (27.0-33.0); MEAN CORPUSCULAR HGB CONC 30.8 g/dl (32.0-36.5); MEAN CORPUSCULAR VOLUME 108.3 fl (80.0-96.0); MONO # 0.9 10^3/uL (0.0-0.8); MONO % 11.7 % (2.0-8.0); NEUTROPHILS # 5.2 10^3/uL (1.5-8.5); NEUTROPHILS % 66.7 % (36.0-66.0); PLATELET COUNT, AUTOMATED 239 10^3/uL (150-450); RED BLOOD COUNT 3.51 10^6/uL (4.00-5.40); WHITE BLOOD COUNT 7.9 10^3/uL (4.0-10.0)
[2022-09-20 14:05] LABS: ALBUMIN 3.2 G/DL (3.2-5.2); ALKALINE PHOSPHATASE 144 U/L (46-116); ALT/SGPT 31 U/L (7.0-40); AST/SGOT 29 U/L (<34); BILIRUBIN,TOTAL 0.6 MG/DL (0.3-1.2); BLOOD UREA NITROGEN 17 MG/DL (9-23); CALCIUM LEVEL 9.4 MG/DL (8.3-10.6); CARBON DIOXIDE LEVEL 20 MMOL/L (20-31); CHLORIDE LEVEL 113 MMOL/L (98-107); CREATININE FOR GFR 0.81 MG/DL (0.55-1.30); GLOMERULAR FILTRATION RATE > 60.0 (>45); GLUCOSE, FASTING 58 MG/DL (74-106); SODIUM LEVEL 143 MMOL/L (136-145); THYROID STIMULATING HORMONE 0.472 uIU/ML (0.55-4.78); TOTAL PROTEIN 6.9 G/DL (5.7-8.2)
== END ==
LOC: M SFHCADAM 11:07
PROVIDERS: ATTEND Physician Assistant Medical
DX: R63.4 Abnormal weight loss (principal); R63.0 Anorexia; R06.09 Other forms of dyspnea; M79.10 Myalgia, unspecified site

== ENCOUNTER → 2022-09-20 | Outpatient (CLI) | payer OTHER | LOC: M ADAMS 11:16 | PROVIDERS: ATTEND Physician Assistant Medical | DX: R06.09 Other forms of dyspnea (principal) ==

== ENCOUNTER → 2023-01-29 | Outpatient (CLI) | payer OTHER ==
[~2023-01-29] MED LIST changes: +SENN-111 PO; -SENN18TA PO
== END ==
LOC: M ADAMS 10:17
PROVIDERS: ATTEND Family Medicine
DX: R06.09 Other forms of dyspnea (principal)

== ENCOUNTER → 2023-01-29 | Outpatient (REF) | payer OTHER ==
[2023-01-29 15:22] LABS: APPEARANCE, URINE HAZY (CLEAR); BACTERIA, URINE AUTO 2+ (NEGATIVE); BILIRUBIN, URINE AUTO NEGATIVE (NEGATIVE); BLOOD, URINE BLOOD NEGATIVE (NEGATIVE); CALCIUM OXALATE CRYSTALS LARGE; COLOR, URINE AMBER (YELLOW); GLUCOSE, URINE (UA) AUTO NEGATIVE (NEGATIVE); KETONE, URINE AUTO TRACE mg/dL (NEGATIVE); LEUKOCYTE ESTERASE, URINE AUTO NEGATIVE (NEGATIVE); MUCUS, URINE SMALL (NEGATIVE); NITRITE, URINE AUTO POSITIVE (NEGATIVE); PROTEIN, URINE AUTO 2+ mg/dL (NEGATIVE); RBC, URINE AUTO 1 /HPF (0-3); SQUAMOUS EPITHELIAL CELL UR AU 0 /HPF (0-6); UROBILINOGEN, URINE AUTO 0.2 mg/dL (0.0-2.0); WBC, URINE AUTO 5 /HPF (0-3)
[2023-01-29 15:27] LABS: HEMATOCRIT 40.1 % (36.0-47.0); HEMOGLOBIN 12.6 g/dl (12.0-15.5); MEAN CORPUSCULAR HEMOGLOBIN 34.7 pg (27.0-33.0); MEAN CORPUSCULAR HGB CONC 31.4 g/dl (32.0-36.5); MEAN CORPUSCULAR VOLUME 110.5 fl (80.0-96.0); PLATELET COUNT, AUTOMATED 166 10^3/uL (150-450); RED BLOOD COUNT 3.63 10^6/uL (4.00-5.40); WHITE BLOOD COUNT 5.2 10^3/uL (4.0-10.0)
[2023-01-29 16:00] LABS: ALKALINE PHOSPHATASE 149 U/L (46-116); ALT/SGPT 36 U/L (7.0-40); AST/SGOT 33 U/L (<34); BILIRUBIN,TOTAL 0.5 MG/DL (0.3-1.2); BLOOD UREA NITROGEN 15 MG/DL (9-23); CALCIUM LEVEL 9.5 MG/DL (8.3-10.6); CARBON DIOXIDE LEVEL 19 MMOL/L (20-31); CHLORIDE LEVEL 114 MMOL/L (98-107); CREATININE FOR GFR 0.85 MG/DL (0.55-1.30); GLOMERULAR FILTRATION RATE > 60.0 (>45); GLUCOSE, FASTING 77 MG/DL (74-106); POTASSIUM SERUM 4.2 MMOL/L (3.5-5.1); SODIUM LEVEL 143 MMOL/L (136-145); TOTAL PROTEIN 6.7 G/DL (5.7-8.2)
[2023-01-29 16:01] LABS: FERRITIN 29.5 NG/ML (7.3-270.7); THYROID STIMULATING HORMONE 8.645 uIU/ML (0.55-4.78)
[2023-01-29 16:03] LABS: FOLATE 15.52 NG/ML (>5.4)
[2023-01-29 16:04] LABS: FREE T4 0.88 NG/DL (0.89-1.76); VITAMIN B12 LEVEL 1453 PG/ML (211-911)
== END ==
LOC: M SFHCADAM 10:06
PROVIDERS: ATTEND Family Medicine
DX: D59.8 Other acquired hemolytic anemias (principal); Z98.84 Bariatric surgery status; R53.83 Other fatigue; E03.9 Hypothyroidism, unspecified; R06.09 Other forms of dyspnea; N39.0 Urinary tract infection, site not specified

== ENCOUNTER → 2023-04-09 | Outpatient (REF) | payer OTHER ==
[~2023-04-09] MED LIST changes: +AMIT8CAP4 PO; +CALC1CAP34 PO; +CENT1TAB PO; +COLL1CAP PO; +LEVO50TA5 PO; +OMEGCAP4 PO; +QUET400T2 PO; +TRAZ-257 PO; +magnesium PO
[2023-04-09 13:40] LABS: ALKALINE PHOSPHATASE 158 U/L (46-116); ALT/SGPT 60 U/L (7.0-40); AST/SGOT 54 U/L (<34); BILIRUBIN,TOTAL 0.5 MG/DL (0.3-1.2); BLOOD UREA NITROGEN 18 MG/DL (9-23); CALCIUM LEVEL 8.5 MG/DL (8.3-10.6); CARBON DIOXIDE LEVEL 21 MMOL/L (20-31); CHLORIDE LEVEL 111 MMOL/L (98-107); CREATININE FOR GFR 0.76 MG/DL (0.55-1.30); GLOMERULAR FILTRATION RATE > 60.0 (>45); GLUCOSE, FASTING 80 MG/DL (74-106); PREALBUMIN 26.3 MG/DL (10.0-40.0); SODIUM LEVEL 139 MMOL/L (136-145); TOTAL PROTEIN 6.4 G/DL (5.7-8.2)
[2023-04-09 13:44] LABS: HEMATOCRIT 38.5 % (36.0-47.0); HEMOGLOBIN 12.3 g/dl (12.0-15.5); MEAN CORPUSCULAR HEMOGLOBIN 35.2 pg (27.0-33.0); MEAN CORPUSCULAR HGB CONC 31.9 g/dl (32.0-36.5); MEAN CORPUSCULAR VOLUME 110.3 fl (80.0-96.0); PLATELET COUNT, AUTOMATED 169 10^3/uL (150-450); RED BLOOD COUNT 3.49 10^6/uL (4.00-5.40); WHITE BLOOD COUNT 5.6 10^3/uL (4.0-10.0)
[2023-04-09 13:46] LABS: FREE T4 1.13 NG/DL (0.89-1.76)
== END ==
LOC: M SFHCADAM 08:45
PROVIDERS: ATTEND Family Medicine
DX: E03.9 Hypothyroidism, unspecified (principal); E44.0 Moderate protein-calorie malnutrition; D59.8 Other acquired hemolytic anemias

== ENCOUNTER → 2023-04-17 | Outpatient (CLI) | payer OTHER | LOC: M WHC 07:30 | PROVIDERS: ATTEND Family Medicine | DX: Z12.31 Encounter for screening mammogram for malignant neoplasm of breast (principal) ==